=== PATIENT | female | born 1955 | race Caucasian/White ===

== ENCOUNTER 2020-05-06 06:07 | Outpatient (REF) | payer MEDICARE, OTHER, SELFPAY ==
[2020-05-06 11:26] LABS: Estimated Average Glucose 117 mg/dL; Hemoglobin A1c % 5.7 %
[2020-05-06 11:50] LABS: Anion Gap 15 (12-20); Blood Urea Nitrogen 14 mg/dL (9-16); Calcium 9.3 mg/dL (8.4-10.2); Carbon Dioxide 27 mmol/L (22-29); Chloride 106 mmol/L (96-108); Cholesterol 215 mg/dL; Estimated Glomerular Filt Rate > 60; Glucose Fasting 99 mg/dL (60-99); HDL Cholesterol 57 mg/dL; LDL Cholesterol Calculated 129 mg/dl; Potassium 4.2 mmol/l (3.3-5.1); Sodium 144 mmol/L (135-145); Triglycerides 149 mg/dL
[2020-05-06 12:16] LABS: Creatinine Urine 119.11 mg/dL; Microalbum/Creatinine Ratio Ur 11.7 ug/mg cr
== END 2020-05-06 06:08 | disposition home or self-care (01) ==
LOC: HO.HMGCLDS 06:07
PROVIDERS: PCP Internal Medicine; Visit Provider Internal Medicine
DX: E13.9 Other specified diabetes mellitus without complications (principal)
CPT/HCPCS: 80048; 80061; 82043; 83036

== ENCOUNTER 2020-09-19 | Outpatient (REF) | payer MEDICARE, OTHER, SELFPAY | END 2020-09-19 00:01 | disposition home or self-care (01) | LOC: HO.LNP | PROVIDERS: Visit Provider Hospitalist | DX: Z13.89 Encounter for screening for other disorder (principal) ==

== ENCOUNTER 2020-09-20 11:48 | Outpatient (REF) | payer MEDICARE, OTHER, SELFPAY | END 2020-09-20 11:49 | disposition home or self-care (01) | LOC: HO.LNP 11:48 | PROVIDERS: Visit Provider Hospitalist | DX: R30.0 Dysuria (principal) | CPT/HCPCS: 87086; 87088; 87186 ==

== ENCOUNTER 2020-11-29 06:00 | Outpatient (REF) | payer MEDICARE, OTHER, SELFPAY ==
[2020-11-29 11:38] LABS: Estimated Average Glucose 126 mg/dL
[2020-11-29 11:45] LABS: Alanine Aminotransferase 18 U/L (0-31); Albumin Level 4.5 g/dL (3.5-5.0); Alkaline Phosphatase 41 U/L (39-117); Anion Gap 17 (12-20); Aspartate Amino Transferase 17 U/L (5-31); Bilirubin Direct 0.2 mg/dL (0.0-0.5); Bilirubin Total 0.8 mg/dL (0.0-1.0); Blood Urea Nitrogen 13 mg/dL (9-16); Calcium 9.9 mg/dL (8.4-10.2); Carbon Dioxide 25 mmol/L (22-29); Chloride 107 mmol/L (96-108); Cholesterol 214 mg/dL; Estimated Glomerular Filt Rate > 60; Glucose Fasting 116 mg/dL (60-99); HDL Cholesterol 53 mg/dL; LDL Cholesterol Calculated 130 mg/dl; Potassium 4.2 mmol/L (3.3-5.1); Sodium 145 mmol/L (135-145); Total Protein 7.1 g/dL (6.5-8.0); Triglycerides 159 mg/dL
[2020-12-03 19:32] LABS: Vitamin D 25-OH, D2 <4 ng/mL; Vitamin D 25-OH, D3 43 ng/mL; Vitamin D 25-OH, Total 43 ng/mL (30-100)
== END 2020-11-29 06:01 | disposition home or self-care (01) ==
LOC: HO.HMGCLDS 06:00
PROVIDERS: PCP Internal Medicine; Visit Provider Internal Medicine
DX: E13.9 Other specified diabetes mellitus without complications (principal); E78.9 Disorder of lipoprotein metabolism, unspecified; G47.9 Sleep disorder, unspecified
CPT/HCPCS: 36415; 80048; 80061; 80076; 82306; 83036; 87086; 87088; 87186

== ENCOUNTER 2020-11-29 08:43 | Outpatient (REF) | payer MEDICARE, OTHER, SELFPAY | END 2020-11-29 08:44 | disposition home or self-care (01) | LOC: HO.LAB 08:43 | PROVIDERS: Visit Provider Nurse Practitioner Family | DX: Z13.89 Encounter for screening for other disorder (principal) ==

== ENCOUNTER 2021-06-15 06:06 | Outpatient (REF) | payer MEDICARE, OTHER, SELFPAY ==
[2021-06-15 11:39] LABS: Estimated Average Glucose 126 mg/dL
[2021-06-15 11:51] LABS: Alanine Aminotransferase 19 U/L (0-31); Albumin Level 4.5 g/dL (3.5-5.0); Alkaline Phosphatase 41 U/L (39-117); Anion Gap 14 (12-20); Aspartate Amino Transferase 19 U/L (5-31); Bilirubin Total 0.6 mg/dL (0.0-1.0); Blood Urea Nitrogen 14 mg/dL (9-16); Calcium 9.8 mg/dL (8.4-10.2); Carbon Dioxide 27 mmol/L (22-29); Chloride 108 mmol/L (96-108); Cholesterol 220 mg/dL; Estimated Glomerular Filt Rate > 60; Glucose Fasting 114 mg/dL (60-99); HDL Cholesterol 56 mg/dL; LDL Cholesterol Calculated 134 mg/dl; Potassium 4.2 mmol/L (3.3-5.1); Sodium 145 mmol/L (135-145); Total Protein 7.1 g/dL (6.5-8.0); Triglycerides 154 mg/dL
== END 2021-06-15 06:07 | disposition home or self-care (01) ==
LOC: HO.HMGCLDS 06:06
PROVIDERS: Visit Provider Internal Medicine
DX: E78.9 Disorder of lipoprotein metabolism, unspecified (principal); G47.9 Sleep disorder, unspecified; E13.9 Other specified diabetes mellitus without complications; M47.816 Spondylosis without myelopathy or radiculopathy, lumbar region; N39.0 Urinary tract infection, site not specified; Z85.51 Personal history of malignant neoplasm of bladder
CPT/HCPCS: 36415; 80053; 80061; 83036

== ENCOUNTER 2021-06-29 11:13 | Outpatient (REF) | payer MEDICARE, OTHER, SELFPAY ==
[2021-06-29 11:58] LABS: Appearance Urine HAZY; Color Urine STRAW; Glucose Urine UA NEG (NEG); Leukocyte Esterase Urine 2+ (NEG); Nitrite Urine POS (NEG); Specific Gravity - Urine <= 1.005 (1.005-1.025); UACC Culture Trigger YES; Urine Blood TRACE (NEG); Urine Ketones NEG (NEG); Urine Protein NEG (NEG-TRACE)
[2021-06-29 12:52] LABS: Bacteria Urine 3+ /LPF; RBC Urine 0-2 /HPF (0); Squamous Epithelial Cell Urine 1+ /LPF; WBC Clumps Urine NOTED
== END 2021-06-29 11:14 | disposition home or self-care (01) ==
LOC: HO.LNP 11:13
PROVIDERS: Visit Provider Physician Assistant Medical
DX: N30.01 Acute cystitis with hematuria (principal)
CPT/HCPCS: 81001; 81003; 87086; 87088; 87186

== ENCOUNTER 2021-07-10 09:45 | Outpatient (REF) | payer MEDICARE, OTHER, SELFPAY ==
[2021-07-10 16:22] LABS: Urine Cytology See Pathology rpt
== END 2021-07-10 09:46 | disposition home or self-care (01) ==
LOC: HO.LNP 09:45
PROVIDERS: PCP Internal Medicine
DX: N39.0 Urinary tract infection, site not specified (principal); C67.9 Malignant neoplasm of bladder, unspecified
CPT/HCPCS: 88112; 99202

== ENCOUNTER 2021-09-01 09:42 | Outpatient (REF) | payer MEDICARE, OTHER, SELFPAY ==
--- NOTE | ~2021-09-01 | XR_ITS ---
EXAMINATION: XR ABDOMEN COMPLETE CLINICAL INDICATION: Unspecified abdominal pain. COMPARISON: None TECHNIQUE: 2 views of the abdomen. FINDINGS: There is a nonobstructive bowel gas pattern. Mild gas and stool are seen within the colon distally to the rectum. Small radiopaque densities overlie the right midabdomen and kidney. The osseous structures are unremarkable. XR/XR abdomen min 2V IMPRESSION: 1. Nonobstructive bowel gas pattern. 2. Calcifications overlying the right midabdomen could represent intrarenal calculi.
[2021-09-01 11:52] LABS: Hematocrit 43.8 % (37.0-47.0); Hemoglobin 14.5 g/dl (12.0-16.0); Mean Corpuscular HGB Conc 33.1 g/dl (31.0-35.0); Mean Corpuscular Hemoglobin 32.4 pg (27.0-33.0); Mean Corpuscular Volume 97.8 fL (80.0-98.0); Platelet Count 235 X10*3/uL (160-400); Red Blood Count 4.48 X10*6/uL (4.20-5.50); Red Cell Distribution Width 12.7 % (11.0-16.0); White Blood Count 9.9 X10*3/uL (4.8-10.8)
[2021-09-01 12:07] LABS: Alanine Aminotransferase 18 U/L (0-31); Albumin Level 4.9 g/dL (3.5-5.0); Alkaline Phosphatase 52 U/L (39-117); Anion Gap 17 (12-20); Aspartate Amino Transferase 19 U/L (5-31); Bilirubin Direct 0.2 mg/dL (0.0-0.5); Bilirubin Total 0.6 mg/dL (0.0-1.0); Blood Urea Nitrogen 10 mg/dL (9-16); Calcium 10.1 mg/dL (8.4-10.2); Carbon Dioxide 25 mmol/L (22-29); Chloride 105 mmol/L (96-108); Estimated Glomerular Filt Rate > 60; Glucose Random 111 mg/dL (60-115); Potassium 4.6 mmol/L (3.3-5.1); Sodium 142 mmol/L (135-145); Total Protein 7.7 g/dL (6.5-8.0)
== END 2021-09-01 09:43 | disposition home or self-care (01) ==
LOC: HO.HMGCX 09:42
PROVIDERS: PCP Internal Medicine; Visit Provider Internal Medicine
DX: R10.9 Unspecified abdominal pain (principal)
CPT/HCPCS: 36415; 74019; 80048; 80076; 85027

== ENCOUNTER 2021-09-25 09:51 | Outpatient (REF) | payer MEDICARE, OTHER, SELFPAY ==
--- NOTE | ~2021-09-25 | US_ITS ---
EXAMINATION: US RETROPERITONEAL LIMITED (RENAL ONLY) CLINICAL INFORMATION: Malignant neoplasm of bladder, unspecified. COMPARISON: X-ray abdomen 09/01/2021 TECHNIQUE: Real-time imaging of the kidneys. FINDINGS: RIGHT KIDNEY: 10.7 x 3.8 x 5.8 cm (SAG x AP x TRV). The kidney is normal in size, contour, and echogenicity. Renal cortical thickness is normal. There are 2 small echogenic densities in the midpole suggestive of small stones. There is mild dilatation of the right renal pelvis/pelviectasis. No definite hydronephrosis/calyceal dilatation is seen. No focal parenchymal lesions. LEFT KIDNEY: 10.7 x 5.0 x 6.0 cm (SAG x AP x TRV). The kidney is normal in size, contour, and echogenicity. Renal cortical thickness is normal. No calculi or focal parenchymal lesions. No hydronephrosis. US/US renal BI IMPRESSION: Small right renal stones. Mild dilatation of the right renal pelvis or pelviectasis.
== END 2021-09-25 09:52 | disposition home or self-care (01) ==
LOC: HO.HMGCX 09:51
DX: C67.9 Malignant neoplasm of bladder, unspecified (principal)
CPT/HCPCS: 76775

== ENCOUNTER 2021-10-05 08:48 | Outpatient (REF) | payer MEDICARE, OTHER, SELFPAY ==
[2021-10-05 17:25] LABS: Urine Cytology See Pathology rpt
== END 2021-10-05 08:49 | disposition home or self-care (01) ==
LOC: HO.LAB 08:48
PROVIDERS: PCP Internal Medicine
DX: N39.0 Urinary tract infection, site not specified (principal); R31.9 Hematuria, unspecified; Z85.51 Personal history of malignant neoplasm of bladder
CPT/HCPCS: 88112; 99212

== ENCOUNTER 2021-10-31 10:22 | Outpatient (REF) | payer MEDICARE, OTHER, SELFPAY ==
--- NOTE | ~2021-10-31 | MM_ITS ---
EXAMINATION: MM SCREENING DIGITAL BREAST TOMOSYNTHESIS, BILATERAL CLINICAL INFORMATION: Screening. Asymptomatic. The lifetime risk of breast cancer based on the Tyrer-Cuzick Model is 3.3%. COMPARISON: Mammography: November 25, 2017 and studies dating back to October 06, 2003 TECHNIQUE: Digital breast tomosynthesis is performed in both the craniocaudal and mediolateral oblique views along with computer-aided detection (CAD). Synthesized 2D images are generated from the tomosynthesis. FINDINGS: The breasts are almost entirely fatty (ACR BI-RADS breast composition Category a). There are no significant masses, abnormal calcifications, or other abnormalities. MM/MM tomosynthesis screening BI IMPRESSION: There are no significant changes from prior study. ASSESSMENT: BI-RADS 1: Negative RECOMMENDATION: Routine annual mammography screening. This patient's information was entered into a reminder system with a target due date for their next mammogram.
== END 2021-10-31 10:23 | disposition home or self-care (01) ==
LOC: HO.MAMMO 10:22
PROVIDERS: Visit Provider Internal Medicine
DX: Z12.31 Encounter for screening mammogram for malignant neoplasm of breast (principal)
CPT/HCPCS: 77063; 77067

== ENCOUNTER 2022-01-01 11:43 | Outpatient (REF) | payer MEDICARE, OTHER, SELFPAY | END 2022-01-01 11:44 | disposition home or self-care (01) | LOC: HO.LNP 11:43 | PROVIDERS: Visit Provider Nurse Practitioner Family | DX: R35.0 Frequency of micturition (principal) | CPT/HCPCS: 87086; 87088; 87186 ==

== ENCOUNTER 2022-02-09 06:07 | Outpatient (REF) | payer MEDICARE, OTHER, SELFPAY ==
[2022-02-09 11:39] LABS: Estimated Average Glucose 123 mg/dL; Hemoglobin A1c % 5.9 %
[2022-02-09 12:03] LABS: Alanine Aminotransferase 19 U/L (0-31); Albumin Level 4.5 g/dL (3.5-5.0); Alkaline Phosphatase 42 U/L (39-117); Anion Gap 16 (12-20); Aspartate Amino Transferase 20 U/L (5-31); Bilirubin Total 0.5 mg/dL (0.0-1.0); Blood Urea Nitrogen 13 mg/dL (9-16); Calcium 9.8 mg/dL (8.4-10.2); Carbon Dioxide 26 mmol/L (22-29); Chloride 109 mmol/L (96-108); Estimated Glomerular Filt Rate > 60; Glucose Random 112 mg/dL (60-115); Potassium 4.2 mmol/L (3.3-5.1); Sodium 147 mmol/L (135-145); Total Protein 7.1 g/dL (6.5-8.0)
[2022-02-09 12:07] LABS: Creatinine Urine 86.22 mg/dL; Microalbum/Creatinine Ratio Ur 13.9 ug/mg cr
[2022-02-12 02:12] LABS: LDL Cholesterol Direct 157 mg/dL (<100)
== END 2022-02-09 06:08 | disposition home or self-care (01) ==
LOC: HO.HMGCLDS 06:07
PROVIDERS: PCP Internal Medicine; Visit Provider Internal Medicine
DX: Z00.01 Encounter for general adult medical examination with abnormal findings (principal); M47.816 Spondylosis without myelopathy or radiculopathy, lumbar region; G47.9 Sleep disorder, unspecified; E78.9 Disorder of lipoprotein metabolism, unspecified; E13.9 Other specified diabetes mellitus without complications
CPT/HCPCS: 36415; 80053; 82043; 83036; 83721

== ENCOUNTER 2022-03-14 08:18 | Day surgery (SDC) | payer MEDICARE, OTHER, SELFPAY ==
--- NOTE | 2022-03-13 12:10 | HO.ANESPROP2 ---
Documented by User: Mae Monroy NP 03/13/22 12:11 HPI - Anesthesia Eval Consult details Narrative: 66yo for Colonoscopy PMFSH Active Problems Active Problems: All Active Problems (Updated 03/13/22 @ 11:15 by Elida Georges RN) Lipid disorder (Acute) Difficulty sleeping (Acute) Dysuria (Acute) UTI (urinary tract infection) (Acute) Lipid disorder (Acute) Degenerative joint disease (DJD) of lumbar spine (Acute) Recurrent UTI (Acute) Recurrent UTI (Acute) Abdominal pain (Acute) Encounter for general adult medical examination with abnormal findings (Acute) Encounter for routine gynecological examination (Acute) Breast screening (Acute) Left lumbar radiculitis (Acute) Anxiety, generalized (Acute) Renal calculi (Acute) History of bladder cancer (Acute) Bladder cancer (Acute) Diabetes 1.5, managed as type 2 (Acute) Past Medical History Medical History Anxiety Arthritis Diabetes 1.5, managed as type 2 Endometriosis Family history of colon cancer in father Family history of throat cancer History of bladder cancer Hx of lipoma Hyperlipidemia Renal calculi Family History Family History Father Throat cancer Mother CVD (cardiovascular disease) Heart disease Kidney disease Sister Metastatic cancer Maternal Grandmother No problems noted. Maternal Grandfather No problems noted. Paternal Grandfather No problems noted. Paternal Grandmother No problems noted. Sister No problems noted. Sister No problems noted. Son No problems noted. Daughter No problems noted. Daughter Substance use disorder Surgical History Surgical History History of biopsy History of bladder surgery History of colonoscopy History of eye surgery History of hysterectomy History of laryngoscopy Hx of hysterectomy Social History Social History Housing: House Alcohol intake: never Patient Tobacco Use Status: Current everyday Tobacco user Cigarette Packs Per Day: 0.5 e-Cigarette/Vaping Use: Never Used Are you DNR?: No Advance Directives: No Advance Directives Information Provided: Yes Recently lost weight without trying: No Nutrition Risks: No Nutritional Risk Current occupational status: retired Cognitive needs: No Hearing needs: No Vision needs: Yes Meds Allergies Allergy/AdvReac Type Severity Reaction Status Date / Time levofloxacin [From LEVAQUIN] Allergy Unknown RED LINE Verified 02/21/22 13:55 UP ARM FROM IV SITE, redness, itching, swelling varenicline Allergy Unknown agitation Verified 02/21/22 13:55 barium sulfate AdvReac Unknown agitation Verified 02/21/22 13:55 levaquin Allergy Unknown redness/itc Uncoded 02/21/22 13:55 mendy/sara mckay Home Medications Medication Instructions Recorded Confirmed Last Taken Type brimonidine 0.2 % eye drops 1 drp ophthalmic (eye) BID 07/12/20 03/14/22 03/13/22 History cholecalciferol (vitamin D3) 25 25 mcg PO DAILY 07/12/20 03/14/22 03/07/22 History mcg (1,000 unit) tablet multivitamin (Daily Multi-Vitamin 1 tab PO DAILY 07/12/20 03/14/22 03/07/22 History tablet) aspirin 81 mg tablet,delayed 81 mg PO DAILY 11/29/20 03/14/22 02/28/22 History release (Adult Aspirin Regimen) bimatoprost 0.01 % eye drops 1 drp ophthalmic (eye) BEDTIME 12/06/20 03/14/22 03/13/22 History dorzolamide 2 % eye drops 1 drp ophthalmic (eye) DAILY 06/14/21 03/14/22 03/13/22 History timolol 0.25 % eye drops 1 drp ophthalmic (eye) DAILY 02/21/22 03/14/22 03/13/22 History Exam Exam Date and Time: March 13, 2022 121 Pertinent Lab Results Pertinent Lab Results: Laboratory Tests 09/01/21 02/09/22 10:00 06:14 WBC 9.9 Hgb 14.5 Hct 43.8 Plt Count 235 Sodium 147 H Potassium 4.2 Chloride 109 H Carbon Dioxide 26 BUN 13 Creatinine 0.80 Assessment and Plan Assessment Anesthesia Assessment: Chart Reviewed Documented by User: Mindy Gill MD 03/14/22 10:22 [facility] Past Medical History Medical History Anxiety Arthritis Diabetes 1.5, managed as type 2 Endometriosis Family history of colon cancer in father Family history of throat cancer History of bladder cancer Hx of lipoma Hyperlipidemia Renal calculi Family History Family History Father Throat cancer Mother CVD (cardiovascular disease) Heart disease Kidney disease Sister Metastatic cancer Maternal Grandmother No problems noted. Maternal Grandfather No problems noted. Paternal Grandfather No problems noted. Paternal Grandmother No problems noted. Sister No problems noted. Sister No problems noted. Son No problems noted. Daughter No problems noted. Daughter Substance use disorder Surgical History Surgical History History of biopsy History of bladder surgery History of colonoscopy History of eye surgery History of hysterectomy History of laryngoscopy Hx of hysterectomy History of Problems with Anesthesia: No Social History Social History Housing: House Alcohol intake: never Patient Tobacco Use Status: Current everyday Tobacco user Cigarette Packs Per Day: 0.5 e-Cigarette/Vaping Use: Never Used Are you DNR?: No Advance Directives: No Advance Directives Information Provided: Yes Recently lost weight without trying: No Nutrition Risks: No Nutritional Risk Current occupational status: retired Cognitive needs: No Hearing needs: No Vision needs: Yes Meds Allergies Allergy/AdvReac Type Severity Reaction Status Date / Time levofloxacin [From LEVAQUIN] Allergy Unknown RED LINE Verified 02/21/22 13:55 UP ARM FROM IV SITE, redness, itching, swelling varenicline Allergy Unknown agitation Verified 02/21/22 13:55 barium sulfate AdvReac Unknown agitation Verified 02/21/22 13:55 levaquin Allergy Unknown redness/itc Uncoded 02/21/22 13:55 mendy/swelli ng Home Medications Medication Instructions Recorded Confirmed Last Taken Type brimonidine 0.2 % eye drops 1 drp ophthalmic (eye) BID 07/12/20 03/14/22 03/13/22 History cholecalciferol (vitamin D3) 25 25 mcg PO DAILY 07/12/20 03/14/22 03/07/22 History mcg (1,000 unit) tablet multivitamin (Daily Multi-Vitamin 1 tab PO DAILY 07/12/20 03/14/22 03/07/22 History tablet) aspirin 81 mg tablet,delayed 81 mg PO DAILY 11/29/20 03/14/22 02/28/22 History release (Adult Aspirin Regimen) bimatoprost 0.01 % eye drops 1 drp ophthalmic (eye) BEDTIME 12/06/20 03/14/22 03/13/22 History dorzolamide 2 % eye drops 1 drp ophthalmic (eye) DAILY 06/14/21 03/14/22 03/13/22 History timolol 0.25 % eye drops 1 drp ophthalmic (eye) DAILY 02/21/22 03/14/22 03/13/22 History Exam Airway Mallampati Class: II (Edentulous) TM Dist: >3cm Neck ROM: Full Denture: Upper and Lower Loose/Missing/Broken Teeth: Yes, Upper and Lower Heart: RRR Lungs: CTA Assessment and Plan Assessment Anesthesia Assessment: Anesthesia Plan Discussed Final Anesthetic Review History of Problems with Anesthesia: No NPO: Yes ASA Class: II Final Preanesthetic Review: Meds/Allgs Chart Reviewed, Consent Obtained/Reviewed and Anes Risks/Benef Reviewed Patient Risk: Low Procedure Risk: Low Anesthetic Plan Anesthetic Plan: MAC: Disposition: Standard PACU
[2022-03-14 07:14] VITALS: BMI 23.9
[2022-03-14 08:31] VITALS: BP 105/74; PULSE 102; RESP 17; TEMP 36.6; O2SAT 98
[2022-03-14 08:48] LABS: Glucose, Whole Blood 126 mg/dL (60-115)
[2022-03-14] MEDS: Lactated Ringers 1,000 ML 100 ML IVCONT (08:57)
[2022-03-14 11:04] VITALS: BP 140/75; PULSE 95; RESP 18; TEMP 36.5; O2SAT 99
--- NOTE | 2022-03-14 11:05 | PM.OP ---
Brief Operative Note Date of Service: 03/14/22 Pre-op diagnosis: Screening Post-op diagnosis: other (Colon polyp) Procedure: Colonoscopy to the cecum with hot snare polypectomy Surgeon: Jian Ro Anesthesia: MAC Was an Automotive Engineer used for this Procedure?: No Estimated blood loss (mL): 1.0 Pathology: other (A. Transverse colon polyp) Condition: stable Disposition: PACU
[2022-03-14 11:19] VITALS: BP 151/73; PULSE 75; RESP 18; TEMP 36.6; O2SAT 99
[2022-03-14 11:38] VITALS: BP 130/76; PULSE 75; RESP 18; TEMP 36.5; O2SAT 99
--- NOTE | 2022-03-14 11:40 | OP_ITS ---
SURGEON: Jian Ro MD INDICATIONS: The patient presents for evaluation of colorectal cancer screening and family history of colon cancer. Full consent has been obtained from her for this, including risks of bleeding and perforation. PREOPERATIVE DIAGNOSIS: POSTOPERATIVE DIAGNOSIS: PROCEDURE PERFORMED: Colonoscopy to the cecum and terminal ileum with hot snare polypectomy. ESTIMATED BLOOD LOSS: COMPLICATIONS: ANESTHESIA: Monitored anesthesia care. ASSISTANTS: SPECIMENS: PREOPERATIVE DIAGNOSES: Colorectal cancer screening, personal history of tubular adenoma of the colon, family history of colon cancer. POSTOPERATIVE DIAGNOSES: Colorectal cancer screening, personal history of tubular adenoma of the colon, family history of colon cancer, colon polyp, diverticulosis, and internal hemorrhoids. DESCRIPTION OF PROCEDURE: The patient was placed in left lateral decubitus position. The digital rectal exam revealed no abnormalities. The Olympus video pediatric colonoscope was entered into the rectum and advanced easily to the cecum. Once in the cecum, I did identify a normal-appearing cecal pouch with appendiceal orifice and a normal-appearing ileocecal valve. The terminal ileum was cannulated and appeared normal. Scope was withdrawn back in the colon. The entire cecum and ileocecal valve appeared normal. The scope was slowly withdrawn assessing all mucosal surfaces carefully. Preparation was excellent. In the area of the transverse colon was an approximately 12 mm polyp on a fold, which was removed by hot snare polypectomy in piecemeal fashion with pieces recovered by suction. Post polypectomy, there did not appear to be any residual polyp nor bleeding. I did not visualize any other polyps, colitis, nor angiodysplasia. There was a moderate amount of diverticulosis in the sigmoid colon. In the rectum, scope was retroflexed visualizing some internal hemorrhoids but no other pathology. The rectal mucosa appeared normal. The scope was straightened and withdrawn from the patient. She tolerated the procedure well and was returned to the recovery area in stable condition. IMPRESSION: 1. Colon polyp. 2. Diverticulosis. 3. Internal hemorrhoids. PLAN: The results of the pathology will be checked. Given her previous history of a tubular adenoma and family history of colon cancer, I would recommend a followup colonoscopy in 5 years for further screening. She will otherwise see me on a p.r.n. basis. She was advised not to use any aspirin or NSAIDs for 1 week. MD DESHAWN Sanchez/THANG / [id number]
== END 2022-03-14 12:00 | disposition home or self-care (01) ==
PROVIDERS: PCP Internal Medicine; Visit Provider Internal Medicine
PROC: 0DJD8ZZ Inspection of Lower Intestinal Tract, Via Natural or Artificial Opening Endoscopic (ICD-10-PCS; CPT 45378; principal; 2022-03-14 09:40)
DX: Z12.11 Encounter for screening for malignant neoplasm of colon (principal); Z86.010 Personal history of colon polyps; K64.8 Other hemorrhoids; Z80.0 Family history of malignant neoplasm of digestive organs; K59.00 Constipation, unspecified; D12.3 Benign neoplasm of transverse colon; K57.30 Diverticulosis of large intestine without perforation or abscess without bleeding; E11.9 Type 2 diabetes mellitus without complications; E78.5 Hyperlipidemia, unspecified; Z85.51 Personal history of malignant neoplasm of bladder; Z79.84 Long term (current) use of oral hypoglycemic drugs; Z79.82 Long term (current) use of aspirin; Z79.899 Other long term (current) drug therapy; F17.200 Nicotine dependence, unspecified, uncomplicated; Z98.890 Other specified postprocedural states
CPT/HCPCS: 45385; 82947; 88305

== ENCOUNTER 2022-09-20 06:02 | Outpatient (REF) | payer MEDICARE, OTHER, SELFPAY ==
[2022-09-20 11:38] LABS: Appearance Urine Clear; Color Urine Yellow; Glucose Urine UA Negative (Negative); Leukocyte Esterase Urine Trace (Negative); Nitrite Urine Negative (Negative); PH 5.5 (5.0-9.0); Specific Gravity - Urine 1.015 (1.005-1.025); UMIC TRIGGER UACC YES; Urine Blood Negative (Negative); Urine Ketones Negative (Negative); Urine Protein Negative (Neg-Trace)
[2022-09-20 11:43] LABS: Bacteria Urine None Seen (None Seen); Hyaline Casts Urine 0-2 /LPF (0-2); RBC Urine 0-2 /HPF (0-2); WBC Urine 0-5 /HPF (0-5)
[2022-09-20 11:53] LABS: Estimated Average Glucose 128 mg/dL; Hemoglobin A1c % 6.1 %
[2022-09-20 12:36] LABS: Alanine Aminotransferase 18 U/L (0-31); Albumin Level 4.5 g/dL (3.5-5.0); Alkaline Phosphatase 37 U/L (39-117); Anion Gap 14 (12-20); Aspartate Amino Transferase 21 U/L (5-31); Bilirubin Total 0.7 mg/dL (0.0-1.0); Blood Urea Nitrogen 15 mg/dL (9-16); Calcium 9.6 mg/dL (8.4-10.2); Carbon Dioxide 27 mmol/L (22-29); Chloride 109 mmol/L (96-108); Cholesterol 208 mg/dL; Estimated Glomerular Filt Rate > 60; Glucose Fasting 108 mg/dL (60-99); HDL Cholesterol 51 mg/dL; LDL Cholesterol Calculated 133 mg/dl; Potassium 4.5 mmol/L (3.3-5.1); Sodium 145 mmol/L (135-145); Total Protein 6.8 g/dL (6.5-8.0); Triglycerides 122 mg/dL
[2022-09-20 12:37] LABS: Creatinine Urine 97.92 mg/dL; Microalbum/Creatinine Ratio Ur 9.1 ug/mg cr
== END 2022-09-20 06:03 | disposition home or self-care (01) ==
LOC: HO.HMGCLDS 06:02
PROVIDERS: PCP Internal Medicine; Visit Provider Internal Medicine
DX: E13.9 Other specified diabetes mellitus without complications (principal); F41.1 Generalized anxiety disorder; E78.9 Disorder of lipoprotein metabolism, unspecified; G47.9 Sleep disorder, unspecified
CPT/HCPCS: 36415; 80053; 80061; 81001; 82043; 83036

== ENCOUNTER 2022-10-14 18:53 | Emergency (ER) | payer MEDICARE, OTHER, SELFPAY ==
[2022-10-14 18:57] VITALS: BP 117/75; PULSE 94; RESP 18; TEMP 36.8; O2SAT 96; BMI 24.4
[2022-10-14 19:29] LABS: Alanine Aminotransferase 18 U/L (0-31); Albumin Level 4.5 g/dL (3.5-5.0); Alkaline Phosphatase 39 U/L (39-117); Anion Gap 13 (12-20); Aspartate Amino Transferase 19 U/L (5-31); Bilirubin Total 0.4 mg/dL (0.0-1.0); Blood Urea Nitrogen 15 mg/dL (9-16); Carbon Dioxide 25 mmol/L (22-29); Chloride 109 mmol/L (96-108); Creatinine Clr Calc Pharmacy 59.2; Estimated Glomerular Filt Rate > 60; Glucose Random 97 mg/dL (60-115); Potassium 4.9 mmol/L (3.3-5.1); Sodium 142 mmol/L (135-145)
[2022-10-14 19:46] LABS: Hematocrit 39.9 % (37.0-47.0); Hemoglobin 13.2 g/dl (12.0-16.0); Mean Corpuscular HGB Conc 33.1 g/dl (31.0-35.0); Mean Corpuscular Hemoglobin 32.2 pg (27.0-33.0); Mean Corpuscular Volume 97.3 fL (80.0-98.0); Mean Platelet Volume 10.2 fL (9.4-12.3); Platelet Count 197 X10*3/uL (160-400); Red Cell Distribution Width 12.7 % (11.0-16.0)
[2022-10-14 19:51] VITALS: BP 143/61; PULSE 82; RESP 16; TEMP 36.8; O2SAT 97
[2022-10-14 19:51] LABS: WBC ABN SCTR FOR CBC 1
--- NOTE | 2022-10-14 19:54 | MHC.EDTECH ---
THIS PCT JUST ASSUMED CARE OF PT VITALS SIGN TAKEN ,URINE SAMPLE COLLECTED AND SENT TO LAB .
[2022-10-14 19:57] LABS: Eosinophils Percent Manual 1 % (0-4)
[2022-10-14 20:00] LABS: RBC Morphology NORMAL
[2022-10-14 20:01] LABS: Platelet Estimate NORMAL (NORMAL); Platelet Morphology Comment NORM
[2022-10-14 20:06] LABS: Lymphocytes Percent Manual 26 % (20-40); Monocytes Percent Manual 6 % (2-11); Neutrophils Percent Manual 67 % (45-73)
[2022-10-14 20:07] LABS: Band Neutrophils Percent 0 % (3-5); Eosinophils Absolute Manual 0.2 X10*3/uL (0.0-0.4); Lymphocytes Absolute Manual 4.8 X10*3/uL (1.2-4.9); Monocytes Absolute Manual 1.1 X10*3/uL (0.1-1.2); Neutrophils Absolute Manual 12.5 X10*3/uL (2.0-8.3); White Blood Count 18.6 X10*3/uL (4.8-10.8)
--- NOTE | 2022-10-14 20:07 | ED.FEMALEGU ---
HPI - Female Genitourinary General Chief complaint: Urogenital-Female Stated complaint: ?UTI Time Seen by Provider: 10/14/22 20:03 Source: patient Mode of arrival: ambulatory Limitations: no limitations History of Present Illness HPI Narrative: Patient with History of bladder cancer were 25 years ago with frequent UTI for last 2 years last documented UTI with culture positive was 01/01/2022 E coli. comes here for hematuria started today with dysuria and inability to empty the bladder. Patient took 2 courses of nitrofurantoin from 09/07 for UTI symptoms which got improved. Patient never had hematuria in the past never had cystoscopy after bladder cancer 25 years ago. Does have history of anxiety and stress no back pain or flank pain the fever or chills no history of kidney stone blood was bright red when she urinated today Related Data Home Medications Medication Instructions Recorded Confirmed brimonidine 0.2 % eye drops 1 drp ophthalmic (eye) BID 07/12/20 10/02/22 cholecalciferol (vitamin D3) 25 25 mcg PO DAILY 07/12/20 10/02/22 mcg (1,000 unit) tablet multivitamin (Daily Multi-Vitamin 1 tab PO DAILY 07/12/20 10/02/22 tablet) aspirin 81 mg tablet,delayed 81 mg PO DAILY 11/29/20 10/02/22 release (Adult Aspirin Regimen) bimatoprost 0.01 % eye drops 1 drp ophthalmic (eye) BEDTIME 12/06/20 10/02/22 dorzolamide 2 % eye drops 1 drp ophthalmic (eye) DAILY 06/14/21 10/02/22 Previous Rx's Medication Instructions Recorded simvastatin 40 mg tablet 40 mg PO DAILY 90 days #90 tabs 06/05/22 fenofibrate 160 mg tablet 160 mg PO DAILY 90 days #90 tabs 09/07/22 metformin 500 mg tablet 500 mg PO BID 90 days #180 tabs 09/25/22 lorazepam 0.5 mg tablet 0.5 mg PO DAILY PRN sleep 30 days 10/02/22 #30 tabs oxycodone 5 mg tablet 5 mg PO ONCE PRN pain 10 days #10 10/02/22 tabs cefuroxime axetil 250 mg tablet 250 mg PO BID 10 days #20 tabs 10/14/22 phenazopyridine 200 mg tablet 200 mg PO TID 2 days #6 tabs 10/14/22 (Pyridium) Allergies Allergy/AdvReac Type Severity Reaction Status Date / Time levofloxacin [From LEVAQUIN] Allergy Intermediate RED LINE Verified 10/14/22 18:57 UP ARM FROM IV SITE, redness, itching, swelling varenicline Allergy Intermediate agitation Verified 10/14/22 18:57 barium sulfate AdvReac Intermediate agitation Verified 10/14/22 18:57 levaquin Allergy Intermediate redness/itc Uncoded 10/14/22 18:57 mendy/sara mckay Review of Systems Review of Systems: Yes all other systems are reviewed and are negative [facility] Past Medical History Medical History Anxiety Arthritis Diabetes 1.5, managed as type 2 Endometriosis Family history of colon cancer in father Family history of throat cancer History of bladder cancer Hx of lipoma Hyperlipidemia Renal calculi Surgical History History of biopsy History of bladder surgery History of colonoscopy History of eye surgery History of hysterectomy History of laryngoscopy Hx of hysterectomy Family History Family History Father Throat cancer Mother CVD (cardiovascular disease) Heart disease Kidney disease Sister Metastatic cancer Maternal Grandmother No problems noted. Maternal Grandfather No problems noted. Paternal Grandfather No problems noted. Paternal Grandmother No problems noted. Sister No problems noted. Sister No problems noted. Son No problems noted. Daughter No problems noted. Daughter Substance use disorder Social History Social History Housing: House Alcohol intake: never Patient Tobacco Use Status: Current everyday Tobacco user Tobacco use type: Cigarette Cigarette Packs Per Day: 0.5 Cigarettes Per Day: 7 Smoked in Last 30 Days: No e-Cigarette/Vaping Use: Never Used Second Hand Smoke Exposure: Yes Advance Directives: No Advance Directives Information Provided: No service: No Current occupational status: retired Cognitive needs: No Hearing needs: No Vision needs: Yes Physical Exam Vital Signs: Vital Signs: Last Vital Signs Temp 98.2 F 10/14/22 19:51 Pulse 74 10/14/22 21:53 Resp 16 10/14/22 19:51 BP 143/77 H 10/14/22 21:53 Pulse Ox 96 10/14/22 21:53 O2 Del Method Room Air 10/14/22 21:53 BMI result Body Mass Index 24.4 Appearance: Alert. Oriented X3. No acute distress. Eyes: No pallor or icterus ENT: Pharynx normal. Oral Mucosa moist Neck: Normal inspection. Neck supple. CVS: Normal heart rate and rhythm. Pulses normal. Respiratory: No respiratory distress. Equal air entry bilateral, no wheezing/rales/rhonchi Abdomen: Soft and nontender. Bowel sounds are present, no mass palpable, no CVA tenderness Skin: Skin warm and dry. Normal skin color. Normal skin turgor. Extremities: No lower extremity edema. No calf tenderness Neuro: Oriented X 3. Medications Administered Discontinued Medications Generic Name Dose Route Start Last Admin Trade Name Freq PRN Reason Stop Dose Admin Ceftriaxone Sodium 1 gm/ 50 mls @ 100 mls/hr 10/14/22 21:12 10/14/22 22:41 Sodium Chloride IV 10/14/22 21:41 Infused ONCE ONE Infusion Sodium Chloride 1,000 mls @ 999 mls/hr 10/14/22 21:12 10/14/22 22:48 Ns IV 10/14/22 22:12 Infused .Q1H1M ONE Infusion Phenazopyridine HCl 200 mg 10/14/22 20:37 10/14/22 21:51 Phenazopyridine Hcl 200 Mg Tablet PO 10/14/22 20:38 200 mg ONCE ONE Administration Medical Decision Making Medical Decision Making [facility] Narrative: Patient with leukocytosis with WBCs and leuko esterase positive and with low-grade fever was given Rocephin IV in the ER will discharge patient on Ceftin advised to follow with PCP/urology Lab Data [facility] Lab Attestation statement: I reviewed the patient's lab results. 10/14/22 19:06 10/14/22 19:06 Labs: Lab Results 10/14/22 10/14/22 10/14/22 Range/Units 19:06 19:06 19:53 WBC 18.6 H (4.8-10.8) X10*3/uL RBC 4.10 L (4.20-5.50) X10*6/uL Hgb 13.2 (12.0-16.0) g/dl Hct 39.9 (37.0-47.0) % MCV 97.3 (80.0-98.0) fL MCH 32.2 (27.0-33.0) pg MCHC 33.1 (31.0-35.0) g/dl RDW 12.7 (11.0-16.0) % Plt Count 197 (160-400) X10*3/uL MPV 10.2 (9.4-12.3) fL Immature Gran % (Auto) Cancelled Neut % (Auto) Cancelled Lymph % (Auto) Cancelled [place] % (Auto) Cancelled Eos % (Auto) Cancelled Baso % (Auto) Cancelled Lymph # (Auto) Cancelled [place] # (Auto) Cancelled Eos # (Auto) Cancelled Baso # (Auto) Cancelled Abs Immat Gran (auto) Cancelled Absolute Neuts (auto) Cancelled Absolute Nucleated RBC 0.000 (0.0-0.012) X10*3/uL Nucleated RBC % (auto) 0.0 (0.0-0.2) /100WBC Neutrophils % (Manual) 67 (45-73) % Band Neutrophils % 0 L (3-5) % Lymphocytes % (Manual) 26 (20-40) % Monocytes % (Manual) 6 (2-11) % Eosinophils % (Manual) 1 (0-4) % Abs Neuts (Manual) 12.5 H (2.0-8.3) X10*3/uL Lymphocytes # (Manual) 4.8 (1.2-4.9) X10*3/uL Monocytes # (Manual) 1.1 (0.1-1.2) X10*3/uL Eosinophils # (Manual) 0.2 (0.0-0.4) X10*3/uL Platelet Estimate NORMAL (NORMAL) Plt Morphology Comment NORM RBC Morphology NORMAL Sodium 142 (135-145) mmol/L Potassium 4.9 (3.3-5.1) mmol/L Chloride 109 H (96-108) mmol/L Carbon Dioxide 25 (22-29) mmol/L Anion Gap 13 (12-20) BUN 15 (9-16) mg/dL Creatinine 0.83 (0.5-1.4) mg/dL Estim Creat Clear Calc 59.2 Estimated GFR > 60 Random Glucose 97 (60-115) mg/dL Calcium 10.0 (8.4-10.2) mg/dL Total Bilirubin 0.4 (0.0-1.0) mg/dL AST 19 (5-31) U/L ALT 18 (0-31) U/L Alkaline Phosphatase 39 (39-117) U/L Total Protein 7.0 (6.5-8.0) g/dL Albumin 4.5 (3.5-5.0) g/dL Urine Color DK YELLOW Urine Appearance Turbid Urine pH 6.0 (5.0-9.0) Ur Specific [place] >= 1.030 H (1.005-1.025) Urine Protein 100 (2+) H (Neg-Trace) mg/dL Urine Glucose (UA) Negative (Negative) mg/dL Urine Ketones Trace (Negative) mg/dL Urine Blood Large (3+) H (Negative) Urine Nitrite Negative (Negative) Ur Leukocyte Esterase Large (3+) H (Negative) Urine RBC >20 H (0-2) /HPF Urine WBC >50 H (0-5) /HPF Ur Squamous Epith Cells 11-20 (0-2) /HPF Calcium Oxalate Crystal Present Urine Bacteria 1+ (None Seen) Hyaline Casts 0-2 (0-2) /LPF Discharge Plan Discharge Clinical Impression: UTI (urinary tract infection) Patient Disposition: Home, Self-Care Instructions: Urinary Tract Infection in Women (ED) Additional Instructions: Drink plenty of fluids Take antibiotic as prescribed Follow-up with urologist for further evaluation including cystoscopy Prescriptions: New cefuroxime axetil 250 mg tablet 250 mg PO BID 10 Days Qty: 20 0RF phenazopyridine [Pyridium] 200 mg tablet 200 mg PO TID 2 Days Qty: 6 0RF No Action fenofibrate 160 mg tablet 160 mg PO DAILY 90 Days Qty: 90 1RF metformin 500 mg tablet 500 mg PO BID 90 Days Qty: 180 1RF aspirin [Adult Aspirin Regimen] 81 mg tablet,delayed release (DR/EC) 81 mg PO DAILY multivitamin [Daily Multi-Vitamin] Tablet 1 tab PO DAILY cholecalciferol (vitamin D3) 25 mcg (1,000 unit) tablet 25 mcg PO DAILY brimonidine 0.2 % drops 1 drp ophthalmic (eye) BID [place] 0.01 % drops 1 drp ophthalmic (eye) BEDTIME dorzolamide 2 % drops 1 drp ophthalmic (eye) DAILY simvastatin 40 mg tablet 40 mg PO DAILY 90 Days Qty: 90 1RF lorazepam 0.5 mg tablet 0.5 mg PO DAILY PRN (Reason: sleep) 30 Days Qty: 30 0RF oxycodone 5 mg tablet 5 mg PO ONCE PRN (Reason: pain) 10 Days Qty: 10 0RF Referrals: Fernando Iglesias MD [Physician] - 1 week Interventions: ED Discharge Assessment Last Done: 10/14/22 22:50 Discharge Date/Time: 10/14/22 22:50
[2022-10-14 20:08] LABS: Appearance Urine Turbid; Color Urine DK YELLOW; Glucose Urine UA Negative (Negative); Leukocyte Esterase Urine Large (3+) (Negative); Nitrite Urine Negative (Negative); Specific Gravity - Urine >= 1.030 (1.005-1.025); UMIC TRIGGER UACC YES; Urine Blood Large (3+) (Negative); Urine Ketones Trace mg/dL (Negative); Urine Protein 100 (2+) mg/dL (Neg-Trace)
[2022-10-14 20:44] LABS: Bacteria Urine 1+ (None Seen); Calcium Oxalate Crystals Urine Present; Hyaline Casts Urine 0-2 /LPF (0-2); RBC Urine >20 /HPF (0-2); UACC Culture Trigger YES; WBC Urine >50 /HPF (0-5)
[2022-10-14] MEDS: 0.9 % Sodium Chloride 1,000 ML 999 ML IV (21:45)
[2022-10-14] MEDS: Phenazopyridine HCL 200 MG TABLET PO (21:51)
[2022-10-14] MEDS: cefTRIAXone sodium 1 GM in 0.9 % Sodium Chloride 50 ML IV (21:52)
[2022-10-14 21:53] VITALS: BP 143/77; PULSE 74; O2SAT 96
--- NOTE | 2022-10-14 21:58 | PC.NURSE ---
per MD no blood cultures needed for rocephin
== END 2022-10-14 22:50 | disposition home or self-care (01) ==
PROVIDERS: Emergency Provider Internal Medicine; PCP Internal Medicine
DX: N39.0 Urinary tract infection, site not specified (principal); F17.210 Nicotine dependence, cigarettes, uncomplicated; Z71.6 Tobacco abuse counseling; Z79.899 Other long term (current) drug therapy
CPT/HCPCS: 36415; 80053; 81001; 81003; 85007; 85027; 87086; 87088; 87186; 96365; 99284; J0696

== ENCOUNTER 2022-11-08 11:23 | Outpatient (REF) | payer MEDICARE, OTHER, SELFPAY | END 2022-11-08 11:24 | disposition home or self-care (01) | LOC: HO.LAB 11:23 | PROVIDERS: PCP Internal Medicine; Visit Provider Urology | DX: N39.0 Urinary tract infection, site not specified (principal); R31.0 Gross hematuria; Z85.51 Personal history of malignant neoplasm of bladder | CPT/HCPCS: 51798; 88121; 99202 ==

== ENCOUNTER 2022-12-05 08:35 | Outpatient (REF) | payer MEDICARE, OTHER, SELFPAY ==
--- NOTE | ~2022-12-05 | CT_ITS ---
EXAMINATION: CT ABDOMEN AND PELVIS WITHOUT AND WITH CONTRAST CLINICAL INFORMATION: History of bladder cancer, recent gross hematuria. COMPARISON: 09/25/2021 renal ultrasound TECHNIQUE: Noncontrast CT of the abdomen and pelvis is performed followed by split bolus contrast-enhanced images using 85 mL Omnipaque 350 contrast.? Postcontrast imaging is performed during the combined nephrogram and excretion phase. Sagittal and coronal reformatted images were obtained on the technologist's workstation for both the precontrast and postcontrast phases. This CT examination was performed using dose optimization techniques as appropriate, variously including the following: *Automated exposure control *Adjustment of mA and/or kV according to patient size (this includes techniques or standardized protocols for targeted exams where dose is matched to indication/reason for exam; i.e. extremities or head) *Use of iterative reconstruction technique DLP: 281.6 mGy-cm FINDINGS: EXPERIMENTAL DISPLAY BUILDER: Nonobstructive bowel pattern. L5-S1 disc disease. LUNG BASES: Mild lingular atelectasis otherwise the visualized lung bases are unremarkable. Nonenlarged heart. No pericardial effusion. LIVER, GALLBLADDER, AND BILIARY TREE: Diffuse hypodensity to the liver parenchyma. Focal hypodensity adjacent to the gallbladder likely focal fatty deposition. Liver is enlarged measuring 16.2 cm. No focal hepatic lesion or biliary ductal dilatation is present. The gallbladder contains radiopaque gallstones. No gallbladder wall thickening, dilatation, pericholecystic fluid or obvious pericholecystic inflammatory changes. PANCREAS: Unremarkable. SPLEEN: Unremarkable. ADRENAL GLANDS: Unremarkable. KIDNEYS AND URETERS: Right kidney measures 11 cm, left measures 11.5 cm in longest sagittal projection. Too small to characterize left upper pole hypodensity likely cyst. No suspicious renal parenchymal lesions. No obvious filling defects in the intrarenal or ureteral collecting systems. Mild right hydronephrosis. Mild right proximal and mid ureteral prominence. 4 mm right midpole renal calculus. No perinephric stranding. BLADDER: Inferior aspect of the urinary bladder was not included on nonenhanced portion of the examination. On postcontrast imaging, bilateral ureteral jets are observed. There is mild right bladder base wall thickening, see schmidt images. GASTROINTESTINAL TRACT: Small hiatal hernia. Underdistended stomach. Nonobstructive bowel pattern. Appendix not seen with certainty. Decompressed ascending, transverse and sigmoid colon. ABDOMINAL WALL: Partial visualization bilateral fat filled inguinal hernias. LYMPH NODES: No pathologic lymphadenopathy. VASCULAR: The aorta is nonaneurysmal. Mesenteric arteries are patent. There is significant narrowing of the distal aorta and iliac arteries due to heavy atherosclerotic calcifications. Total occlusion versus extremely slow flow distal abdominal aorta just prior to the bifurcation. Thereafter, flow is identified within the heavily calcified, and external iliac arteries, likely reconstitution via pelvic collateralization. PELVIC VISCERA: Uterus is surgically absent. Phleboliths. OSSEUS STRUCTURES: L5-S1 disc disease. CT/CT urogram IMPRESSION: Focal right inferior bladder wall thickening. Correlate with previous site of bladder cancer, residual or recurrent disease not excluded. 4 mm right midpole nonobstructing calculus. Mild right hydronephrosis. Dense atherosclerotic calcifications with distal aortic occlusion, with reconstituted common iliac arteries. Enlarged fatty liver. Cholelithiasis without other CT evidence of acute cholecystitis.
[2022-12-05] MEDS: iohexoL 350 MG/ML 100 ML INFUS..BTL IV (09:49)
[2022-12-06 08:19] LABS: GFR POC 60
== END 2022-12-05 08:36 | disposition home or self-care (01) ==
LOC: HO.CT 08:35
PROVIDERS: PCP Internal Medicine; Visit Provider Urology
DX: R31.0 Gross hematuria (principal)
CPT/HCPCS: 74178; 82565; Q9967

== ENCOUNTER 2022-12-11 06:01 | Day surgery (SDC) | payer MEDICARE, OTHER, SELFPAY ==
[2022-12-07 12:01] VITALS: BMI 24.1
--- NOTE | 2022-12-10 10:39 | P.CONAN_ITS ---
Documented by User: Mae Monroy NP 12/10/22 10:40 HPI - Anesthesia Eval Consult details Narrative: 67yo F for Cystoscopy & Bladder Biopsy possible TUR Bladder Tumor PMFSH Active Problems Active Problems: All Active Problems (Updated 11/08/22 @ 17:28 by David Siu MD) Lipid disorder (Acute) Difficulty sleeping (Acute) Dysuria (Acute) UTI (urinary tract infection) (Acute) Lipid disorder (Acute) Degenerative joint disease (DJD) of lumbar spine (Acute) Recurrent UTI (Acute) Recurrent UTI (Acute) Bladder cancer (Acute) Abdominal pain (Acute) Encounter for general adult medical examination with abnormal findings (Acute) Encounter for routine gynecological examination (Acute) Breast screening (Acute) Left lumbar radiculitis (Acute) Anxiety, generalized (Acute) Fecal incontinence (Acute) Gross hematuria (Acute) Renal calculi (Acute) History of bladder cancer (Acute) Diabetes 1.5, managed as type 2 (Acute) Past Medical History Medical History Anxiety Arthritis Bruit (arterial) Diabetes 1.5, managed as type 2 Endometriosis Family history of colon cancer in father Family history of throat cancer Fatty liver History of bladder cancer Hx of lipoma Hyperlipidemia Renal calculi Family History Family History Father Throat cancer Mother CVD (cardiovascular disease) Heart disease Kidney disease Sister Metastatic cancer Maternal Grandmother No problems noted. Maternal Grandfather No problems noted. Paternal Grandfather No problems noted. Paternal Grandmother No problems noted. Sister No problems noted. Sister No problems noted. Son No problems noted. Daughter No problems noted. Daughter Substance use disorder Surgical History Surgical History History of biopsy History of bladder surgery History of colonoscopy History of eye surgery History of hysterectomy History of laryngoscopy History of Problems with Anesthesia: No Social History Social History Housing: House Alcohol intake: never Patient Tobacco Use Status: Current everyday Tobacco user Tobacco use type: Cigarette Cigarette Packs Per Day: 0.5 Cigarettes Per Day: 10 e-Cigarette/Vaping Use: Never Used Second Hand Smoke Exposure: Yes Use of substances other than those prescribed or required for medical reasons: No Are you DNR?: No Advance Directives: No Advance Directives Information Provided: Yes service: No Current occupational status: retired Cognitive needs: No Hearing needs: No Vision needs: Yes Meds Allergies Allergy/AdvReac Type Severity Reaction Status Date / Time levofloxacin [From LEVAQUIN] Allergy Intermediate RED LINE Verified 12/11/22 06:20 UP ARM FROM IV SITE, redness, itching, swelling barium sulfate AdvReac Intermediate agitation Verified 12/11/22 06:20 [email or web address] AdvReac Intermediate agitation Verified 12/11/22 06:20 Home Medications Medication Instructions Recorded Confirmed Last Taken Type brimonidine 0.2 % eye drops 1 drp ophthalmic (eye) BID 07/12/20 12/11/22 03/13/22 History cholecalciferol (vitamin D3) 25 25 mcg PO DAILY 07/12/20 12/11/22 03/07/22 History mcg (1,000 unit) tablet multivitamin (Daily Multi-Vitamin 1 tab PO DAILY 07/12/20 12/11/22 03/07/22 History tablet) aspirin 81 mg tablet,delayed 81 mg PO DAILY 11/29/20 12/11/22 12/04/22 History release (Adult Aspirin Regimen) bimatoprost 0.01 % eye drops 1 drp ophthalmic (eye) BEDTIME 12/06/20 12/11/22 03/13/22 History dorzolamide 2 % eye drops 1 drp ophthalmic (eye) DAILY 06/14/21 12/11/22 03/13/22 History Exam Exam Date and Time: December 10, 2022 103 Height,Weight and Vital Signs: Height 5 ft 5 in Weight 65.771 kg Pertinent Lab Results Pertinent Lab Results: Laboratory Tests 10/14/22 10/14/22 19:06 19:06 WBC 18.6 H Hgb 13.2 Hct 39.9 Plt Count 197 Sodium 142 Potassium 4.9 Chloride 109 H Carbon Dioxide 25 BUN 15 Creatinine 0.83 Assessment and Plan Assessment Anesthesia Assessment: Chart Reviewed Final Anesthetic Review History of Problems with Anesthesia: No Documented by User: Mindy Gill MD 12/11/22 07:58 PMFSH Past Medical History Medical History Anxiety Arthritis Bruit (arterial) Diabetes 1.5, managed as type 2 Endometriosis Family history of colon cancer in father Family history of throat cancer Fatty liver History of bladder cancer Hx of lipoma Hyperlipidemia Renal calculi Family History Family History Father Throat cancer Mother CVD (cardiovascular disease) Heart disease Kidney disease Sister Metastatic cancer Maternal Grandmother No problems noted. Maternal Grandfather No problems noted. Paternal Grandfather No problems noted. Paternal Grandmother No problems noted. Sister No problems noted. Sister No problems noted. Son No problems noted. Daughter No problems noted. Daughter Substance use disorder Surgical History Surgical History History of biopsy History of bladder surgery History of colonoscopy History of eye surgery History of hysterectomy History of laryngoscopy Social History Social History Housing: House Alcohol intake: never Patient Tobacco Use Status: Current everyday Tobacco user Tobacco use type: Cigarette Cigarette Packs Per Day: 0.5 Cigarettes Per Day: 10 e-Cigarette/Vaping Use: Never Used Second Hand Smoke Exposure: Yes Use of substances other than those prescribed or required for medical reasons: No Are you DNR?: No Advance Directives: No Advance Directives Information Provided: Yes service: No Current occupational status: retired Cognitive needs: No Hearing needs: No Vision needs: Yes Meds Allergies Allergy/AdvReac Type Severity Reaction Status Date / Time levofloxacin [From LEVAQUIN] Allergy Intermediate RED LINE Verified 12/11/22 06:20 UP ARM FROM IV SITE, redness, itching, swelling barium sulfate AdvReac Intermediate agitation Verified 12/11/22 06:20 [email or web address] AdvReac Intermediate agitation Verified 12/11/22 06:20 Home Medications Medication Instructions Recorded Confirmed Last Taken Type brimonidine 0.2 % eye drops 1 drp ophthalmic (eye) BID 07/12/20 12/11/22 03/13/22 History cholecalciferol (vitamin D3) 25 25 mcg PO DAILY 07/12/20 12/11/22 03/07/22 H istory mcg (1,000 unit) tablet multivitamin (Daily Multi-Vitamin 1 tab PO DAILY 07/12/20 12/11/22 03/07/22 History tablet) aspirin 81 mg tablet,delayed 81 mg PO DAILY 11/29/20 12/11/22 12/04/22 History release (Adult Aspirin Regimen) bimatoprost 0.01 % eye drops 1 drp ophthalmic (eye) BEDTIME 12/06/20 12/11/22 03/13/22 History dorzolamide 2 % eye drops 1 drp ophthalmic (eye) DAILY 06/14/21 12/11/22 03/13/22 History Exam Airway Mallampati Class: II (edentulous) Neck ROM: Full Denture: Upper and Lower Loose/Missing/Broken Teeth: Yes, Upper and Lower Heart: RRR Lungs: CTA Assessment and Plan Assessment Anesthesia Assessment: Anesthesia Plan Discussed Final Anesthetic Review NPO: Yes ASA Class: III Final Preanesthetic Review: Meds/Allgs Chart Reviewed, Consent Obtained/Reviewed and Anes Risks/Benef Reviewed Patient Risk: Intermediate Procedure Risk: Low Anesthetic Plan Anesthetic Plan: GA Disposition: Standard PACU
[2022-12-11] VITALS (7 sets, daily range): BP systolic 113–152; BP diastolic 65–79; PULSE 74–91; RESP 15–18; TEMP 36.3–36.9; O2SAT 96–100
[2022-12-11 07:13] LABS: Glucose, Whole Blood 126 mg/dL (60-115)
[2022-12-11] MEDS: Lactated Ringers 1,000 ML 100 ML IVCONT (07:22)
[2022-12-11 08:33] LABS: Urine Cytology See Pathology rpt
--- NOTE | 2022-12-11 08:43 | P.OP_ITS ---
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 Presented for urology evaluation for recurrent hematuria. Details of procedure: The patient was brought into the operating room placed on the OR table in supine position. 2 g of Ancef IV. General anesthesia was administered. The patient was repositioned into lithotomy position, prepped and draped in the usual sterile fashion. Time-out was done per protocol. A 22 fr cystoscope was placed transurethrally into the bladder. Irine sent for cytology. The trigone was dependent due to mild cystocele. The right and left ureteral orifices were visualized. The entire bladder was visualized. Prominent vascular markings noted, and mild trabeculations, scar noted left lateral wall. There were no suspicious bladder lesions seen. Bladder biopsies were taken from the posterior wall, right lateral wall, dome and multiple biopsies left lateral wall. The bugbee electrode was used to obtain adequate hemostasis. The cystoscope was removed. 2% lidocaine urojet was passed transu rethrally into the bladder. The patient was brought out of anesthesia and taken to recovery in stable condition. Complications: None Drains: none
[2022-12-11] MEDS: Phenazopyridine HCL 100 MG TABLET 200 MG PO (09:01)
[2022-12-11] MEDS: Acetaminophen 325 MG TABLET 650 MG PO (09:05)
[2022-12-11] MEDS: oxyCODONE HCl Immed Release 5 MG TABLET PO (09:05)
--- NOTE | 2022-12-11 09:11 | MHC.SHP ---
Pre-Procedural Eval Section A Date of Service: 12/11/22 The patient is an INPATIENT: No The History & Physical has been completed within 30 days and I have reviewed it.: No Section B Chief Complaint: Gross hematuria Details of Present Illness: 67 year old female with h/o bladder cancer diagnosed 10/1999, pathology grade III/III papillary with sarcomatoid features invasive into lamina propria, with acute onset gross hematuria. CT urogram kidneys wnL, bladder wall thickening. Relevant Family History (Specify if Yes): No Allergies: Allergies Allergy/AdvReac Type Severity Reaction Status Date / Time levofloxacin [From LEVAQUIN] Allergy Intermediate RED LINE Verified 12/11/22 06:20 UP ARM FROM IV SITE, redness, itching, swelling barium sulfate AdvReac Intermediate agitation Verified 12/11/22 06:20 [email or web address] AdvReac Intermediate agitation Verified 12/11/22 06:20 Review of Systems Review of Systems Comment: 10 point ROS negative other than stated in HPI Exam Surgical H&P Exam: Normal: HEENT, Normal: Heart, Normal: Lungs and Normal: Neurological Plan Diagnosis/Plan: Unchanged I have reviewed the history and physical and performed a pertinent physical examination on my patient. No changes have occurred unless specified. Cystoscopy. Bladder biopsies/TUR. Discussed risks to include but not limited to, blood in the urine, burning with urination, urgency. Time Spent With Patient Time: Total time managing care of this patient today ____ minutes.
== END 2022-12-11 10:00 | disposition home or self-care (01) ==
PROVIDERS: PCP Internal Medicine; Visit Provider Urology
PROC: (CPT 52204; principal; 2022-12-11 07:30)
DX: R31.0 Gross hematuria (principal); N81.10 Cystocele, unspecified; E13.9 Other specified diabetes mellitus without complications; Z85.51 Personal history of malignant neoplasm of bladder; Z88.1 Allergy status to other antibiotic agents
CPT/HCPCS: 52204; 82947; 88112; 88121; 88305; J0690; J2250; J2370; J2371; J2405; J3010

== ENCOUNTER → 2022-12-11 06:01 | Outpatient (BNV) | payer MEDICARE, OTHER, SELFPAY | PROVIDERS: PCP Internal Medicine; Visit Provider Urology | DX: R31.0 Gross hematuria (principal); Z85.51 Personal history of malignant neoplasm of bladder | CPT/HCPCS: 52204 ==

== ENCOUNTER 2023-01-03 08:02 | Outpatient (AMB) | payer MEDICARE, OTHER, SELFPAY ==
--- NOTE | 2023-01-03 07:16 | MHC.OFFVIS ---
Intake Intake Visit Reasons: bx results Intake Note: Patient presents today for a follow-up on Biopsy Results: Meds- Pyridium (patient completed course of treatment) Allergies to Antibiotic- Levofloxacin Blood Thinner- Aspirins Silk Screen Repairer Required: No Accompanied by: Self / Same As Patient Allergies levofloxacin [From LEVAQUIN] Allergy (Intermediate, Verified 01/03/23 08:04) RED LINE UP ARM FROM IV SITE, redness, itching, swelling barium sulfate Adverse Reaction (Intermediate, Verified 01/03/23 08:04) agitation varenicline Adverse Reaction (Intermediate, Verified 01/03/23 08:04) agitation HPI HPI Comments History of Present Illness Details 01/03/2023? 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 She originally presented due to gross hematuria. She was last seen in the office on 11/08/22. She is here today for follow up Cystoscopy results which was done on 12/11/2022, which were benign. She has had CAT scan of the kidney in the past which showed kidney stones. she reports that she gets recurrent UTIs usually treated with Bactrim, however, they seem to be coming back. She reports that she had abnormal bowel movements in 06/2022, with associated UTI. Discussed today included her concerns regarding recurrent UTIS. She has external hemorrhoid. She states she has been increasing viglent on trying to have better hygiene. Did discuss that causes for recurrent UTIs can include constipation, diarrhea, or fecal leakage Evaluation: UA - leuk neg/blood negative Plan: Will monitor right kidney stones. Discussed CT imaging findings c/w renal cysts meets criteria of simple benign cysts Follow up in 3 months for repeat cystoscopy. FOR[facility]LY [facility], [facility] Medical History Anxiety Arthritis Bruit (arterial) Diabetes 1.5, managed as type 2 Endometriosis Family history of colon cancer in father Family history of throat cancer Fatty liver History of bladder cancer Hx of lipoma Hyperlipidemia Renal calculi Surgical History History of biopsy History of bladder surgery History of colonoscopy History of eye surgery History of hysterectomy History of laryngoscopy Family History Father Throat cancer Mother CVD (cardiovascular disease) Heart disease Kidney disease Sister Metastatic cancer Maternal Grandmother No problems noted. Maternal Grandfather No problems noted. Paternal Grandfather No problems noted. Paternal Grandmother No problems noted. Sister No problems noted. Sister No problems noted. Son No problems noted. Daughter No problems noted. Daughter Substance use disorder Social History Housing: House Alcohol intake: never Patient Tobacco Use Status: Current everyday Tobacco user Tobacco use type: Cigarette Cigarette Packs Per Day: 0.5 Cigarettes Per Day: 10 e-Cigarette/Vaping Use: Never Used Second Hand Smoke Exposure: Yes service: No Current occupational status: retired Cognitive needs: No Hearing needs: No Vision needs: Yes Review of Systems Const All systems reviewed & are unremarkable except as noted in HPI and below Reports no additional complaints Eyes Reports no additional complaints ENT Reports no additional complaints Card Denies dyspnea Resp Denies cough and Denies dyspnea GI Reports no additional complaints Reports no additional complaints Musc Reports no additional complaints Skin/Breast Denies rash and Denies unusual bruising Neuro Reports no additional complaints Psych Reports no additional complaints Endo Reports no additional complaints Cristian/Lymph Reports no additional complaints Aller/Immun Reports no additional complaints Physical Exam Const General: cooperative, healthy appearing and no acute distress Orientation/consciousness: patient oriented x3 HEENT Head: Yes normal to inspection, Yes normocephalic and Yes atraumatic Eyes Conjunctivae: conjunctivae normal Neck Neck: Yes normal visual inspection and Yes trachea midline Chest Chest palpation & inspection: normal inspection of the chest Resp Effort & Inspection: normal respiratory effort Cardio Rate: regular rate GI Inspection: Yes normal to inspection Skin General skin exam: no rashes or lesions noted Neuro General: patient oriented x3 Extrem General: No edema Psych Appearance: grossly normal Results AMB Urinalysis, Automated UA Leukoctes 0 Aubrey/uL Last Edit by Gerry Alonso on 01/03/23 08:21 UA Nitrite Last Edit by eGrry Alonso on 01/03/23 08:21 UA Urobilinogen 0.2 mg/dL Last Edit by Gerry Alonso on 01/03/23 08:21 UA Protein 0 mg/dL Last Edit by Gerry Alonso on 01/03/23 08:21 UA pH 6.0 Last Edit by Gerry Alonso on 01/03/23 08:21 UA Blood 0 Blaine/uL Last Edit by Gerry Alonso on 01/03/23 08:21 UA Specific [place] 1.010 Last Edit by Gerry Alonso on 01/03/23 08:21 UA Ketone Negative Last Edit by Gerry Alonso on 01/03/23 08:21 UA Bilirubin 0 mg/dL Last Edit by Gerry Alonso on 01/03/23 08:21 UA Glucose 0 mg/dL Last Edit by Gerry Alonso on 01/03/23 08:21 Results Reviewed Results Reviewed: Laboratory Last Values Urine pH (Auto) 6.0 01/03/23 08:05 Specific [place] (Auto) 1.010 01/03/23 08:05 Urine Protein (Auto) 0 mg/dL 01/03/23 08:05 Glucose (UA)(Auto) 0 mg/dL 01/03/23 08:05 Urine Ketones (Auto) Negative 01/03/23 08:05 Urine Blood (Auto) 0 Blaine/uL 01/03/23 08:05 Urine Bilirubin (Auto) 0 mg/dL 01/03/23 08:05 Urine Urobilinogen (Auto) 0.2 mg/dL 01/03/23 08:05 Leukocyte Esterase (Auto) 0 Aubrey/uL 01/03/23 08:05 A.? Bladder, posterior wall, biopsy:? Benign urothelial mucosa and muscularis propria; negative for malignancy. B.? Bladder, left lateral wall, biopsy:? Benign urothelial mucosa and muscularis propria; negative for malignancy. C.? Bladder, right lateral wall, biopsy:? Benign urothelial mucosa and muscularis propria; negative for malignancy. D.? Bladder, dome, biopsy:? Benign urothelial mucosa and muscularis propria; negative for malignancy Clinical History Pre-Op Dx:? Gross hematuria Post-Op Dx: Same, h/o bladder cancer Microscopic Description Microscopic sections reviewed. Material Received A. Posterior wall bladder bx B. Left lateral wall bladder, bx C. Right lateral wall bladder bx D. Dome Gross Description Received in 4 parts. Part A:? Received in formalin labeled ?posterior wall bladder bx? is a 0.3 cm in greatest dimension hyperemic and congested, talamantes-pink irregular tissue fragment which is submitted in toto in a single cassette labeled A.? Part B:? Received in formalin labeled ?left lateral wall bladder bx? are 4 glistening, semitranslucent, soft, talamantes-pink irregular tissue fragments ranging from 0.2-0.35 cm in greatest dimension which are submitted toto in a labeled B. Part C:? Received in formalin labeled ?right lateral wall bladder bx? is a 0.25 cm in greatest dimension glistening, hyperemic and congested, pink-red irregular tissue fragment which submitted in toto in a single cassette labeled C.? Part D:? Received in formalin labeled ?dome? is a 0.25 cm in greatest dimension glistening, semitranslucent, talamantes-white irregular tissue fragment which is submitted in toto in a single cassette labeled D. Urine Culture Final 10/16/22 Organism 1 Escherichia coli Quant > 100,000 cfu/mL E coli M.I.C. RX --------- --- Ampicillin <=2 S Ceftriaxone <=0.25 S Gentamicin <=1 S Levofloxacin <=0.12 S Nitrofurantoin <=16 S Trimethoprim/Sulfamethoxazole <=20 S Assessment & Plan Assessment & Plan (1) Recurrent UTI: Code(s): N39.0 - Urinary tract infection, site not specified (2) History of bladder cancer: Code(s): Z85.51 - Personal history of malignant neoplasm of bladder Plan: We will monitor kidney stones. Follow up in 3 months for repeat cystoscopy. (3) Right renal stone: Code(s): N20.0 - Calculus of kidney (4) Renal cyst: Code(s): N28.1 - Cyst of kidney, acquired Plan Will monitor right kidney stones. Discussed CT imaging findings c/w renal cysts meets criteria of simple benign cysts Follow up in 3 months for repeat cystoscopy. Orders: Orders AMB Urinalysis Automated Today Z13.9 - Encounter for screening, unspecified Patient Instructions: The patient had an opportunity to ask questions regarding treatment plan. All questions were answered. Imaging, Laboratory studies and physical exam results were discussed and reviewed in detail. No major barriers to understanding were identified. The patient expressed understanding and agreement with the above treatment plan.? ? ? The patient is aware they should contact our office by phone for worsening of their current condition or the appearance of new symptoms. Compliance is encouraged with any medications and followup testing that is ordered.? ? ? It is a privilege to be allowed the opportunity to participate in the urologic care of your patient. If you have any questions or concerns regarding treatment for the above conditions please do not hesitate to contact me. The office telephone contact is [phone].? ? ? This note is constructed in part using voice recognition software. While every effort has been made to ensure accuracy ceo errors may have been included.? ? ? Yours sincerely,? ? ? David Siu MD? Coding Level of Care Code Est Pt Level 4 (95067) Diagnoses Recurrent UTI N39.0 History of bladder cancer Z85.51 Right renal stone N20.0 Renal cyst N28.1
== END 2023-01-03 08:54 | disposition home or self-care (01) ==
PROVIDERS: PCP Internal Medicine; Visit Provider Urology
DX: N39.0 Urinary tract infection, site not specified (principal); Z85.51 Personal history of malignant neoplasm of bladder; N20.0 Calculus of kidney; N28.1 Cyst of kidney, acquired
CPT/HCPCS: 99214

== ENCOUNTER → 2023-01-03 08:02 | Outpatient (BNVA) | payer MEDICARE, OTHER, SELFPAY | PROVIDERS: PCP Internal Medicine; Visit Provider Urology | DX: Z85.51 Personal history of malignant neoplasm of bladder (principal); N20.0 Calculus of kidney; N28.1 Cyst of kidney, acquired; N39.0 Urinary tract infection, site not specified; Z98.890 Other specified postprocedural states | CPT/HCPCS: 99212 ==

== ENCOUNTER 2023-01-18 08:09 | Outpatient (AMB) | payer MEDICARE, OTHER, SELFPAY ==
--- NOTE | 2023-01-18 08:28 | AM.OFFWIN_ITS ---
Intake Vital Signs 01/18/23 08:29 BP 120/80 Blood Pressure Location Rt brachial Position Sitting Pulse 90 Pulse Source Pulse Oximeter Pulse Oximetry (%) 98 Oxygen Delivery Method Room Air Intake Visit Reasons: EP ?UTI Intake Note: Patient here for frequent urination, difficulty emptying bladder which has been an on going issue for a few months. Patient Tobacco Use Status: Current everyday Tobacco user Allergies levofloxacin [From LEVAQUIN] Allergy (Intermediate, Verified 01/18/23 08:28) RED LINE UP ARM FROM IV SITE, redness, itching, swelling barium sulfate Adverse Reaction (Intermediate, Verified 01/18/23 08:28) agitation varenicline Adverse Reaction (Intermediate, Verified 01/18/23 08:28) agitation Do you need a note to return to daycare/school/sports/work: No HPI HPI Comments History of Present Illness Details This is a 67-year-old female who presents to the office today for sick visit. Patient complaining of increased urinary frequency/urgency and pressure with urination x1 week. Patient reports a history recurrent UTIs in the past 6 months. She had a recent cystoscopy with biopsies with her urologist, which was normal without acute findings. She denies any fevers or chills. She denies any nausea/vomiting. She denies any back/flank pain. [facility] Medical History Anxiety Arthritis Bruit (arterial) Diabetes 1.5, managed as type 2 Endometriosis Family history of colon cancer in father Family history of throat cancer Fatty liver History of bladder cancer Hx of lipoma Hyperlipidemia Renal calculi Surgical History History of biopsy History of bladder surgery History of colonoscopy History of eye surgery History of hysterectomy History of laryngoscopy Family History Father Throat cancer Mother CVD (cardiovascular disease) Heart disease Kidney disease Sister Metastatic cancer Maternal Grandmother No problems noted. Maternal Grandfather No problems noted. Paternal Grandfather No problems noted. Paternal Grandmother No problems noted. Sister No problems noted. Sister No problems noted. Son No problems noted. Daughter No problems noted. Daughter Substance use disorder Social History Housing: House Alcohol intake: never Patient Tobacco Use Status: Current everyday Tobacco user Tobacco use type: Cigarette Cigarette Packs Per Day: 0.5 Cigarettes Per Day: 10 e-Cigarette/Vaping Use: Never Used Second Hand Smoke Exposure: Yes service: No Current occupational status: retired Cognitive needs: No Hearing needs: No Vision needs: Yes Review of Systems Const All systems reviewed & are unremarkable except as noted in HPI and below Reports no additional complaints Eyes Reports no additional complaints ENT Reports no additional complaints Card Reports no additional complaints Resp Reports no additional complaints GI Reports no additional complaints Reports no additional complaints Musc Reports no additional complaints Skin/Breast Reports system reviewed and no additional complaints, except as documented Neuro Reports no additional complaints Psych Reports no additional complaints Endo Reports no additional complaints Cristian/Lymph Reports no additional complaints Aller/Immun Reports no additional complaints Physical Exam Vital Signs: Last Vital Signs Pulse 90 01/18/23 08:29 BP 120/80 01/18/23 08:29 Pulse Ox 98 01/18/23 08:29 Oxygen Delivery Method Room Air 01/18/23 08:29 Const General: cooperative, healthy appearing, no acute distress and well developed Orientation/consciousness: patient oriented x3 HEENT Head: Yes normal to inspection Ears: hearing grossly normal bilaterally General nose exam: Normal external nose present Face and sinus: Yes normal facial exam Mouth: Normal oral and palatal mucosa present Eyes General: appearance normal, both eyes and all related structures Pupils: Equal, round and reactive pupils present EOM: EOMs intact bilaterally Resp Effort & Inspection: normal respiratory effort and no respiratory distress Auscultation: clear to auscultation bilaterally Cardio Rate: regular rate Rhythm: regular rhythm Heart sounds: no gallops, no murmurs and no rubs Peripheral pulses: Peripheral pulses 2+ throughout GI Inspection: No distended Palpation (GI): Soft to palpation and nontender Auscultation: normal bowel sounds Skin General skin exam: no rashes or lesions noted Neuro General: patient oriented x3 Cranial nerves: Yes CN's II-XII intact bilaterally and Yes Equal, round and reactive pupils present Gait exam (Neuro): Normal gait present Motor exam (neuro): 5/5 motor strength present throughout Extrem General: Yes normal to inspection, Yes full ROM and Yes no clubbing, cyanosis or edema Psych Appearance: grossly normal Mental Status: mental status grossly normal Results AMB Urinalysis, Automated UA Leukoctes 70 Aubrey/uL Last Edit by Brian Weller [facility] on 01/18/23 08:4 1 UA Nitrite Positive Last Edit by NandiniRoxie Weller [facility] on 01/18/23 08:41 UA Urobilinogen 0.2 mg/dL Last Edit by NandiniRoxie Weller [facility] on 01/18/23 08:41 UA Protein 0 mg/dL Last Edit by NandiniTania Weller, [facility] on 01/18/23 08:41 UA pH 6.0 [facility] on 01/18/23 08:41 UA Blood 0 Blaine/uL Last Edit by [facility] Jnaee [facility] on 01/18/23 08:41 UA Specific Warriormine 1.015 Last Edit by NandiniTania Weller [facility] on 01/18/23 08:41 UA Ketone Negative Last Edit by [facility] Janee [facility] on 01/18/23 08:41 UA Bilirubin 0 mg/dL Last Edit by NandiniTania Weller [facility] on 01/18/23 08:41 UA Glucose 0 mg/dL [facility] on 01/18/23 08:41 Results Reviewed Results Reviewed: Laboratory Last Values Urine pH (Auto) 6.0 01/18/23 08:39 Specific Warriormine (Auto) 1.015 01/18/23 08:39 Urine Protein (Auto) 0 mg/dL 01/18/23 08:39 Glucose (UA)(Auto) 0 mg/dL 01/18/23 08:39 Urine Ketones (Auto) Negative 01/18/23 08:39 Urine Blood (Auto) 0 Blaine/uL 01/18/23 08:39 Urine Nitrite (Auto) Positive 01/18/23 08:39 Urine Bilirubin (Auto) 0 mg/dL 01/18/23 08:39 Urine Urobilinogen (Auto) 0.2 mg/dL 01/18/23 08:39 Leukocyte Esterase (Auto) 70 Aubrey/uL 01/18/23 08:39 Assessment & Plan Assessment & Plan (1) UTI (urinary tract infection): Code(s): N39.0 - Urinary tract infection, site not specified Plan Patient presenting with signs and symptoms most consistent with a urinary tract infection. Urinalysis shows positive nitrites and leukocyte esterase. Prior urine cultures have grown pansensitive E coli. No fever/chills, nausea/vomiting, or CVA tenderness to suggest pyelonephritis or systemic infection. Patient's vital signs are stable and her physical exam is benign. Patient is safe for discharge home. She was sent home on p.o. cefuroxime 500 mg twice daily x7 days and PO pyridium 3 times daily as needed x3 days. Patient advised to follow-up here or go directly to the emergency room if she were to develop fever/chills, nausea/vomiting, or back/flank pain. She verbalizes her understanding and she is in agreement with the plan. Orders: Orders AMB Urinalysis Automated Today Z13.9 - Encounter for screening, unspecified Medications: New cefuroxime axetil 500 mg PO BID 14 tabs 0RF phenazopyridine 200 mg PO TID PRN 9 tabs 0RF pain Coding Level of Care Code Est Pt Level 3 (20245) Diagnoses UTI (urinary tract infection) N39.0
[2023-01-18 08:29] VITALS: BP 120/80; PULSE 90; O2SAT 98
== END 2023-01-18 09:24 | disposition home or self-care (01) ==
PROVIDERS: PCP Internal Medicine; Visit Provider Physician Assistant Medical
DX: N39.0 Urinary tract infection, site not specified (principal); R35.0 Frequency of micturition
CPT/HCPCS: 81003; 99213

== ENCOUNTER 2023-01-30 09:14 | Outpatient (AMB) | payer MEDICARE, OTHER, SELFPAY ==
[2023-01-30 09:18] VITALS: BP 130/66; PULSE 87; O2SAT 98; BMI 24.3
--- NOTE | 2023-01-30 09:18 | A.OFFPC_ITS ---
Vital Signs 01/30/23 09:18 Height 5 ft 5 in Weight 146 lb 2 oz BMI 24.3 BP 130/66 Blood Pressure Location Rt brachial Position Sitting Pulse 87 Pulse Source Pulse Oximeter Pulse Oximetry (%) 98 Oxygen Delivery Method Room Air Intake Visit Reasons: 4m follow up Allergies levofloxacin [From LEVAQUIN] Allergy (Intermediate, Verified 01/30/23 09:22) RED LINE UP ARM FROM IV SITE, redness, itching, swelling barium sulfate Adverse Reaction (Intermediate, Verified 01/30/23 09:22) agitation varenicline Adverse Reaction (Intermediate, Verified 01/30/23 09:22) agitation Medication List - Last Reconciled 01/30/23 by Maciel Cardona MD aspirin (Adult Aspirin Regimen) 81 mg PO DAILY bimatoprost 0.01% 1 drp ophthalmic (eye) BEDTIME brimonidine 0.2% 1 drp ophthalmic (eye) BID cholecalciferol (vitamin D3) 25 mcg PO DAILY dorzolamide 2% 1 drp ophthalmic (eye) DAILY fenofibrate 160 mg PO DAILY 90 days Lacto no.86-Ggcboy-XON-larch 25B cell-25B cell-50 mg caps PO lorazepam 0.5 mg PO DAILY PRN 30 days metformin 500 mg PO BID 90 days oxycodone 5 mg PO ONCE PRN 10 days simvastatin 40 mg PO DAILY 90 days Tobacco use date assessed: 01/30/23 Fall risk assessment: No Falls in past year Last assessed Fall Risk: 01/30/23 Dental Screening Dental Screen Date: 01/30/23 Did you have a dental visit in the last 12 months?: No Did you have a dental problem in the last 6 months where you did not have access to dental care?: No Was dental information given to patient?: No HPI 4m follow up HPI Details Patient is 67-year-old female came in today for her regular 3 month follow-up appointment Urology consultation dated 01/03/2023 reviewed 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 She also have history of renal calculi She will continue to have follow-up appointment with Urology for recurrent UTIs Lipid disorder: she is on simvastatin to 40 mg tolerating medication due for labs in March External hemorrhoids: Patient continued to have off and on loose stools we talked about personal hygiene with water I would recommend that she start cleaning herself with the water rather than sent tissue paper. That might help with recurrent UTIs as well.. Diabetes mellitus hemoglobin A1c is stable , patient is on metformin 500 mg b.i.d. and has been taking that for a while. She does not think that is causing diarrhea Bp is stable Anxiety/depression patient is suffering from a lot of domestic stress at this time some of the family members are using medications that you are not supposed to She usually gets 30 tablets of lorazepam every 3 months I have increased the dose to 45 tablets every 3 months. She also have a chronic back pain lumbar radiculitis radiating to left leg, I have sent oxycodone few tablets patient take only half a tablet if she is having a flare up. Follow-up 3 months [facility] Medical History Anxiety Arthritis Bruit (arterial) Diabetes 1.5, managed as type 2 Endometriosis Family history of colon cancer in father Family history of throat cancer Fatty liver History of bladder cancer Hx of lipoma Hyperlipidemia Renal calculi Surgical History History of biopsy History of bladder surgery History of colonoscopy History of eye surgery History of hysterectomy History of laryngoscopy Family History Father Throat cancer Mother CVD (cardiovascular disease) Heart disease Kidney disease Sister Metastatic cancer Maternal Grandmother No problems noted. Maternal Grandfather No problems noted. Paternal Grandfather No problems noted. Paternal Grandmother No problems noted. Sister No problems noted. Sister No problems noted. Son No problems noted. Daughter No problems noted. Daughter Substance use disorder Social History Housing: House Alcohol intake: never Patient Tobacco Use Status: Current everyday Tobacco user Tobacco use type: Cigarette Cigarette Packs Per Day: 0.5 Cigarettes Per Day: 10 e-Cigarette/Vaping Use: Never Used Second Hand Smoke Exposure: Yes service: No Current occupational status: retired Cognitive needs: No Hearing needs: No Vision needs: Yes Questionnaire PHQ-9 Over the last 2 weeks, how often have you been bothered by any of the following problems? 1. Little interest or pleasure in doing things: several days 2. Feeling down, depressed, or hopeless: not at all 3. Trouble falling or staying asleep, or sleeping too much: not at all 4. Feeling tired or having little energy: not at all 5. Poor appetite or overeating: not at all 6. Feeling bad about yourself - or that you are a failure or have let yourself or your family down: not at all 7. Trouble concentrating on things, such as reading the newspaper or watching television: not at all 8. Moving or speaking so slowly that other people could have noticed. Or the opposite - being so fidgety or restless that you have been moving around a lot more than usual: not at all 9. Thoughts that you would be better off or of hurting yourself in some way: not at all Total score: 1 Depression Screening Interpretation: Negative 43091 - PHQ-9 Billing: Yes Source: Developed by Drs. Jian Contreras, Florina Almanzar, Lionel Subramanian and colleagues, with an educational hipolito from [email or web address]. Thrive Questionnaire Date Thrive assessed: 06/14/21 HARSHIL-7 AMB Questionnaire HARSHIL-7 Date HARSHIL - 7 assessed: 06/14/21 Source: Developed by Drs. Jian Contreras, Florina Almanzar, Lionel Subramanian and colleagues, with an educational hipolito from [email or web address]. Review of Systems Const Denies chills and Denies fever(s) ENT Denies epistaxis and Denies nasal discharge Card Denies chest pain Resp Denies chest congestion, Denies cough and Denies hemoptysis GI Denies diarrhea and Denies nausea Skin/Breast Denies rash Neuro Reports no additional complaints Psych Reports no additional complaints Endo Reports no additional complaints Physical exam (Primary Care) Vital Signs: Last Vital Signs Pulse 87 01/30/23 09:18 BP 130/66 01/30/23 09:18 Pulse Ox 98 01/30/23 09:18 Oxygen Delivery Method Room Air 01/30/23 09:18 BMI result Body Mass Index 24.3 Tobacco/Smoking Status: Tobacco use Status Tobacco use date assessed 01/30/23 01/30/23 09:22 Patient Tobacco Use Status Current everyday Tobacco 01/30/23 09:22 Tobacco use type Cigarette 01/30/23 09:22 e-Cigarette/Vaping Use Never Used 01/30/23 09:22 Depression Screening Interpretation: Negative Thrive Assessment: Date of Thrive Assessment Date Thrive assessed 06/14/21 01/30/23 09:22 Const General: cooperative, comfortable and no acute distress Orientation/consciousness: patient oriented x3 HENMT Head: Yes normocephalic Eyes General: appearance normal, both eyes and all related structures Neck Neck: Yes supple Resp Effort & Inspection: normal respiratory effort, no cough and no stridor Cardio Rhythm: regular rhythm Heart sounds: S1 normal heart sound present and S2 normal heart sound present Skin General skin exam: turgor normal Neuro General: patient oriented x3, tone normal and moves all extremities Extrem Right lower extremity: no edema Left lower extremity: no edema Assessment and Plan Assessment & Plan (1) Diabetes 1.5, managed as type 2: Code(s): E13.9 - Other specified diabetes mellitus without complications (2) Anxiety, generalized: Code(s): F41.1 - Generalized anxiety disorder (3) Left lumbar radiculitis: Code(s): M54.16 - Radiculopathy, lumbar region (4) Bladder cancer: Code(s): C67.9 - Malignant neoplasm of bladder, unspecified (5) Lipid disorder: Code(s): E78.9 - Disorder of lipoprotein metabolism, unspecified (6) Difficulty sleeping: Code(s): G47.9 - Sleep disorder, unspecified (7) Degenerative joint disease (DJD) of lumbar spine: Code(s): M47.816 - Spondylosis without myelopathy or radiculopathy, lumbar region (8) External hemorrhoid: Code(s): K64.4 - Residual hemorrhoidal skin tags (9) Recurrent UTI: Code(s): N39.0 - Urinary tract infection, site not specified Plan Patient is 67-year-old female came in today for her regular 3 month follow-up appointment Urology consultation dated 01/03/2023 reviewed 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 She also have history of renal calculi She will continue to have follow-up appointment with Urology for recurrent UTIs Lipid disorder: she is on simvastatin to 40 mg tolerating medication due for labs in March External hemorrhoids: Patient continued to have off and on loose stools we talked about personal hygiene with water I would recommend that she start cleaning herself with the water rather than sent tissue paper. That might help with recurrent UTIs as well.. Diabetes mellitus hemoglobin A1c is stable , patient is on metformin 500 mg b.i.d. and has been taking that for a while. She does not think that is causing diarrhea Bp is stable Anxiety/depression patient is suffering from a lot of domestic stress at this time some of the family members are using medications that you are not supposed to She usually gets 30 tablets of lorazepam every 3 months I have increased the dose to 45 tablets every 3 months. She also have a chronic back pain lumbar radiculitis radiating to left leg, I have sent oxycodone few tablets patient take only half a tablet if she is having a flare up. Follow-up 3 months Orders: Orders Comprehensive Met. Panel Today C67.9 - Malignant neoplasm of bladder, unspecified, E13.9 - Other specified diabetes mellitus without complications, E78.9 - Disorder of lipoprotein metabolism, unspecified, F41.1 - Generalized anxiety disorder, G47.9 - Sleep disorder, unspecified, M47.816 - Spondylosis without myelopathy or radiculopathy, lumbar region, M54.16 - Radiculopathy, lumbar region Hemoglobin A1c Today C67.9 - Malignant neoplasm of bladder, unspecified, E13.9 - Other specified diabetes mellitus without complications, E78.9 - Disorder of lipoprotein metabolism, unspecified, F41.1 - Generalized anxiety disorder, G47.9 - Sleep disorder, unspecified, M47.816 - Spondylosis without myelopathy or radiculopathy, lumbar region, M54.16 - Radiculopathy, lumbar region LDL Cholesterol Direct Today C67.9 - Malignant neoplasm of bladder, unspecified, E13.9 - Other specified diabetes mellitus without complications, E78.9 - Disorder of lipoprotein metabolism, unspecified, F41.1 - Generalized anxiety disorder, G47.9 - Sleep disorder, unspecified, M47.816 - Spondylosis without myelopathy or radiculopathy, lumbar region, M54.16 - Radiculopathy, lumbar region Microalbumin, Random (w Creat) Today C67.9 - Malignant neoplasm of bladder, unspecified, E13.9 - Other specified diabetes mellitus without complications, E78.9 - Disorder of lipoprotein metabolism, unspecified, F41.1 - Generalized anxiety disorder, G47.9 - Sleep disorder, unspecified, M47.816 - Spondylosis without myelopathy or radiculopathy, lumbar region, M54.16 - Radiculopathy, lumbar region Complete Blood Count Auto Diff Today C67.9 - Malignant neoplasm of bladder, unspecified, E13.9 - Other specified diabetes mellitus without complications, E78.9 - Disorder of lipoprotein metabolism, unspecified, F41.1 - Generalized anxiety disorder, G47.9 - Sleep disorder, unspecified, M47.816 - Spondylosis without myelopathy or radiculopathy, lumbar region, M54.16 - Radiculopathy, lumbar region Medications: Changed From lorazepam 0.5 mg PO DAILY 30 days PRN 30 tabs 0RF sleep G47.9 - Sleep disorder, unspecified To lorazepam 0.5 mg PO DAILY PRN 45 tabs 0RF sleep 90 days G47.9 - Sleep disorder, unspecified Refilled fenofibrate 160 mg PO DAILY 90 tabs 1RF 90 days E78.9 - Disorder of lipoprotein metabolism, unspecified metformin 500 mg PO BID 180 tabs 1RF 90 days E13.9 - Other specified diabetes mellitus without complications simvastatin 40 mg PO DAILY 90 tabs 1RF 90 days E78.9 - Disorder of lipoprotein metabolism, unspecified oxycodone 5 mg PO ONCE PRN 10 tabs 0RF pain 10 days Coding Level of Care Code Est Pt Level 4 (49080) Diagnoses Diabetes 1.5, managed as type 2 E13.9 Anxiety, generalized F41.1 Left lumbar radiculitis M54.16 Bladder cancer C67.9 Lipid disorder E78.9 Difficulty sleeping G47.9 Degenerative joint disease (DJD) of lumbar spine M47.816 External hemorrhoid K64.4 Recurrent UTI N39.0
== END 2023-01-30 10:04 | disposition home or self-care (01) ==
PROVIDERS: PCP Internal Medicine; Visit Provider Internal Medicine
DX: E13.9 Other specified diabetes mellitus without complications (principal); F41.1 Generalized anxiety disorder; M54.16 Radiculopathy, lumbar region; C67.9 Malignant neoplasm of bladder, unspecified; E78.9 Disorder of lipoprotein metabolism, unspecified; G47.9 Sleep disorder, unspecified; M47.816 Spondylosis without myelopathy or radiculopathy, lumbar region; K64.4 Residual hemorrhoidal skin tags; N39.0 Urinary tract infection, site not specified
CPT/HCPCS: 99214

== ENCOUNTER 2023-02-08 08:07 | Outpatient (AMB) | payer MEDICARE, OTHER, SELFPAY ==
--- NOTE | 2023-02-08 08:23 | AM.OFFWIN_ITS ---
Intake Vital Signs 02/08/23 08:28 Weight 145 lb BP 140/80 H Blood Pressure Location Rt brachial Position Sitting Pulse 74 Pulse Source Pulse Oximeter Pulse Oximetry (%) 98 Oxygen Delivery Method Room Air Intake Visit Reasons: EP UTI Intake Note: Patient is here for a UTI that has been progressively worsening. she was recently here in about 3 weeks and was put on antibiotics which helped but then came right back. Patient Tobacco Use Status: Current everyday Tobacco user Allergies levofloxacin [From LEVAQUIN] Allergy (Intermediate, Verified 02/08/23 08:30) RED LINE UP ARM FROM IV SITE, redness, itching, swelling barium sulfate Adverse Reaction (Intermediate, Verified 02/08/23 08:30) agitation varenicline Adverse Reaction (Intermediate, Verified 02/08/23 08:30) agitation Do you need a note to return to daycare/school/sports/work: No HPI HPI Comments History of Present Illness Details This is a 67-year-old female who presents to the office today for sick visit. Patient complaining of increased urinary frequency/urgency x4 days. Patient has been having recurrent urinary tract infections over the past several months. She was seen by Urology and had cystoscopy, which was within normal limits. She was most recently treated for a urinary tract infection on 01/21/2023 with p.o. cefuroxime 500 mg twice a day. She states her symptoms completely resolved but started to return about 4 days ago. She denies any fevers or chills. She denies any flank or back pain. She denies any hematuria. 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 Maternal Grandfather No problems noted. Paternal Grandfather No problems noted. Paternal Grandmother No problems noted. Sister No problems noted. Sister No problems noted. Son No problems noted. Daughter No problems noted. Daughter Substance use disorder Social History Housing: House Alcohol intake: never Patient Tobacco Use Status: Current everyday Tobacco user Tobacco use type: Cigarette Cigarette Packs Per Day: 0.5 Cigarettes Per Day: 10 e-Cigarette/Vaping Use: Never Used Second Hand Smoke Exposure: Yes service: No Current occupational status: retired Cognitive needs: No Hearing needs: No Vision needs: Yes Review of Systems Const All systems reviewed & are unremarkable except as noted in HPI and below Reports no additional complaints Eyes Reports no additional complaints ENT Reports no additional complaints Card Reports no additional complaints Resp Reports no additional complaints GI Reports no additional complaints Reports no additional complaints Musc Reports no additional complaints Skin/Breast Reports system reviewed and no additional complaints, except as documented Neuro Reports no additional complaints Psych Reports no additional complaints Endo Reports no additional complaints Cristian/Lymph Reports no additional complaints Aller/Immun Reports no additional complaints Physical Exam Vital Signs: Last Vital Signs Pulse 74 02/08/23 08:28 BP 140/80 H 02/08/23 08:28 Pulse Ox 98 02/08/23 08:28 Oxygen Delivery Method Room Air 02/08/23 08:28 Const General: cooperative, healthy appearing, no acute distress and well developed Orientation/consciousness: patient oriented x3 HEENT Head: Yes normal to inspection Ears: hearing grossly normal bilaterally General nose exam: Normal external nose present Face and sinus: Yes normal facial exam Mouth: Normal oral and palatal mucosa present Eyes General: appearance normal, both eyes and all related structures Pupils: Equal, round and reactive pupils present EOM: EOMs intact bilaterally Resp Effort & Inspection: normal respiratory effort and no respiratory distress Auscultation: clear to auscultation bilaterally Cardio Rate: regular rate Rhythm: regular rhythm Heart sounds: no gallops, no murmurs and no rubs Peripheral pulses: Peripheral pulses 2+ throughout GI Inspection: No distended Palpation (GI): Soft to palpation and nontender Auscultation: normal bowel sounds General: Yes no CVA tenderness Back/Spine/Pelvis Back: no CVA tenderness Skin General skin exam: no rashes or lesions noted Neuro General: patient oriented x3 Cranial nerves: Yes CN's II-XII intact bilaterally and Yes Equal, round and reactive pupils present Gait exam (Neuro): Normal gait present Motor exam (neuro): 5/5 motor strength present throughout Extrem General: Yes normal to inspection, Yes full ROM and Yes no clubbing, cyanosis or edema Psych Appearance: grossly normal Mental Status: mental status grossly normal Affect: Anxious affect present Results AMB Urinalysis, Automated UA Leukoctes 125 Aubrey/uL Last Edit by Brian Weller [facility] on 02/08/23 08: 41 UA Nitrite Negative Last Edit by Brian Weller [facility] on 02/08/23 08:41 UA Urobilinogen 0 mg/dL Last Edit by NandiniRoxie Weller [facility] on 02/08/23 08: 41 UA Protein 0 mg/dL Last Edit by Brian Weller [facility] on 02/08/23 08:41 UA pH 7.0 Last Edit by NandiniRoxie Weller [facility] on 02/08/23 08:41 UA Blood 25 Blaine/uL Last Edit by NandiniRoxie Weller [facility] on 02/08/23 08:41 UA Specific [place] 1.005 Last Edit by Brian Weller [facility] on 02/08/23 08:41 UA Ketone Negative Last Edit by NandiniRoxie Weller [facility] on 02/08/23 08:41 UA Bilirubin 0 mg/dL Last Edit by NandiniRoxie Weller [facility] on 02/08/23 08:41 UA Glucose 0 mg/dL Last Edit by NandiniRoxie Weller [facility] on 02/08/23 08:41 Assessment & Plan Assessment & Plan (1) UTI (urinary tract infection): Code(s): N39.0 - Urinary tract infection, site not specified Plan This is a 67-year-old female with past medical history significant for recurrent urinary tract infections who presents with increased urinary frequency/urgency and pressure with urination x4 days. On physical examination, her vital signs are stable, she has no CVA tenderness, and she is overall nontoxic appearing. There is no evidence of systemic infection or complicated urinary tract infection. Patient is safe to be discharged home. She was sent home on p.o. Bactrim DS twice daily times 14 days. Patient was instructed to follow-up with her urologist in 2 months as scheduled. She was advised to inquire about prophylactic antibiotics given her recurrent urinary tract infections. She was also advised to increase fluid intake and start fiber supplements to bulk up her bowel movements. Patient was instructed to follow-up here or proceed directly to the emergency room if she were to develop fever/chills, nausea/vomiting, flank/back pain, or worsening/persistent symptoms. Patient verbalizes her understanding and she is in agreement with the plan. Orders: Orders AMB Urinalysis Automated Today Z13.9 - Encounter for screening, unspecified Medications: New sulfamethoxazole-trimethoprim 800-160 mg (Bactrim DS) 1 tab PO BID 28 tabs 0RF Coding Level of Care Code Est Pt Level 3 (21581) Diagnoses Acute cystitis with hematuria N39.0
[2023-02-08 08:28] VITALS: BP 140/80; PULSE 74; O2SAT 98
== END 2023-02-08 09:06 | disposition home or self-care (01) ==
PROVIDERS: PCP Internal Medicine; Visit Provider Physician Assistant Medical
DX: N39.0 Urinary tract infection, site not specified (principal); R35.0 Frequency of micturition
CPT/HCPCS: 81003; 99213

== ENCOUNTER 2023-04-26 06:15 | Outpatient (REF) | payer MEDICARE, OTHER, SELFPAY ==
[2023-04-26 11:25] LABS: Appearance Urine Clear; Color Urine Yellow; Glucose Urine UA Negative (Negative); Leukocyte Esterase Urine Negative (Negative); Nitrite Urine Negative (Negative); PH 5.5 (5.0-9.0); Specific Gravity - Urine 1.015 (1.005-1.025); Urine Blood Negative (Negative); Urine Ketones Negative (Negative); Urine Protein Negative (Neg-Trace)
[2023-04-26 11:26] LABS: MANUAL DIFF FLAG NO
[2023-04-26 11:37] LABS: Basophils Absolute Auto 0.1 X10*3/uL (0.0-0.2); Basophils Percent Auto 0.7 % (0-2); Eosinophils Absolute Auto 0.1 X10*3/uL (0.0-0.4); Eosinophils Percent Auto 1.6 % (0-4); Hematocrit 43.3 % (37.0-47.0); Hemoglobin 14.1 g/dl (12.0-16.0); Imm Gran Abs Auto 0.04 X10*3/uL (0.00-0.03); Imm Gran Pct Auto 0.5 % (0.0-0.4); Lymphocytes Absolute Auto 2.9 X10*3/uL (1.2-4.9); Lymphocytes Percent Auto 38.7 % (20-40); Mean Corpuscular HGB Conc 32.6 g/dl (31.0-35.0); Mean Corpuscular Hemoglobin 32.3 pg (27.0-33.0); Mean Corpuscular Volume 99.1 fL (80.0-98.0); Mean Platelet Volume 10.8 fL (9.4-12.3); Monocytes Absolute Auto 0.6 X10*3/uL (0.1-1.2); Monocytes Percent Auto 7.4 % (2-11); Neutrophils Absolute Auto 3.9 x10*3/uL (2.0-8.3); Neutrophils Percent Auto 51.1 % (45-73); Platelet Count 213 X10*3/uL (160-400); Red Blood Count 4.37 X10*6/uL (4.20-5.50); Red Cell Distribution Width 12.7 % (11.0-16.0); White Blood Count 7.6 X10*3/uL (4.8-10.8)
[2023-04-26 11:43] LABS: Estimated Average Glucose 126 mg/dL
[2023-04-26 12:06] LABS: Alanine Aminotransferase 19 U/L (0-31); Albumin Level 4.5 g/dL (3.5-5.0); Alkaline Phosphatase 40 U/L (39-117); Anion Gap 13 (12-20); Aspartate Amino Transferase 21 U/L (5-31); Bilirubin Total 0.4 mg/dL (0.0-1.0); Blood Urea Nitrogen 13 mg/dL (9-16); Calcium 9.9 mg/dL (8.4-10.2); Carbon Dioxide 28 mmol/L (22-29); Chloride 109 mmol/L (96-108); Estimated Glomerular Filt Rate > 60; Glucose Random 114 mg/dL (60-115); Potassium 4.7 mmol/L (3.3-5.1); Sodium 145 mmol/L (135-145); Total Protein 7.4 g/dL (6.5-8.0)
[2023-04-26 12:30] LABS: Creatinine Urine 81.83 mg/dL; Microalbum/Creatinine Ratio Ur 8.5 ug/mg cr (<30)
[2023-04-27 07:19] LABS: LDL Cholesterol Direct 182 mg/dL (<100)
== END 2023-04-26 06:16 | disposition home or self-care (01) ==
LOC: HO.HMGCLDS 06:15
PROVIDERS: PCP Internal Medicine; Visit Provider Internal Medicine
DX: E13.9 Other specified diabetes mellitus without complications (principal); F41.1 Generalized anxiety disorder; M54.16 Radiculopathy, lumbar region; C67.9 Malignant neoplasm of bladder, unspecified; E78.9 Disorder of lipoprotein metabolism, unspecified; G47.9 Sleep disorder, unspecified; M47.816 Spondylosis without myelopathy or radiculopathy, lumbar region; N39.0 Urinary tract infection, site not specified
CPT/HCPCS: 36415; 80053; 81003; 82043; 82570; 83036; 83721; 85025

== ENCOUNTER 2023-05-03 11:51 | Outpatient (AMB) | payer MEDICARE, OTHER, SELFPAY ==
--- NOTE | 2023-05-03 11:54 | MHC.PC.OV ---
Vital Signs 05/03/23 11:55 Height 5 ft 5 in Weight 146 lb BMI 24.3 BP 92/62 Blood Pressure Location Lt brachial Position Sitting Pulse 93 Pulse Source Pulse Oximeter Pulse Oximetry (%) 98 Oxygen Delivery Method Room Air Intake Visit Reasons: 3 month fu Allergies levofloxacin [From LEVAQUIN] Allergy (Intermediate, Verified 02/08/23 08:30) RED LINE UP ARM FROM IV SITE, redness, itching, swelling barium sulfate Adverse Reaction (Intermediate, Verified 02/08/23 08:30) agitation varenicline Adverse Reaction (Intermediate, Verified 02/08/23 08:30) agitation Medication List - Last Reconciled 05/03/23 by Maciel Cardona MD aspirin (Adult Aspirin Regimen) 81 mg PO DAILY bimatoprost 0.01% 1 drp ophthalmic (eye) BEDTIME brimonidine 0.2% 1 drp ophthalmic (eye) BID cholecalciferol (vitamin D3) 25 mcg PO DAILY dorzolamide 2% 1 drp ophthalmic (eye) DAILY fenofibrate 160 mg PO DAILY 90 days fluvastatin 20 mg PO DAILY lorazepam 0.5 mg PO DAILY PRN 90 days metformin 500 mg PO BID 90 days multivitamin 1 tab PO DAILY oxycodone 5 mg PO ONCE PRN 10 days Tobacco use date assessed: 05/03/23 Fall risk assessment: No Falls in past year Last assessed Fall Risk: 05/03/23 Dental Screening Dental Screen Date: 05/03/23 Did you have a dental visit in the last 12 months?: No Was dental information given to patient?: No HPI 3 month fu HPI Details Patient is 68-year-old female came in today for her regular 3 month follow-up appointment Patient is in her usual state of health However she has stopped taking simvastatin 40 mg due to cramping in her left leg She said that she stopped it and restarted and cramping started again Her LDL is 182 Patient says that she will reduce the dose and try again I have sent 20 mg of simvastatin for her History of papillary urothelial carcinoma However cystoscopy result that was done 12/11/2022 did not show any cancer cells She also have history of renal calculi She is established with the urologist External hemorrhoids: Stable Diabetes mellitus hemoglobin A1c is stable , patient is on metformin 500 mg b.i.d. and has been taking that for a while. Bp is stable Anxiety: Patient takes lorazepam as needed no refill was provided at this visit She also have a chronic back pain lumbar radiculitis radiating to left leg, I have sent oxycodone 30 tablets patient take only half a tablet if she is having a flare up. Follow-up 3 months , REPLACED BY [facility] Medical History Fatty liver Bruit (arterial) Hx of lipoma Arthritis Anxiety Renal calculi Family history of colon cancer in father Family history of throat cancer Endometriosis Hyperlipidemia 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 Maternal Grandfather No problems noted. Paternal Grandfather No problems noted. Paternal Grandmother No problems noted. Sister No problems noted. Sister No problems noted. Son No problems noted. Daughter No problems noted. Daughter Substance use disorder Social History Housing: House Alcohol intake: never Patient Tobacco Use Status: Current everyday Tobacco user Tobacco use type: Cigarette Cigarette Packs Per Day: 0.5 Cigarettes Per Day: 10 e-Cigarette/Vaping Use: Never Used Second Hand Smoke Exposure: Yes service: No Current occupational status: retired Cognitive needs: No Hearing needs: No Vision needs: Yes Questionnaire PHQ-9 Over the last 2 weeks, how often have you been bothered by any of the following problems? 1. Little interest or pleasure in doing things: not at all 2. Feeling down, depressed, or hopeless: not at all 3. Trouble falling or staying asleep, or sleeping too much: not at all 4. Feeling tired or having little energy: not at all 5. Poor appetite or overeating: not at all 6. Feeling bad about yourself - or that you are a failure or have let yourself or your family down: not at all 7. Trouble concentrating on things, such as reading the newspaper or watching television: not at all 8. Moving or speaking so slowly that other people could have noticed. Or the opposite - being so fidgety or restless that you have been moving around a lot more than usual: not at all 9. Thoughts that you would be better off or of hurting yourself in some way: not at all Total score: 0 Depression Screening Interpretation: Negative Depression Screening Done: Yes 30267 - PHQ-9 Billing: Yes Source: Developed by Drs. Jian Contreras, Florina Almanzar, Lionel Subramanian and colleagues, with an educational hipolito from [employer]. Thrive Questionnaire Date Thrive assessed: 05/03/23 I am a: Patient What is your living situation today?: I have a steady place to live Within the past 12 months, did the food you bought not last and you didn't have the money to get more?: Never true Within the past 12 months, did you worry whether your food would run out before you got money to buy more?: Never true Do you have trouble paying for medicines?: No Do you have trouble getting transportation to medical appointments?: No Do you have trouble paying your heating and electricity bill?: No Do you have trouble taking care of your child, family member or friend?: No Do you have trouble with day-to-day activities such as bathing, preparing meals, shopping, managing finances, etc.?: No Are you currently unemployed and looking for a job?: No Are you interested in more education?: No Please select the resources that you would like help with: None Currently or been in a relationship where the following occur: no concerns reported HARSHIL-7 AMB Questionnaire HARSHIL-7 Date HARSHIL - 7 assessed: 05/03/23 Feeling nervous, anxious, or on edge: 0 = Not at all Not being able to stop or control worryin = Not at all Worrying too much about different things: 0 = Not at all Trouble relaxin = Not at all Being so restless that it is hard to sit still: 0 = Not at all Becoming easily annoyed or irritable: 0 = Not at all Feeling afraid as if something awful might happen: 0 = Not at all Total HARSHIL-7 score (0-4 normal; 5-9 mild; 10-14 moderate; 15-21 severe): 0 Source: Developed by Drs. Jian Contreras, Florina Almanzar, Lionel Subramanian and colleagues, with an educational hipolito from [employer]. HARSHIL-7 Assessment Billing HARSHIL-7 Assessment Tool: HARSHIL-7 Assessment 94857 Review of Systems Const Denies chills and Denies fever(s) ENT Denies epistaxis and Denies nasal discharge Card Denies chest pain Resp Denies chest congestion, Denies cough and Denies hemoptysis GI Denies diarrhea and Denies nausea Skin/Breast Denies rash Neuro Reports no additional complaints Psych Reports no additional complaints Endo Reports no additional complaints Physical exam (Primary Care) Vital Signs: Last Vital Signs Pulse 93 05/03/23 11:55 BP 92/62 05/03/23 11:55 Pulse Ox 98 05/03/23 11:55 Oxygen Delivery Method Room Air 05/03/23 11:55 BMI result Body Mass Index 24.3 Tobacco/Smoking Status: Tobacco use Status Tobacco use date assessed 05/03/23 05/03/23 12:02 Patient Tobacco Use Status Current everyday Tobacco 05/03/23 11:55 Tobacco use type Cigarette 05/03/23 11:55 e-Cigarette/Vaping Use Never Used 05/03/23 11:55 PHQ-9: PHQ-9 Score PHQ-9: Total score 0 05/03/23 12:06 Depression Screening Interpretation: Negative Thrive Assessment: Date of Thrive Assessment Date Thrive assessed 05/03/23 05/03/23 12:02 Currently or been in a relationship where the following occur: no concerns reported Const General: cooperative, comfortable and no acute distress Orientation/consciousness: patient oriented x3 HENMT Head: Yes normocephalic Eyes General: appearance normal, both eyes and all related structures Neck Neck: Yes supple Resp Effort & Inspection: normal respiratory effort, no cough and no stridor Cardio Rhythm: regular rhythm Heart sounds: S1 normal heart sound present and S2 normal heart sound present Skin General skin exam: turgor normal Neuro General: patient oriented x3, tone normal and moves all extremities Extrem Right lower extremity: no edema Left lower extremity: no edema Assessment and Plan Assessment & Plan (1) Diabetes 1.5, managed as type 2: Code(s): E13.9 - Other specified diabetes mellitus without complications (2) Anxiety, generalized: Code(s): F41.1 - Generalized anxiety disorder (3) Left lumbar radiculitis: Code(s): M54.16 - Radiculopathy, lumbar region (4) Lipid disorder: Code(s): E78.9 - Disorder of lipoprotein metabolism, unspecified (5) Difficulty sleeping: Code(s): G47.9 - Sleep disorder, unspecified (6) Degenerative joint disease (DJD) of lumbar spine: Code(s): M47.816 - Spondylosis without myelopathy or radiculopathy, lumbar region Qualifiers: Spinal osteoarthritis complication: without myelopathy or radiculopathy Qualified Code(s): M47.816 - Spondylosis without myelopathy or radiculopathy, lumbar region Plan Patient is 68-year-old female came in today for her regular 3 month follow-up appointment Patient is in her usual state of health However she has stopped taking simvastatin 40 mg due to cramping in her left leg She said that she stopped it and restarted and cramping started again Her LDL is 182 Patient says that she will reduce the dose and try again I have sent 20 mg of simvastatin for her History of papillary urothelial carcinoma However cystoscopy result that was done 12/11/2022 did not show any cancer cells She also have history of renal calculi She is established with the urologist External hemorrhoids: Stable Diabetes mellitus hemoglobin A1c is stable , patient is on metformin 500 mg b.i.d. and has been taking that for a while. Bp is stable Anxiety: Patient takes lorazepam as needed no refill was provided at this visit She also have a chronic back pain lumbar radiculitis radiating to left leg, I have sent oxycodone 30 tablets patient take only half a tablet if she is having a flare up. Follow-up 3 months , Medications: New fluvastatin 20 mg PO DAILY 90 caps 0RF Changed From simvastatin 40 mg PO DAILY 90 days 90 tabs 1RF E78.9 - Disorder of lipoprotein metabolism, unspecified To simvastatin 20 mg PO DAILY 90 tabs 1RF 90 days E78.9 - Disorder of lipoprotein metabolism, unspecified From oxycodone 5 mg PO ONCE 10 days PRN 10 tabs 0RF pain To oxycodone partial refill permitted 5 mg PO ONCE PRN 30 tabs 0RF pain 30 days Refilled fenofibrate 160 mg PO DAILY 90 tabs 1RF 90 days E78.9 - Disorder of lipoprotein metabolism, unspecified metformin 500 mg PO BID 180 tabs 1RF 90 days E13.9 - Other specified diabetes mellitus without complications Discontinued simvastatin Discontinued Reason: Doctor's Order 40 mg PO DAILY 90 days 90 tabs 1RF E78.9 - Disorder of lipoprotein metabolism, unspecified Coding Level of Care Code Est Pt Level 4 (70601) Diagnoses Diabetes 1.5, managed as type 2 E13.9 Anxiety, generalized F41.1 Left lumbar radiculitis M54.16 Lipid disorder E78.9 Difficulty sleeping G47.9 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 complication: without myelopathy or radiculopathy Additional Codes HARSHLI-7 Assessment Billing - HARSHIL-7 Assessment Tool: HARSHIL-7 Assessment [id number] ([id number])
[2023-05-03 11:55] VITALS: BP 92/62; PULSE 93; O2SAT 98; BMI 24.3
== END 2023-05-03 15:07 | disposition home or self-care (01) ==
PROVIDERS: PCP Internal Medicine; Visit Provider Internal Medicine
DX: E13.9 Other specified diabetes mellitus without complications (principal); F41.1 Generalized anxiety disorder; M54.16 Radiculopathy, lumbar region; E78.9 Disorder of lipoprotein metabolism, unspecified; G47.9 Sleep disorder, unspecified; M47.816 Spondylosis without myelopathy or radiculopathy, lumbar region
CPT/HCPCS: 99214

== ENCOUNTER 2023-05-10 13:10 | Outpatient (AMB) | payer MEDICARE, OTHER, SELFPAY ==
[2023-05-10 13:17] VITALS: BMI 24.3
--- NOTE | 2023-05-10 13:17 | MHC.OFFVIS ---
Intake Vital Signs 05/10/23 13:17 Height 5 ft 5 in Weight 146 lb BMI 24.3 Intake Visit Reasons: 3m/cysto Intake Note: Patient presents today for a CYSTOSCOPY Procedure: Meds: None Allergies to Antibiotic: Levofloxacin Blood Thinner: Aspirin Urinalysis test cleared for Cysto Disposable Uro-G Cystoscope Cannula: Lot: [id number] Exp: 10/07/2024 Allergies levofloxacin [From LEVAQUIN] Allergy (Intermediate, Verified 05/10/23 13:17) RED LINE UP ARM FROM IV SITE, redness, itching, swelling barium sulfate Adverse Reaction (Intermediate, Verified 05/10/23 13:17) agitation varenicline Adverse Reaction (Intermediate, Verified 05/10/23 13:17) agitation HPI HPI Comments History of Present Illness Details 05/10/2023? 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 She originally presented due to gross hematuria. She is s/p Cystoscopy bladder biopsies on 12/11/2022, path results were benign. 05/10/23--Cystoscopy findings: WNL, no suspicious bladder lesions visualized Review of chart: She has had CAT scan of the kidney in the past which showed kidney stones and renal cysts which meets criteria of simple benign cysts. Plan: Will monitor right kidney stones. Follow up in 6 months for repeat cystoscopy. [facility]LY [facility] Medical History Fatty liver Bruit (arterial) Hx of lipoma Arthritis Anxiety Renal calculi Family history of colon cancer in father Family history of throat cancer Endometriosis Hyperlipidemia History of bladder cancer Diabetes 1.5, managed as type 2 Surgical History (Reviewed 05/10/23 @ 13:17 by Stephanie Ewing [facility]) History of eye surgery History of laryngoscopy History of biopsy History of colonoscopy History of bladder surgery History of hysterectomy Family History Father Throat cancer Mother CVD (cardiovascular disease) Heart disease Kidney disease Sister Metastatic cancer Maternal Grandmother No problems noted. Maternal Grandfather No problems noted. Paternal Grandfather No problems noted. Paternal Grandmother No problems noted. Sister No problems noted. Sister No problems noted. Son No problems noted. Daughter No problems noted. Daughter Substance use disorder Social History Housing: House Alcohol intake: never Patient Tobacco Use Status: Current everyday Tobacco user Tobacco use type: Cigarette Cigarette Packs Per Day: 0.5 Cigarettes Per Day: 10 e-Cigarette/Vaping Use: Never Used Second Hand Smoke Exposure: Yes service: No Current occupational status: retired Cognitive needs: No Hearing needs: No Vision needs: Yes Review of Systems Const All systems reviewed & are unremarkable except as noted in HPI and below Reports no additional complaints Eyes Reports no additional complaints ENT Reports no additional complaints Card Denies dyspnea Resp Denies cough and Denies dyspnea GI Reports no additional complaints Reports no additional complaints Musc Reports no additional complaints Skin/Breast Denies rash and Denies unusual bruising Neuro Reports no additional complaints Psych Reports no additional complaints Endo Reports no additional complaints Cristian/Lymph Reports no additional complaints Aller/Immun Reports no additional complaints Physical Exam Vital Signs: BMI result Body Mass Index 24.3 Office Procedures Cystoscopy Consent Discussed risk and benefit or proposed procedure with the patient. Information consent for procedure given to the patient. Discussed technical aspects, risks, benefits and alternatives in full. Addressed all of the patient's questions and concerns regarding the procedure. The patient demonstrated knowledge and understanding. They wish to proceed with this procedure. Preparation The patient was prepped in the usual manner. A cork compounder was present and in the room. Genitalia was prepped with betadine solution in a sterile manner. Lidocaine Jelly 2% was placed into the urethra and 16Fr flexible Olympus cystoscope was inserted into the meatus after adequate lubrication. Procedure Time out per protocol performed. Bladder Inspection Bladder Inspection: The bladder was inspected in its entirety with utilization retroflexion displaying: Tumor(s): none visualized Trabeculation: N/A Mucosal Erthema: N/A Orifices: normal shape and position Urethra: normal Cystoscopy findings: WNL, no suspicious bladder lesions visualized [id number] DISPOSABLE SCOPE URO-G FLEXIBLE SCOPE Procedure code (CPT) selection complete Office Meds lidocaine HCl 2 % mucosal jelly in applicator Performing Provider: David Siu MD [facility] Administered by: Corinna Rico RN on 05/10/23 13:35 Dose Route Admin Location Dispensed Lot Number Expiration Date NDC Grey Percher 10 mL intra-urethral 20 mL nitrofurantoin monohydrate/macrocrystals 100 mg capsule Performing Provider: David Siu MD Performing [facility] Administered by: Corinna Rico RN on 05/10/23 13:35 Dose Route Admin Location Dispensed Lot Number Expiration Date NDC Grey Percher 100 mg PO 1 cap naproxen 500 mg tablet Performing Provider: David Siu MD Performing Location: [facility] Administered by: Corinna Rico RN on 05/10/23 13:35 Dose Route Admin Location Dispensed Lot Number Expiration Date NDC Grey Percher 500 mg PO 1 tab Results AMB Urinalysis, Automated UA Leukoctes 15 Aubrey/uL Last Edit by RICA Schrader on 05/10/23 13:27 UA Nitrite Negative Last Edit by RICA Schrader on 05/10/23 13:27 UA Urobilinogen 0.2 mg/dL Last Edit by RICA Schrader on 05/10/23 13:27 UA Protein 0 mg/dL Last Edit by RICA Schrader on 05/10/23 13:27 UA pH 6.0 Last Edit by RICA Schrader on 05/10/23 13:27 UA Blood 0 Blaine/uL Last Edit by RICA Schrader on 05/10/23 13:27 UA Specific Sullivan 1.030 Last Edit by RICA Schrader on 05/10/23 13:27 UA Ketone Negative Last Edit by RICA Schrader on 05/10/23 13:27 UA Bilirubin 0 mg/dL Last Edit by RICA Schrader on 05/10/23 13:27 UA Glucose 0 mg/dL Last Edit by RICA Schrader on 05/10/23 13:27 Results Reviewed Results Reviewed: Laboratory Last Values Urine pH (Auto) 6.0 05/10/23 13:25 Specific Sullivan (Auto) 1.030 05/10/23 13:25 Urine Protein (Auto) 0 mg/dL 05/10/23 13:25 Glucose (UA)(Auto) 0 mg/dL 05/10/23 13:25 Urine Ketones (Auto) Negative 05/10/23 13:25 Urine Blood (Auto) 0 Blaine/uL 05/10/23 13:25 Urine Nitrite (Auto) Negative 05/10/23 13:25 Urine Bilirubin (Auto) 0 mg/dL 05/10/23 13:25 Urine Urobilinogen (Auto) 0.2 mg/dL 05/10/23 13:25 Leukocyte Esterase (Auto) 15 Aubrey/uL 05/10/23 13:25 Assessment & Plan Assessment & Plan (1) Renal calculi: Code(s): N20.0 - Calculus of kidney (2) Renal cyst: Code(s): N28.1 - Cyst of kidney, acquired (3) History of bladder cancer: Code(s): Z85.51 - Personal history of malignant neoplasm of bladder Plan Will monitor right kidney stones. Follow up in 6 months for repeat cystoscopy. Orders: Orders AMB Cystoscopy 05/10/23 N20.0 - Calculus of kidney, N28.1 - Cyst of kidney, acquired AMB Urinalysis Automated 05/10/23 R30.0 - Dysuria Patient Instructions: The patient had an opportunity to ask questions regarding treatment plan. All questions were answered. Imaging, Laboratory studies and physical exam results were discussed and reviewed in detail. No major barriers to understanding were identified. The patient expressed understanding and agreement with the above treatment plan. The patient is aware they should contact our office by phone for worsening of their current condition or the appearance of new symptoms. Compliance is encouraged with any medications and followup testing that is ordered. It is a privilege to be allowed the opportunity to participate in the urologic care of your patient. If you have any questions or concerns regarding treatment for the above conditions please do not hesitate to contact me. The office telephone contact is [phone]. This note is constructed in part using voice recognition software. While every effort has been made to ensure accuracy restoration silversmith errors may have been included. Yours sincerely, David Siu MD Coding Level of Care Code Est Pt Level 3 (94135) Diagnoses Renal calculi N20.0 Renal cyst N28.1 History of bladder cancer Z85.51 CPT Codes Cystoscopy - CPT: 95616-[id number] ([id number])
== END 2023-05-10 14:10 | disposition home or self-care (01) ==
PROVIDERS: PCP Internal Medicine; Visit Provider Urology
DX: N20.0 Calculus of kidney (principal); N28.1 Cyst of kidney, acquired; R30.0 Dysuria; Z85.51 Personal history of malignant neoplasm of bladder
CPT/HCPCS: 52000; 99213

== ENCOUNTER → 2023-05-10 13:10 | Outpatient (BNVA) | payer MEDICARE, OTHER, SELFPAY | PROVIDERS: PCP Internal Medicine; Visit Provider Urology | DX: N20.0 Calculus of kidney (principal); N28.1 Cyst of kidney, acquired; Z85.51 Personal history of malignant neoplasm of bladder | CPT/HCPCS: 52000; 81003; 99212 ==

== ENCOUNTER 2023-08-06 09:50 | Outpatient (AMB) | payer MEDICARE, OTHER, SELFPAY ==
[2023-08-06 09:52] VITALS: BP 96/58; PULSE 91; O2SAT 97; BMI 25.5
--- NOTE | 2023-08-06 09:52 | MHC.PC.OV ---
Vital Signs 08/06/23 09:52 Height 5 ft 5 in Weight 153 lb 2 oz BMI 25.5 BP 96/58 L Blood Pressure Location Rt brachial Position Sitting Pulse 91 Pulse Source Pulse Oximeter Pulse Oximetry (%) 97 Oxygen Delivery Method Room Air Intake Visit Reasons: 6 month fu Allergies levofloxacin [From LEVAQUIN] Allergy (Intermediate, Verified 08/06/23 09:52) RED LINE UP ARM FROM IV SITE, redness, itching, swelling barium sulfate Adverse Reaction (Intermediate, Verified 08/06/23 09:52) agitation varenicline Adverse Reaction (Intermediate, Verified 08/06/23 09:52) agitation Medication List - Last Reconciled 08/06/23 by Maciel Cardona MD aspirin (Adult Aspirin Regimen) 81 mg PO DAILY bimatoprost 0.01% 1 drp ophthalmic (eye) BEDTIME brimonidine 0.2% 1 drp ophthalmic (eye) BID cholecalciferol (vitamin D3) 25 mcg PO DAILY dorzolamide 2% 1 drp ophthalmic (eye) DAILY fenofibrate 160 mg PO DAILY 90 days lorazepam 0.5 mg PO DAILY PRN 90 days metformin 500 mg PO BID 90 days multivitamin 1 tab PO DAILY oxycodone 5 mg PO ONCE PRN 30 days simvastatin 20 mg PO DAILY 90 days Tobacco use date assessed: 08/06/23 Fall risk assessment: No Falls in past year Last assessed Fall Risk: 08/06/23 Dental Screening Dental Screen Date: 08/06/23 Did you have a dental visit in the last 12 months?: No Did you have a dental problem in the last 6 months where you did not have access to dental care?: No Was dental information given to patient?: No HPI 6 month fu HPI Details Patient is 68-year-old female came in today for her regular 3 month follow-up appointment Lipid disorder: Continue 20 mg of simvastatin fenofibrate 160 mg Labs are due order placed to be done fasting History of papillary urothelial carcinoma However cystoscopy result that was done 12/11/2022 did not show any cancer cells She also have history of renal calculi She is established with the urologist External hemorrhoids: Stable Diabetes mellitus hemoglobin A1c is stable , patient is on metformin 500 mg b.i.d. and has been taking that for a while. Bp is low today however patient do not have any lightheadedness or dizziness Anxiety: Patient takes lorazepam as needed refill was sent this visit 45 tablets She also have a chronic back pain lumbar radiculitis radiating to left leg, I have sent oxycodone 30 tablets patient take only half a tablet if she is having a flare up. Follow-up 3 months , [facility] Medical History Fatty liver Bruit (arterial) Hx of lipoma Arthritis Anxiety Renal calculi Family history of colon cancer in father Family history of throat cancer Endometriosis Hyperlipidemia 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 Maternal Grandfather No problems noted. Paternal Grandfather No problems noted. Paternal Grandmother No problems noted. Sister No problems noted. Sister No problems noted. Son No problems noted. Daughter No problems noted. Daughter Substance use disorder Social History Housing: House Alcohol intake: never Patient Tobacco Use Status: Current everyday Tobacco user Tobacco use type: Cigarette Cigarette Packs Per Day: 0.5 Cigarettes Per Day: 10 e-Cigarette/Vaping Use: Never Used Second Hand Smoke Exposure: Yes service: No Current occupational status: retired Cognitive needs: No Hearing needs: No Vision needs: Yes Questionnaire Thrive Questionnaire Date Thrive assessed: 05/03/23 AUDIT C Alcohol Use Questionnaire (AUDIT-C) 1. How often do you have a drink containing alcohol?: Never 2. How many drinks containing alcohol do you have on a typical day when you are drinking?: 1 or 2 3. How often do you have six or more drinks on one occasion?: Never Total Score: 0 Score Reviewed/Action Taken: Yes HARSHIL-7 AMB Questionnaire HARSHIL-7 Date HARSHIL - 7 assessed: 05/03/23 Feeling nervous, anxious, or on edge: 1 = Several days Not being able to stop or control worryin = Several days Worrying too much about different things: 1 = Several days Trouble relaxin = Several days Being so restless that it is hard to sit still: 1 = Several days Becoming easily annoyed or irritable: 1 = Several days Feeling afraid as if something awful might happen: 1 = Several days Total HARSHIL-7 score (0-4 normal; 5-9 mild; 10-14 moderate; 15-21 severe): 7 Source: Developed by Drs. Jian Contreras, Florina Almanzar, Lionel Subramanian and colleagues, with an educational hipolito from [email or web address]. Review of Systems Const Denies chills and Denies fever(s) ENT Denies epistaxis and Denies nasal discharge Card Denies chest pain Resp Denies chest congestion, Denies cough and Denies hemoptysis GI Denies diarrhea and Denies nausea Skin/Breast Denies rash Neuro Reports no additional complaints Psych Reports no additional complaints Endo Reports no additional complaints Physical exam (Primary Care) Vital Signs: Last Vital Signs Pulse 91 08/06/23 09:52 BP 96/58 L 08/06/23 09:52 Pulse Ox 97 08/06/23 09:52 Oxygen Delivery Method Room Air 08/06/23 09:52 BMI result Body Mass Index 25.5 Tobacco/Smoking Status: Tobacco use Status Tobacco use date assessed 08/06/23 08/06/23 10:00 Patient Tobacco Use Status Current everyday Tobacco 08/06/23 10:00 Tobacco use type Cigarette 08/06/23 10:00 e-Cigarette/Vaping Use Never Used 08/06/23 10:00 Thrive Assessment: Date of Thrive Assessment Date Thrive assessed 05/03/23 08/06/23 10:00 Const General: cooperative, comfortable and no acute distress Orientation/consciousness: patient oriented x3 HENMT Head: Yes normocephalic Eyes General: appearance normal, both eyes and all related structures Neck Neck: Yes supple Resp Effort & Inspection: normal respiratory effort, no cough and no stridor Cardio Rhythm: regular rhythm Heart sounds: S1 normal heart sound present and S2 normal heart sound present Skin General skin exam: turgor normal Neuro General: patient oriented x3, tone normal and moves all extremities Extrem Right lower extremity: no edema Left lower extremity: no edema Assessment and Plan Assessment & Plan (1) Diabetes 1.5, managed as type 2: Code(s): E13.9 - Other specified diabetes mellitus without complications (2) Anxiety, generalized: Code(s): F41.1 - Generalized anxiety disorder (3) Left lumbar radiculitis: Code(s): M54.16 - Radiculopathy, lumbar region (4) Lipid disorder: Code(s): E78.9 - Disorder of lipoprotein metabolism, unspecified (5) Difficulty sleeping: Code(s): G47.9 - Sleep disorder, unspecified (6) External hemorrhoid: Code(s): K64.4 - Residual hemorrhoidal skin tags (7) History of bladder cancer: Code(s): Z85.51 - Personal history of malignant neoplasm of bladder (8) Degenerative joint disease (DJD) of lumbar spine: Code(s): M47.816 - Spondylosis without myelopathy or radiculopathy, lumbar region Qualifiers: Spinal osteoarthritis complication: without myelopathy or radiculopathy Qualified Code(s): M47.816 - Spondylosis without myelopathy or radiculopathy, lumbar region (9) Tobacco dependence: Code(s): F17.200 - Nicotine dependence, unspecified, uncomplicated Plan Patient is 68-year-old female came in today for her regular 3 month follow-up appointment Lipid disorder: Continue 20 mg of simvastatin fenofibrate 160 mg Labs are due order placed to be done fasting History of papillary urothelial carcinoma However cystoscopy result that was done 12/11/2022 did not show any cancer cells She also have history of renal calculi She is established with the urologist External hemorrhoids: Stable Continued to smoke little less than half a pack a day, patient says that she is aware and is trying to quit Requesting Ventolin inhaler which I have sent Diabetes mellitus hemoglobin A1c is stable , patient is on metformin 500 mg b.i.d. and has been taking that for a while. Bp is low today however patient do not have any lightheadedness or dizziness Anxiety: Patient takes lorazepam as needed refill was sent this visit 45 tablets She also have a chronic back pain lumbar radiculitis radiating to left leg, I have sent oxycodone 30 tablets patient take only half a tablet if she is having a flare up. Follow-up 3 months Orders: Orders Hemoglobin A1c Today E13.9 - Other specified diabetes mellitus without complications, E78.9 - Disorder of lipoprotein metabolism, unspecified, F41.1 - Generalized anxiety disorder, G47.9 - Sleep disorder, unspecified, K64.4 - Residual hemorrhoidal skin tags, M54.16 - Radiculopathy, lumbar region, Z85.51 - Personal history of malignant neoplasm of bladder Microalbumin, Random (w Creat) Today E13.9 - Other specified diabetes mellitus without complications, E78.9 - Disorder of lipoprotein metabolism, unspecified, F41.1 - Generalized anxiety disorder, G47.9 - Sleep disorder, unspecified, K64.4 - Residual hemorrhoidal skin tags, M54.16 - Radiculopathy, lumbar region, Z85.51 - Personal history of malignant neoplasm of bladder Complete Blood Count Auto Diff Today E13.9 - Other specified diabetes mellitus without complications, E78.9 - Disorder of lipoprotein metabolism, unspecified, F41.1 - Generalized anxiety disorder, G47.9 - Sleep disorder, unspecified, K64.4 - Residual hemorrhoidal skin tags, M54.16 - Radiculopathy, lumbar region, Z85.51 - Personal history of malignant neoplasm of bladder Comprehensive [place]. Panel Fast Today E13.9 - Other specified diabetes mellitus without complications, E78.9 - Disorder of lipoprotein metabolism, unspecified, F41.1 - Generalized anxiety disorder, G47.9 - Sleep disorder, unspecified, K64.4 - Residual hemorrhoidal skin tags, M54.16 - Radiculopathy, lumbar region, Z85.51 - Personal history of malignant neoplasm of bladder Lipid Panel Today E13.9 - Other specified diabetes mellitus without complications, E78.9 - Disorder of lipoprotein metabolism, unspecified, F41.1 - Generalized anxiety disorder, G47.9 - Sleep disorder, unspecified, K64.4 - Residual hemorrhoidal skin tags, M54.16 - Radiculopathy, lumbar region, Z85.51 - Personal history of malignant neoplasm of bladder Medications: New albuterol sulfate 90 mcg/actuation (Ventolin HFA) 1 inh inhalation QID PRN 6.7 grams 0RF shortness of breath or wheezing 30 days Refilled lorazepam 0.5 mg PO DAILY PRN 45 tabs 0RF sleep 90 days G47.9 - Sleep disorder, unspecified oxycodone partial refill permitted 5 mg PO ONCE PRN 30 tabs 0RF pain 30 days Coding Level of Care Code Est Pt Level 4 (85256) Diagnoses Diabetes 1.5, managed as type 2 E13.9 Anxiety, generalized F41.1 Left lumbar radiculitis M54.16 Lipid disorder E78.9 Difficulty sleeping G47.9 External hemorrhoid K64.4 History of bladder cancer Z85.51 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 complication: without myelopathy or radiculopathy Tobacco dependence F17.200
== END 2023-08-06 10:56 | disposition home or self-care (01) ==
PROVIDERS: PCP Internal Medicine; Visit Provider Internal Medicine
DX: E13.9 Other specified diabetes mellitus without complications (principal); F41.1 Generalized anxiety disorder; M54.16 Radiculopathy, lumbar region; E78.9 Disorder of lipoprotein metabolism, unspecified; G47.9 Sleep disorder, unspecified; K64.4 Residual hemorrhoidal skin tags; Z85.51 Personal history of malignant neoplasm of bladder; M47.816 Spondylosis without myelopathy or radiculopathy, lumbar region; F17.200 Nicotine dependence, unspecified, uncomplicated
CPT/HCPCS: 99214

== ENCOUNTER 2023-09-19 12:01 | Outpatient (AMB) | payer MEDICARE, OTHER, SELFPAY ==
--- NOTE | 2023-09-19 12:04 | MHC.OFFWIV ---
Intake Vital Signs 09/19/23 12:06 Height 5 ft 5 in Weight 155 lb BMI 25.8 BP 130/78 Blood Pressure Location Lt brachial Position Sitting Pulse 89 Pulse Source Pulse Oximeter Temp 97.8 F Temp Source Temporal Artery Scan Pulse Oximetry (%) 98 Oxygen Delivery Method Room Air Intake Visit Reasons: EP UTI Intake Note: pt is here today for UTI started saturday Patient Tobacco Use Status: Current everyday Tobacco user Allergies levofloxacin [From LEVAQUIN] Allergy (Intermediate, Verified 09/19/23 12:20) RED LINE UP ARM FROM IV SITE, redness, itching, swelling barium sulfate Adverse Reaction (Intermediate, Verified 09/19/23 12:20) agitation varenicline Adverse Reaction (Intermediate, Verified 09/19/23 12:20) agitation Do you need a note to return to daycare/school/sports/work: No HPI HPI Comments History of Present Illness Details Pt 68 y/o female patient who presents to walk in clinic with c/o Urinary symptoms since Saturday. H/o Bladder cancer 2021. She does get Frequent UTIs. Pt requesting Bactrim today. [facility] Medical History Fatty liver Bruit (arterial) Hx of lipoma Arthritis Anxiety Renal calculi Family history of colon cancer in father Family history of throat cancer Endometriosis Hyperlipidemia 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 Maternal Grandfather No problems noted. Paternal Grandfather No problems noted. Paternal Grandmother No problems noted. Sister No problems noted. Sister No problems noted. Son No problems noted. Daughter No problems noted. Daughter Substance use disorder Social History Housing: House Alcohol intake: never Patient Tobacco Use Status: Current everyday Tobacco user Tobacco use type: Cigarette Cigarette Packs Per Day: 0.5 Cigarettes Per Day: 10 e-Cigarette/Vaping Use: Never Used Second Hand Smoke Exposure: Yes service: No Current occupational status: retired Cognitive needs: No Hearing needs: No Vision needs: Yes Physical Exam Vital Signs: Last Vital Signs Temp 97.8 F 09/19/23 12:06 Pulse 89 09/19/23 12:06 BP 130/78 09/19/23 12:06 Pulse Ox 98 09/19/23 12:06 Oxygen Delivery Method Room Air 09/19/23 12:06 BMI result Body Mass Index 25.8 Const General: comfortable and no acute distress Orientation/consciousness: patient oriented x3 General: Yes CVA tenderness Back/Spine/Pelvis Back: CVA tenderness Neuro General: patient oriented x3, gait normal and moves all extremities Psych Speech and movement: Normal speech and movement present Results AMB Urinalysis, Automated UA Leukoctes 500 Aubrey/uL Last Edit by Eldon Godfrey CMA on 09/19/23 12:25 UA Nitrite Positive Last Edit by Eldon Godfrey CMA on 09/19/23 12:25 UA Urobilinogen 0.2 mg/dL Last Edit by Eldon Godfrey CMA on 09/19/23 12:25 UA Protein 15 mg/dL Last Edit by Eldon Godfrey CMA on 09/19/23 12:25 UA pH 6.0 Last Edit by Eldon Godfrey CMA on 09/19/23 12:25 UA Blood 0 Blaine/uL Last Edit by Eldon Godfrey CMA on 09/19/23 12:25 UA Specific [place] 1.015 Last Edit by Eldon Godfrey CMA on 09/19/23 12:25 UA Ketone Negative Last Edit by Eldon Godfrey CMA on 09/19/23 12:25 UA Bilirubin 0 mg/dL Last Edit by Eldon Godfrey CMA on 09/19/23 12:25 UA Glucose 0 mg/dL Last Edit by Eldon Godfrey CMA on 09/19/23 12:25 Results Reviewed Results Reviewed: Laboratory Last Values Urine pH (Auto) 6.0 09/19/23 12:24 Specific [place] (Auto) 1.015 09/19/23 12:24 Urine Protein (Auto) 15 mg/dL 09/19/23 12:24 Glucose (UA)(Auto) 0 mg/dL 09/19/23 12:24 Urine Ketones (Auto) Negative 09/19/23 12:24 Urine Blood (Auto) 0 Blaine/uL 09/19/23 12:24 Urine Nitrite (Auto) Positive 09/19/23 12:24 Urine Bilirubin (Auto) 0 mg/dL 09/19/23 12:24 Urine Urobilinogen (Auto) 0.2 mg/dL 09/19/23 12:24 Leukocyte Esterase (Auto) 500 Aubrey/uL 09/19/23 12:24 Assessment & Plan Assessment & Plan (1) Cystitis: Code(s): N30.90 - Cystitis, unspecified without hematuria Plan: - Sent Bactrim as requested. Last Urine culture showed E.coli bacteria sensitive with Ceftriaxone and Levothyroxine. - F/u With Urology as planned in September. - Hydrate well with water. Orders: Orders AMB Urinalysis Automated Today Z13.9 - Encounter for screening, unspecified Medications: New sulfamethoxazole-trimethoprim 400-80 mg 1 tab PO BID 20 tabs 0RF 10 days N30.90 - Cystitis, unspecified without hematuria Coding Level of Care Code Est Pt Level 3 (53326) Diagnoses Cystitis N30.90 Time Spent (min) 15
[2023-09-19 12:06] VITALS: BP 130/78; PULSE 89; TEMP 36.6; O2SAT 98; BMI 25.8
== END 2023-09-19 13:07 | disposition home or self-care (01) ==
PROVIDERS: PCP Internal Medicine; Visit Provider Nurse Practitioner Family
DX: N30.90 Cystitis, unspecified without hematuria (principal)
CPT/HCPCS: 81003; 99213

== ENCOUNTER 2023-10-22 15:02 | Outpatient (REF) | payer MEDICARE, OTHER, SELFPAY ==
--- NOTE | ~2023-10-22 | US_ITS ---
EXAMINATION: US RETROPERITONEAL LIMITED (RENAL ONLY) CLINICAL INFORMATION: Calculus of kidney. COMPARISON: CT urogram 12/05/2022. Ultrasound renal 09/25/2021. X-ray abdomen 09/01/2021. TECHNIQUE: Real-time imaging of the kidneys. Limited visualization due to bowel gas. FINDINGS: RIGHT KIDNEY: 10.5 x 4.3 x 6.4 cm (SAG x AP x TRV). No hydronephrosis. No renal calculi. Renal cortical thickness is normal. Limited visualization. LEFT KIDNEY: 9.9 x 4.9 x 6.6 cm (SAG x AP x TRV). No hydronephrosis. No renal calculi. Renal cortical thickness is normal. Limited visualization. US/US renal BI IMPRESSION: No hydronephrosis. No renal calculi.
== END 2023-10-22 15:03 | disposition home or self-care (01) ==
LOC: HO.HMGCX 15:02
PROVIDERS: PCP Internal Medicine; Visit Provider Urology
DX: N20.0 Calculus of kidney (principal)
CPT/HCPCS: 76775

== ENCOUNTER 2023-10-23 06:01 | Outpatient (REF) | payer MEDICARE, OTHER, SELFPAY ==
[2023-10-23 10:42] LABS: MANUAL DIFF FLAG NO
[2023-10-23 10:50] LABS: Basophils Absolute Auto 0.1 X10*3/uL (0.0-0.2); Basophils Percent Auto 0.6 % (0-2); Eosinophils Absolute Auto 0.1 X10*3/uL (0.0-0.4); Eosinophils Percent Auto 1.5 % (0-4); Hematocrit 41.4 % (37.0-47.0); Hemoglobin 13.6 g/dl (12.0-16.0); Imm Gran Abs Auto 0.03 X10*3/uL (0.00-0.03); Imm Gran Pct Auto 0.3 % (0.0-0.4); Lymphocytes Absolute Auto 2.8 X10*3/uL (1.2-4.9); Mean Corpuscular HGB Conc 32.9 g/dl (31.0-35.0); Mean Corpuscular Hemoglobin 32.5 pg (27.0-33.0); Mean Corpuscular Volume 98.8 fL (80.0-98.0); Mean Platelet Volume 10.9 fL (9.4-12.3); Monocytes Absolute Auto 0.7 X10*3/uL (0.1-1.2); Monocytes Percent Auto 7.8 % (2-11); Neutrophils Absolute Auto 5.3 x10*3/uL (2.0-8.3); Neutrophils Percent Auto 58.8 % (45-73); Platelet Count 225 X10*3/uL (160-400); Red Blood Count 4.19 X10*6/uL (4.20-5.50); Red Cell Distribution Width 12.9 % (11.0-16.0); White Blood Count 8.9 X10*3/uL (4.8-10.8)
[2023-10-23 11:04] LABS: Estimated Average Glucose 137 mg/dL; Hemoglobin A1c % 6.4 % (<6.0)
[2023-10-23 11:18] LABS: Alanine Aminotransferase 19 U/L (0-31); Albumin Level 4.2 g/dL (3.5-5.0); Alkaline Phosphatase 37 U/L (39-117); Anion Gap 13 (12-20); Aspartate Amino Transferase 19 U/L (5-31); Bilirubin Total 0.5 mg/dL (0.0-1.0); Blood Urea Nitrogen 10 mg/dL (9-16); Carbon Dioxide 26 mmol/L (22-29); Chloride 106 mmol/L (96-108); Cholesterol 211 mg/dL (<200); Estimated Glomerular Filt Rate > 60; Glucose Fasting 130 mg/dL (60-99); HDL Cholesterol 50 mg/dL (>40); LDL Cholesterol Calculated 132 mg/dL (<100); Sodium 141 mmol/L (135-145); Total Protein 6.8 g/dL (6.5-8.0); Triglycerides 147 mg/dL (<150)
[2023-10-23 11:41] LABS: Creatinine Urine 90.05 mg/dL; Microalbum/Creatinine Ratio Ur 8.8 ug/mg cr (<30)
== END 2023-10-23 06:02 | disposition home or self-care (01) ==
LOC: HO.HMGCLDS 06:01
PROVIDERS: PCP Internal Medicine; Visit Provider Internal Medicine
DX: E13.9 Other specified diabetes mellitus without complications (principal); F41.1 Generalized anxiety disorder; M54.16 Radiculopathy, lumbar region; E78.9 Disorder of lipoprotein metabolism, unspecified; G47.9 Sleep disorder, unspecified; K64.4 Residual hemorrhoidal skin tags; Z85.51 Personal history of malignant neoplasm of bladder
CPT/HCPCS: 36415; 80053; 80061; 82043; 82570; 83036; 85025

== ENCOUNTER 2023-11-01 08:01 | Outpatient (AMB) | payer MEDICARE, OTHER, SELFPAY ==
[2023-11-01 08:01] VITALS: BP 124/82; PULSE 100; TEMP 36.9; O2SAT 98; BMI 25.4
--- NOTE | 2023-11-01 08:01 | AM.OFFWIN_ITS ---
Intake Vital Signs 11/01/23 08:01 Height 5 ft 5 in Weight 152 lb 8 oz BMI 25.4 BP 124/82 Blood Pressure Location Lt brachial Position Sitting Pulse 100 Pulse Source Pulse Oximeter Temp 98.4 F Temp Source Oral Pulse Oximetry (%) 98 Oxygen Delivery Method Room Air Intake Visit Reasons: EP ?UTI Intake Note: Pt is here today for possible UTI, pt was seen here a few weeks ago with the same symptoms. Patient Tobacco Use Status: Current everyday Tobacco user Allergies levofloxacin [From LEVAQUIN] Allergy (Intermediate, Verified 11/01/23 08:05) RED LINE UP ARM FROM IV SITE, redness, itching, swelling barium sulfate Adverse Reaction (Intermediate, Verified 11/01/23 08:05) agitation varenicline Adverse Reaction (Intermediate, Verified 11/01/23 08:05) agitation Do you need a note to return to daycare/school/sports/work: No HPI HPI Comments History of Present Illness Details 68-year-old female complaining of 3 day s of increasing pain with urination. She denies any fevers or burning with urination but does complain of associated incomplete emptying. She was here and tested positive for UTI on September 18, she was treated with Bactrim, micro grew E coli sensitive to ceftriaxone and Levaquin. She states she did feel better after that course of antibiotics but does not think the UTI ever actually resolves because the antibiotics were not the right of Bactrim. She states she requires double- strength Bactrim for 14 days. She is also requesting Pyridium for pain. She does have an appointment with her urologist in 1 week. 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 Maternal Grandfather No problems noted. Paternal Grandfather No problems noted. Paternal Grandmother No problems noted. Sister No problems noted. Sister No problems noted. Son No problems noted. Daughter No problems noted. Daughter Substance use disorder Social History Housing: House Alcohol intake: never Patient Tobacco Use Status: Current everyday Tobacco user Tobacco use type: Cigarette Cigarette Packs Per Day: 0.5 Cigarettes Per Day: 10 e-Cigarette/Vaping Use: Never Used Second Hand Smoke Exposure: Yes service: No Current occupational status: retired Cognitive needs: No Hearing needs: No Vision needs: Yes Review of Systems Const All systems reviewed & are unremarkable except as noted in HPI and below Physical Exam Vital Signs: Last Vital Signs Temp 98.4 F 11/01/23 08:01 Pulse 100 11/01/23 08:01 BP 124/82 11/01/23 08:01 Pulse Ox 98 11/01/23 08:01 Oxygen Delivery Method Room Air 11/01/23 08:01 BMI result Body Mass Index 25.4 Const General: cooperative, healthy appearing, comfortable, no acute distress and well developed Orientation/consciousness: patient oriented x3 Limitations: no limitations HEENT Head: Yes normal to inspection Eyes General: appearance normal, both eyes and all related structures Neck Neck: Yes normal visual inspection and Yes full ROM Resp Effort & Inspection: normal respiratory effort and able to speak in complete sentences Auscultation: clear to auscultation bilaterally Skin General skin exam: no rashes or lesions noted Neuro General: patient oriented x3 Extrem General: Yes normal to inspection Results AMB Urinalysis, Automated UA Leukoctes 500 Aubrey/uL Last Edit by Faye Rico CMA on 11/01/23 08:13 UA Nitrite Positive Last Edit by Faye Rico CMA on 11/01/23 08:13 UA Urobilinogen 0.2 mg/dL Last Edit by Faye Rico CMA on 11/01/23 08:13 UA Protein 15 mg/dL Last Edit by Faye Rico CMA on 11/01/23 08:13 UA pH 6.0 Last Edit by Faye Rico CMA on 11/01/23 08:13 UA Blood 25 Blaine/uL Last Edit by Faye Rico CMA on 11/01/23 08:13 UA Specific [place] 1.020 Last Edit by aFye Rico CMA on 11/01/23 08:13 UA Ketone Negative Last Edit by Faye Rico CMA on 11/01/23 08:13 UA Bilirubin 0 mg/dL Last Edit by Faye Rico CMA on 11/01/23 08:13 UA Glucose 0 mg/dL Last Edit by Faye Rico CMA on 11/01/23 08:13 Assessment & Plan Assessment & Plan (1) UTI (urinary tract infection): Code(s): N39.0 - Urinary tract infection, site not specified Qualifiers: Urinary tract infection type: acute cystitis Hematuria presence: without hematuria Qualified Code(s): N30.00 - Acute cystitis without hematuria Plan: VSS, Sent for cx, sent bactrim and pyridium. advised red flag sx to go to the ED. Orders: Orders Urine Culture Today N39.0 - Urinary tract infection, site not specified AMB Urinalysis Automated Today Z13.9 - Encounter for screening, unspecified Medications: New sulfamethoxazole-trimethoprim 800-160 mg (Bactrim DS) 1 tab PO Q12H 20 tabs 0RF phenazopyridine 100 mg PO TID PRN 6 tabs 0RF pain Coding Level of Care Code Est Pt Level 3 (70428) Diagnoses Acute cystitis without hematuria N30.00 Urinary tract infection type: acute cystitis Hematuria presence: without hematuria
== END 2023-11-01 08:38 | disposition home or self-care (01) ==
PROVIDERS: PCP Internal Medicine; Visit Provider Physician Assistant
DX: N30.00 Acute cystitis without hematuria (principal)
CPT/HCPCS: 81003; 99213

== ENCOUNTER 2023-11-01 08:28 | Outpatient (REF) | payer MEDICARE, OTHER, SELFPAY | END 2023-11-01 08:29 | disposition home or self-care (01) | LOC: HO.LAB 08:28 | PROVIDERS: Visit Provider Physician Assistant | DX: Z13.89 Encounter for screening for other disorder (principal) ==

== ENCOUNTER 2023-11-06 09:46 | Outpatient (AMB) | payer MEDICARE, OTHER, SELFPAY ==
[2023-11-06 09:48] VITALS: BP 102/48; PULSE 82; O2SAT 99; BMI 24.8
--- NOTE | 2023-11-06 09:48 | MHC.PC.OV ---
Vital Signs 11/06/23 09:48 Height 5 ft 5 in Weight 149 lb 4 oz BMI 24.8 BP 102/48 L Blood Pressure Location Rt brachial Position Sitting Pulse 82 Pulse Source Pulse Oximeter Pulse Oximetry (%) 99 Oxygen Delivery Method Room Air Intake Visit Reasons: 9 month fu Allergies levofloxacin [From LEVAQUIN] Allergy (Intermediate, Verified 11/06/23 09:51) RED LINE UP ARM FROM IV SITE, redness, itching, swelling barium sulfate Adverse Reaction (Intermediate, Verified 11/06/23 09:51) agitation varenicline Adverse Reaction (Intermediate, Verified 11/06/23 09:51) agitation Medication List - Last Reconciled 11/06/23 by Maciel Cardona MD albuterol sulfate 90 mcg/actuation (Ventolin HFA) 1 inh inhalation QID PRN 30 days aspirin (Adult Aspirin Regimen) 81 mg PO DAILY bimatoprost 0.01% 1 drp ophthalmic (eye) BEDTIME brimonidine 0.2% 1 drp ophthalmic (eye) BID cholecalciferol (vitamin D3) 25 mcg PO DAILY dorzolamide 2% 1 drp ophthalmic (eye) DAILY fenofibrate 160 mg PO DAILY 90 days lorazepam 0.5 mg PO DAILY PRN 90 days metformin 500 mg PO BID 90 days multivitamin 1 tab PO DAILY oxycodone 5 mg PO ONCE PRN 30 days phenazopyridine 100 mg PO TID PRN 6 doses simvastatin 20 mg PO DAILY 90 days sulfamethoxazole-trimethoprim 800-160 mg (Bactrim DS) 1 tab PO Q12H Tobacco use date assessed: 11/06/23 Fall risk assessment: No Falls in past year Last assessed Fall Risk: 11/06/23 Dental Screening Dental Screen Date: 11/06/23 Did you have a dental visit in the last 12 months?: Yes Did you have a dental problem in the last 6 months where you did not have access to dental care?: No Was dental information given to patient?: Patient has dentist HPI 9 month fu HPI Details Patient is 68-year-old female came in today for her regular follow-up appointment Patient has been taking Bactrim for urinary tract infection and has taken 5 days already She is complaining of feeling tired and weakness since she started the antibiotic, she has not sure but baby before that There is no nausea vomiting headache diarrhea abdominal pain I have told her to stop Bactrim, we will be doing urinalysis again today She is established with a urologist as well and has upcoming appointment Saturday next week Patient also suffers from lumbar pain, she requested handicap placard which I did filled for her but it was declined as there is not enough information Last time she had x-ray lumbar spine was 2014, I have ordered another x-ray to update. Once x-ray report is available I can assist with handicap placard Her pain is located in lumbar spine and is nonradiating however patient is unable to climb to many stairs and walk long distance without stopping Diabetes mellitus: Patient had labs recently her A1c is 6.4 Her blood pressure is running low as well however she is drinking plenty of water Anxiety is stable she is on lorazepam 0.5 mg as needed Labs done recently reviewed LDL is stable, she is to continue simvastatin 20 mg daily and fenofibrate for elevated triglycerides. Medication list reviewed, patient was given chance to ask questions. We will set up another visit in 7 days to see how she is feeling To go over x-ray report and to fill handicap placard forms [facility] Medical History Fatty liver Bruit (arterial) Hx of lipoma Arthritis Anxiety Renal calculi Family history of colon cancer in father Family history of throat cancer Endometriosis Hyperlipidemia 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 Maternal Grandfather No problems noted. Paternal Grandfather No problems noted. Paternal Grandmother No problems noted. Sister No problems noted. Sister No problems noted. Son No problems noted. Daughter No problems noted. Daughter Substance use disorder Social History Housing: House Alcohol intake: never Patient Tobacco Use Status: Current everyday Tobacco user Tobacco use type: Cigarette Cigarette Packs Per Day: 0.5 Cigarettes Per Day: 10 e-Cigarette/Vaping Use: Never Used Second Hand Smoke Exposure: Yes service: No Current occupational status: retired Cognitive needs: No Hearing needs: No Vision needs: Yes Questionnaire PHQ-9 Over the last 2 weeks, how often have you been bothered by any of the following problems? 1. Little interest or pleasure in doing things: several days 2. Feeling down, depressed, or hopeless: several days 3. Trouble falling or staying asleep, or sleeping too much: several days 4. Feeling tired or having little energy: more than half the days 5. Poor appetite or overeating: not at all 6. Feeling bad about yourself - or that you are a failure or have let yourself or your family down: not at all 7. Trouble concentrating on things, such as reading the newspaper or watching television: not at all 8. Moving or speaking so slowly that other people could have noticed. Or the opposite - being so fidgety or restless that you have been moving around a lot more than usual: not at all 9. Thoughts that you would be better off or of hurting yourself in some way: not at all Total score: 5 Depression Screening Interpretation: Negative Depression Screening Done: Yes 57856 - PHQ-9 Billing: Yes Source: Developed by Drs. Jian Contreras, Florina Almanzar, Lionel Subramanian and colleagues, with an educational hipolito from [employer]. Thrive Questionnaire Date Thrive assessed: 11/06/23 I am a: Patient What is your living situation today?: I have a steady place to live Within the past 12 months, did the food you bought not last and you didn't have the money to get more?: Never true Within the past 12 months, did you worry whether your food would run out before you got money to buy more?: Never true Do you have trouble paying for medicines?: No Do you have trouble getting transportation to medical appointments?: No Do you have trouble paying your heating and electricity bill?: No Do you have trouble taking care of your child, family member or friend?: No Do you have trouble with day-to-day activities such as bathing, preparing meals, shopping, managing finances, etc.?: No Are you currently unemployed and looking for a job?: No Are you interested in more education?: No Please select the resources that you would like help with: None Currently or been in a relationship where the following occur: no concerns reported THRIVE Score: 0 AUDIT C Alcohol Use Questionnaire (AUDIT-C) 1. How often do you have a drink containing alcohol?: Never 3. How often do you have six or more drinks on one occasion?: Never Total Score: 0 Score Reviewed/Action Taken: Yes HARSHIL-7 AMB Questionnaire HARSHIL-7 Date HARSHIL - 7 assessed: 11/06/23 Feeling nervous, anxious, or on edge: 1 = Several days Not being able to stop or control worryin = Several days Worrying too much about different things: 1 = Several days Trouble relaxin = Several days Being so restless that it is hard to sit still: 0 = Not at all Becoming easily annoyed or irritable: 0 = Not at all Feeling afraid as if something awful might happen: 1 = Several days Total HARSHIL-7 score (0-4 normal; 5-9 mild; 10-14 moderate; 15-21 severe): 5 Source: Developed by Drs. Jian Contreras, Florina Almanzar, Lionel Subramanian and colleagues, with an educational hipolito from [employer]. HARSHIL-7 Assessment Billing HARSHIL-7 Assessment Tool: HARSHIL-7 Assessment 40490 Review of Systems Const Denies chills and Denies fever(s) ENT Denies epistaxis and Denies nasal discharge Card Denies chest pain Resp Denies chest congestion, Denies cough and Denies hemoptysis GI Denies diarrhea and Denies nausea Skin/Breast Denies rash Neuro Reports no additional complaints Psych Reports no additional complaints Endo Reports no additional complaints Physical exam (Primary Care) Vital Signs: Last Vital Signs Pulse 82 11/06/23 09:48 BP 102/48 L 11/06/23 09:48 Pulse Ox 99 11/06/23 09:48 Oxygen Delivery Method Room Air 11/06/23 09:48 BMI result Body Mass Index 24.8 Tobacco/Smoking Status: Tobacco use Status Tobacco use date assessed 11/06/23 11/06/23 09:53 Patient Tobacco Use Status Current everyday Tobacco 11/06/23 09:48 Tobacco use type Cigarette 11/06/23 09:48 e-Cigarette/Vaping Use Never Used 11/06/23 09:48 PHQ-9: PHQ-9 Score PHQ-9: Total score 5 11/06/23 10:06 Depression Screening Interpretation: Negative Thrive Assessment: Date of Thrive Assessment Date Thrive assessed 11/06/23 11/06/23 10:02 Currently or been in a relationship where the following occur: no concerns reported Const General: cooperative, comfortable and no acute distress Orientation/consciousness: patient oriented x3 HENMT Head: Yes normocephalic Eyes General: appearance normal, both eyes and all related structures Neck Neck: Yes supple Resp Effort & Inspection: normal respiratory effort, no cough and no stridor Cardio Rhythm: regular rhythm Heart sounds: S1 normal heart sound present and S2 normal heart sound present Skin General skin exam: turgor normal Neuro General: patient oriented x3, tone normal and moves all extremities Extrem Right lower extremity: no edema Left lower extremity: no edema Assessment and Plan Assessment & Plan (1) Feeling unwell: Code(s): R68.89 - Other general symptoms and signs (2) Degenerative joint disease (DJD) of lumbar spine: Code(s): M47.816 - Spondylosis without myelopathy or radiculopathy, lumbar region Qualifiers: Spinal osteoarthritis complication: without myelopathy or radiculopathy Qualified Code(s): M47.816 - Spondylosis without myelopathy or radiculopathy, lumbar region (3) Dysuria: Code(s): R30.0 - Dysuria (4) Diabetes 1.5, managed as type 2: Code(s): E13.9 - Other specified diabetes mellitus without complications (5) Anxiety, generalized: Code(s): F41.1 - Generalized anxiety disorder (6) Lipid disorder: Code(s): E78.9 - Disorder of lipoprotein metabolism, unspecified (7) Difficulty sleeping: Code(s): G47.9 - Sleep disorder, unspecified (8) History of bladder cancer: Code(s): Z85.51 - Personal history of malignant neoplasm of bladder (9) Tobacco dependence: Code(s): F17.200 - Nicotine dependence, unspecified, uncomplicated Plan Patient is 68-year-old female came in today for her regular 3 month follow-up appointment Patient has been taking Bactrim for urinary tract infection and has taken 5 days already She is complaining of feeling tired and weakness since she started the antibiotic, she has not sure but baby before that There is no nausea vomiting headache diarrhea abdominal pain I have told her to stop Bactrim, we will be doing urinalysis again today She is established with a urologist as well and has upcoming appointment Saturday next week History of papillary urothelial carcinoma However cystoscopy result that was done 12/11/2022 did not show any cancer cells She also have history of renal calculi External hemorrhoids: Stable Continued to smoke little less than half a pack a day, patient says that she is aware and is trying to quit Using albuterol inhaler as needed Patient also suffers from lumbar pain, she requested handicap placard which I did filled for her but it was declined as there is not enough information Last time she had x-ray lumbar spine was 2014, I have ordered another x-ray to update. Once x-ray report is available I can assist with handicap placard Her pain is located in lumbar spine and is nonradiating however patient is unable to climb to many stairs and walk long distance without stopping Diabetes mellitus: Patient had labs recently her A1c is 6.4 Her blood pressure is running low as well however she is drinking plenty of water Anxiety is stable she is on lorazepam 0.5 mg as needed Labs done recently reviewed LDL is stable, she is to continue simvastatin 20 mg daily and fenofibrate for elevated triglycerides. Medication list reviewed, patient was given chance to ask questions. We will set up another visit in 7 days to see how she is feeling To go over x-ray report and to fill handicap placard forms Orders: Orders XR lumbar spine 2-3V Today M47.816 - Spondylosis without myelopathy or radiculopathy, lumbar region UA CC w/rflx Micro + Cult Today R30.0 - Dysuria Coding Level of Care Code Est Pt Level 5 (93545) Complex EM visit Add On G2211 Diagnoses Feeling unwell R68.89 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 complication: without myelopathy or radiculopathy Dysuria R30.0 Diabetes 1.5, managed as type 2 E13.9 Anxiety, generalized F41.1 Lipid disorder E78.9 Difficulty sleeping G47.9 History of bladder cancer Z85.51 Tobacco dependence F17.200 Additional Codes HARSHIL-7 Assessment Billing - HARSHIL-7 Assessment Tool: HARSHIL-7 Assessment 29534 ([id number]) Comment 46 minutes spent in care of this patient
== END 2023-11-06 13:28 | disposition home or self-care (01) ==
PROVIDERS: PCP Internal Medicine; Visit Provider Internal Medicine
DX: R68.89 Other general symptoms and signs (principal); E13.9 Other specified diabetes mellitus without complications; M47.816 Spondylosis without myelopathy or radiculopathy, lumbar region; R30.0 Dysuria; F41.1 Generalized anxiety disorder; E78.9 Disorder of lipoprotein metabolism, unspecified; G47.9 Sleep disorder, unspecified; Z85.51 Personal history of malignant neoplasm of bladder; F17.200 Nicotine dependence, unspecified, uncomplicated
CPT/HCPCS: 99215; G2211

== ENCOUNTER 2023-11-06 10:23 | Outpatient (REF) | payer MEDICARE, OTHER, SELFPAY ==
--- NOTE | ~2023-11-06 | XR_ITS ---
EXAMINATION: XR LUMBOSACRAL SPINE CLINICAL INFORMATION: Spondylosis without myelopathy or radiculopathy lumbar region. COMPARISON: 06/14/2014. TECHNIQUE: Three views of the lumbosacral spine. FINDINGS: Dextroscoliosis of the lumbar spine. The bones are diffusely demineralized. Degenerative changes in the bilateral sacroiliac joints. Multiple calcifications in the right upper quadrant likely correlate with gallstones seen on CT urogram of December 05, 2022 and were not appreciated on KUB of 09/01/2021. Facet arthritis in the lower lumbar spine. Atherosclerotic aortoiliac calcifications. Multilevel lumbar spondylosis with loss of disc space height most notable at L5-S1. XR/XR lumbar spine 2-3V IMPRESSION: 1. Multilevel lumbar spondylosis most notable at L5-S1. 2. Facet arthritis in the lower lumbar spine. 3. Multiple calcifications in the right upper quadrant likely correlate with gallstones seen on CT urogram of December 05, 2022 and were not appreciated on KUB of 09/01/2021.
[2023-11-06 13:50] LABS: Appearance Urine Clear; Color Urine Yellow; Glucose Urine UA Negative (Negative); Leukocyte Esterase Urine Negative (Negative); Nitrite Urine Negative (Negative); PH 5.5 (5.0-9.0); Specific Gravity - Urine 1.015 (1.005-1.025); Urine Blood Negative (Negative); Urine Ketones Negative (Negative); Urine Protein Negative (Neg-Trace)
== END 2023-11-06 10:24 | disposition home or self-care (01) ==
LOC: HO.HMGCX 10:23
PROVIDERS: PCP Internal Medicine; Visit Provider Internal Medicine
DX: M47.816 Spondylosis without myelopathy or radiculopathy, lumbar region (principal); R30.0 Dysuria
CPT/HCPCS: 72100; 81003

== ENCOUNTER 2023-11-11 09:16 | Outpatient (AMB) | payer MEDICARE, OTHER, SELFPAY ==
--- NOTE | 2023-11-11 09:37 | A.OFFVIS_ITS ---
Intake Visit Reasons: cysto/US Intake Note: Patient presents today for a CYSTOSCOPY Procedure: Meds- Pyridium (patient completed course of treatment) Allergies to Antibiotic- Levofloxacin Blood Thinner- Aspirin Disposable Uro-G HD Cystoscope Cannula: Lot: [id number] Exp: 05/28/2026 Associate Store Manager Required: No Accompanied by: Self / Same As Patient Allergies levofloxacin [From LEVAQUIN] Allergy (Intermediate, Verified 11/11/23 09:37) RED LINE UP ARM FROM IV SITE, redness, itching, swelling barium sulfate Adverse Reaction (Intermediate, Verified 11/11/23 09:37) agitation varenicline Adverse Reaction (Intermediate, Verified 11/11/23 09:37) agitation HPI Comments Details: 11/11/23--Jeimy Gaytan is a 68-year-old female with history of bladder cancer---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 She had cystoscopy with random bladder biopsies 12/11/2022-pathology benign urothelial tissue. She is here for surveillance 6 month office cystoscopy. She denies episode of gross hematuria. She did have a UTI in August, and again was seen on 11/01/2023 for UTI symptoms and treated with a 5 day course of Bactrim DS b.i.d.. The patient states that she has a hemorrhoid and notices intermittent fecal leakage, which may be contributing to the recurrent UTIs. The patient states that she used estrogen cream in the past which did not help. Discussed renal ultrasound-10/22/2023 was within normal limits no renal calculi visualized. Cystoscopy findings: Erythematous changes, consistent with cystitis follicularis, no suspicious bladder lesions visualized. Discussed therapeutic plan Macrobid b.i.d. for 5 days and continued suppressive therapy for 90 days of Macrobid 100 mg daily. Review of chart: 05/10/2023? 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 She originally presented due to gross hematuria. She is s/p Cystoscopy bladder biopsies on 12/11/2022, path results were benign. 05/10/23--Cystoscopy findings: WNL, no suspicious bladder lesions visualized She has had CAT scan of the kidney in the past which showed kidney stones and renal cysts which meets criteria of simple benign cysts. [facility] Medical History Fatty liver Bruit (arterial) Hx of lipoma Arthritis Anxiety Renal calculi Family history of colon cancer in father Family history of throat cancer Endometriosis Hyperlipidemia 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 Maternal Grandfather No problems noted. Paternal Grandfather No problems noted. Paternal Grandmother No problems noted. Sister No problems noted. Sister No problems noted. Son No problems noted. Daughter No problems noted. Daughter Substance use disorder Social History Housing: House Alcohol intake: never Patient Tobacco Use Status: Current everyday Tobacco user Tobacco use type: Cigarette Cigarette Packs Per Day: 0.5 Cigarettes Per Day: 10 e-Cigarette/Vaping Use: Never Used Second Hand Smoke Exposure: Yes service: No Current occupational status: retired Cognitive needs: No Hearing needs: No Vision needs: Yes Review of Systems Const All systems reviewed & are unremarkable except as noted in HPI and below Reports no additional complaints Eyes Reports no additional complaints ENT Reports no additional complaints Card Reports no additional complaints Resp Reports no additional complaints GI Reports no additional complaints Reports as per HPI Musc Reports no additional complaints Skin/Breast Reports system reviewed and no additional complaints, except as documented Neuro Reports no additional complaints Psych Reports no additional complaints Endo Reports no additional complaints Cristian/Lymph Reports no additional complaints Aller/Immun Reports no additional complaints Office Procedures Cystoscopy Consent Discussed risk and benefit or proposed procedure with the patient. Information consent for procedure given to the patient. Discussed technical aspects, risks, benefits and alternatives in full. Addressed all of the patient's questions and concerns regarding the procedure. The patient demonstrated knowledge and understanding. They wish to proceed with this procedure. Preparation The patient was prepped in the usual manner. A experimental physicist was present and in the room. Genitalia was prepped with betadine solution in a sterile manner. Lidocaine Jelly 2% was placed into the urethra and 16Fr flexible Olympus cystoscope was inserted into the meatus after adequate lubrication. Procedure Time out per protocol performed. Bladder Inspection Bladder Inspection: The bladder was inspected in its entirety with utilization retroflexion displaying: Tumor(s): No suspicious bladder lesions visualized Trabeculation: NA Mucosal Erthema: Erythematous changes, cystitis follicularis Orifices: normal shape and position Urethra: normal Cystoscopy findings: Erythematous changes, consistent with cystitis follicularis, no suspicious bladder lesions visualized [id number] DISPOSABLE SCOPE URO-G FLEXIBLE SCOPE Procedure code (CPT) selection complete Office Meds lidocaine HCl 2 % mucosal jelly in applicator Performing Provider: David Siu MD Performing Location: [facility] [place] [facility] Administered by: Gio Castañeda LPN on 11/11/23 09:53 Dose Route Admin Location Dispensed Lot Number Expiration Date ND Programs Manager 10 mL intra-urethral 20 mL nitrofurantoin monohydrate/macrocrystals 100 mg capsule Performing Provider: David Siu MD Performing Location: [facility] [place] [facility] Administered by: Gio Castañeda LPN on 11/11/23 09:53 Dose Route Admin Location Dispensed Lot Number Expiration Date NDC Programs Manager 100 mg PO 1 cap naproxen 500 mg tablet Performing Provider: David Siu MD Performing Location: [facility] [place] [facility] Administered by: Gio Castañeda LPN on 11/11/23 09:53 Dose Route Admin Location Dispensed Lot Number Expiration Date NDC Programs Manager 500 mg PO 1 tab Results Reviewed Results Reviewed: Date of Service: 10/22/23 EXAMINATION: US RETROPERITONEAL LIMITED (RENAL ONLY) CLINICAL INFORMATION: Calculus of kidney. COMPARISON: CT urogram 12/05/2022. Ultrasound renal 09/25/2021. X-ray abdomen 09/01/2021. TECHNIQUE: Real-time imaging of the kidneys. Limited visualization due to bowel gas. FINDINGS: RIGHT KIDNEY: 10.5 x 4.3 x 6.4 cm (SAG x AP x TRV). No hydronephrosis. No renal calculi. Renal cortical thickness is normal. Limited visualization. LEFT KIDNEY: 9.9 x 4.9 x 6.6 cm (SAG x AP x TRV). No hydronephrosis. No renal calculi. Renal cortical thickness is normal. Limited visualization. US/US renal BI IMPRESSION: No hydronephrosis. No renal calculi. Collected: 12/11/22 Location: [facility] Received: 12/11/22 Diagnosis A. Bladder, posterior wall, biopsy: Benign urothelial mucosa and muscularis propria; negative for malignancy. B. Bladder, left lateral wall, biopsy: Benign urothelial mucosa and muscularis propria; negative for malignancy. C. Bladder, right lateral wall, biopsy: Benign urothelial mucosa and muscularis propria; negative for malignancy. D. Bladder, dome, biopsy: Benign urothelial mucosa and muscularis propria; negative for malignancy. Collected: 10/14/22 Status: COMP Req#: [id number] Received: 10/14/22 Source: [facility] Sp Desc: Urine cronin Subm Dr: Josh Echevarria MD Ordered: Urine Culture Procedure Result Verified Urine Culture Final 10/16/22 Organism 1 Escherichia coli Quant > 100,000 cfu/mL E coli M.I.C. RX --------- --- Ampicillin <=2 S Ceftriaxone <=0.25 S Gentamicin <=1 S Levofloxacin <=0.12 S Nitrofurantoin <=16 S Trimethoprim/Sulfamethoxazole <=20 S Assessment & Plan Assessment & Plan (1) Renal cyst: Code(s): N28.1 - Cyst of kidney, acquired Category: Medical (2) History of bladder cancer: Code(s): Z85.51 - Personal history of malignant neoplasm of bladder Category: Medical (3) Recurrent UTI: Code(s): N39.0 - Urinary tract infection, site not specified Category: Medical Plan Cystoscopy findings: Erythematous changes, consistent with cystitis follicularis, no suspicious bladder lesions visualized. Discussed therapeutic plan Macrobid b.i.d. for 5 days and continued suppressive therapy for 90 days of Macrobid 100 mg daily. Orders: Orders AMB Cystoscopy Today C67.9 - Malignant neoplasm of bladder, unspecified, N20.0 - Calculus of kidney, N30.00 - Acute cystitis without hematuria, N39.0 - Urinary tract infection, site not specified, R30.0 - Dysuria Medications: New nitrofurantoin monohyd/m-cryst 100 mg (Macrobid) must administer with a meal/food, take macrobid 100mg twice a day for 5 days then continue Macrobid one capsule daily 100 mg PO BID 100 caps 0RF Patient Instructions: The patient had an opportunity to ask questions regarding treatment plan. The patient expressed understanding and agreement with the above treatment plan. The patient is aware they should contact our office by phone for worsening of their current condition or the appearance of new symptoms. Compliance is encouraged with any medications and followup testing that is ordered. It is a privilege to be allowed the opportunity to participate in the urologic care of your patient. If you have any questions or concerns regarding treatment for the above conditions please do not hesitate to contact me. The office telephone contact is [phone]. This note is constructed in part using voice recognition software. While every effort has been made to ensure accuracy medical transcriptionist errors may have been included. Yours sincerely, David Siu MD Coding Level of Care Code Est Pt Level 4 (99427) Diagnoses Renal cyst N28.1 History of bladder cancer Z85.51 Recurrent UTI N39.0 CPT Codes Cystoscopy - CPT: 68540-[id number] ([id number])
== END 2023-11-11 11:08 | disposition home or self-care (01) ==
PROVIDERS: PCP Internal Medicine; Visit Provider Urology
DX: N30.00 Acute cystitis without hematuria (principal); Z85.51 Personal history of malignant neoplasm of bladder
CPT/HCPCS: 52000; 99214

== ENCOUNTER → 2023-11-11 09:16 | Outpatient (BNVA) | payer MEDICARE, OTHER, SELFPAY | PROVIDERS: PCP Internal Medicine; Visit Provider Urology | DX: N28.1 Cyst of kidney, acquired (principal); N39.0 Urinary tract infection, site not specified; Z85.51 Personal history of malignant neoplasm of bladder | CPT/HCPCS: 52000; 99212 ==

== ENCOUNTER 2023-11-12 13:45 | Outpatient (AMB) | payer MEDICARE, OTHER, SELFPAY ==
[2023-11-12 13:54] VITALS: BP 106/52; PULSE 96; O2SAT 99
--- NOTE | 2023-11-12 13:54 | A.OFFPC_ITS ---
Vital Signs 11/12/23 13:54 Weight 152 lb 4 oz BP 106/52 L Blood Pressure Location Rt brachial Position Sitting Pulse 96 Pulse Source Pulse Oximeter Pulse Oximetry (%) 99 Oxygen Delivery Method Room Air Intake Visit Reasons: 1 week follow up Allergies levofloxacin [From LEVAQUIN] Allergy (Intermediate, Verified 11/12/23 13:57) RED LINE UP ARM FROM IV SITE, redness, itching, swelling barium sulfate Adverse Reaction (Intermediate, Verified 11/12/23 13:57) agitation varenicline Adverse Reaction (Intermediate, Verified 11/12/23 13:57) agitation Medication List - Last Reconciled 11/12/23 by Maciel Cardona MD albuterol sulfate 90 mcg/actuation (Ventolin HFA) 1 inh inhalation QID PRN 30 days aspirin (Adult Aspirin Regimen) 81 mg PO DAILY bimatoprost 0.01% 1 drp ophthalmic (eye) BEDTIME brimonidine 0.2% 1 drp ophthalmic (eye) BID cholecalciferol (vitamin D3) 25 mcg PO DAILY dorzolamide 2% 1 drp ophthalmic (eye) DAILY fenofibrate 160 mg PO DAILY 90 days lorazepam 0.5 mg PO DAILY PRN 90 days metformin 500 mg PO BID 90 days multivitamin 1 tab PO DAILY nitrofurantoin monohyd/m-cryst 100 mg (Macrobid) 100 mg PO BID oxycodone 5 mg PO ONCE PRN 30 days simvastatin 20 mg PO DAILY 90 days Tobacco use date assessed: 11/12/23 Fall risk assessment: No Falls in past year Last assessed Fall Risk: 11/12/23 Dental Screening Dental Screen Date: 11/12/23 Did you have a dental visit in the last 12 months?: No Did you have a dental problem in the last 6 months where you did not have access to dental care?: No Was dental information given to patient?: No HPI 1 week follow up HPI Details One-week follow-up appointment Patient was evaluated by her urologist She had a cystoscopy done and was told that her bladder lining is still seated with bacteria She was given 5 days of nitrofurantoin and then she is supposed to take 1 capsule daily for next 3 months Lumbar spine x-ray shows moderate DJD with facet arthropathy Handicap placard forms were filled for the patient Labs done in September reviewed again hemoglobin A1c was 6.4% Patient will return in 3 months for follow-up appointment COUNTS INCLUDE 234 BEDS AT THE [facility] Medical History Fatty liver Bruit (arterial) Hx of lipoma Arthritis Anxiety Renal calculi Family history of colon cancer in father Family history of throat cancer Endometriosis Hyperlipidemia 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 Maternal Grandfather No problems noted. Paternal Grandfather No problems noted. Paternal Grandmother No problems noted. Sister No problems noted. Sister No problems noted. Son No problems noted. Daughter No problems noted. Daughter Substance use disorder Social History Housing: House Alcohol intake: never Patient Tobacco Use Status: Current everyday Tobacco user Tobacco use type: Cigarette Cigarette Packs Per Day: 0.5 Cigarettes Per Day: 10 e-Cigarette/Vaping Use: Never Used Second Hand Smoke Exposure: Yes service: No Current occupational status: retired Cognitive needs: No Hearing needs: No Vision needs: Yes Questionnaire Thrive Questionnaire Date Thrive assessed: 11/06/23 AUDIT C Alcohol Use Questionnaire (AUDIT-C) 1. How often do you have a drink containing alcohol?: Never 3. How often do you have six or more drinks on one occasion?: Never Total Score: 0 Score Reviewed/Action Taken: Yes HARSHIL-7 AMB Questionnaire HARSHIL-7 Date HARSHIL - 7 assessed: 11/06/23 Source: Developed by Drs. Jian Contreras, Florina Almanzar, Lionel Subramanian and colleagues, with an educational hipolito from [employer]. Review of Systems Const Denies chills and Denies fever(s) ENT Denies epistaxis and Denies nasal discharge Card Denies chest pain Resp Denies chest congestion, Denies cough and Denies hemoptysis GI Denies diarrhea and Denies nausea Skin/Breast Denies rash Neuro Reports no additional complaints Psych Reports no additional complaints Endo Reports no additional complaints Physical exam (Primary Care) Vital Signs: Last Vital Signs Pulse 96 11/12/23 13:54 BP 106/52 L 11/12/23 13:54 Pulse Ox 99 11/12/23 13:54 Oxygen Delivery Method Room Air 11/12/23 13:54 Tobacco/Smoking Status: Tobacco use Status Tobacco use date assessed 11/12/23 11/12/23 13:57 Patient Tobacco Use Status Current everyday Tobacco 11/12/23 13:57 Tobacco use type Cigarette 11/12/23 13:57 e-Cigarette/Vaping Use Never Used 11/12/23 13:57 Thrive Assessment: Date of Thrive Assessment Date Thrive assessed 11/06/23 11/12/23 13:57 Const General: cooperative, comfortable and no acute distress Orientation/consciousness: patient oriented x3 HENMT Head: Yes normocephalic Eyes General: appearance normal, both eyes and all related structures Neck Neck: Yes supple Resp Effort & Inspection: normal respiratory effort, no cough and no stridor Cardio Rhythm: regular rhythm Heart sounds: S1 normal heart sound present and S2 normal heart sound present Skin General skin exam: turgor normal Neuro General: patient oriented x3, tone normal and moves all extremities Extrem Right lower extremity: no edema Left lower extremity: no edema Assessment and Plan Assessment & Plan (1) Degenerative joint disease (DJD) of lumbar spine: Code(s): M47.816 - Spondylosis without myelopathy or radiculopathy, lumbar region Qualifiers: Spinal osteoarthritis complication: without myelopathy or radiculopathy Qualified Code(s): M47.816 - Spondylosis without myelopathy or radiculopathy, lumbar region (2) Facet arthropathy, lumbar: Code(s): M47.816 - Spondylosis without myelopathy or radiculopathy, lumbar region (3) Lipid disorder: Code(s): E78.9 - Disorder of lipoprotein metabolism, unspecified (4) Recurrent UTI: Code(s): N39.0 - Urinary tract infection, site not specified Plan One-week follow-up appointment Patient was evaluated by her urologist She had a cystoscopy done and was told that her bladder lining is still seated with bacteria She was given 5 days of nitrofurantoin and then she is supposed to take 1 capsule daily for next 3 months Lumbar spine x-ray shows moderate DJD with facet arthropathy Handicap placard forms were filled for the patient Labs done in September reviewed again hemoglobin A1c was 6.4% Patient will return in 3 months for follow-up appointment Coding Level of Care Code Est Pt Level 3 (91719) Diagnoses 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 complication: without myelopathy or radiculopathy Facet arthropathy, lumbar M47.816 Lipid disorder E78.9 Recurrent UTI N39.0
== END 2023-11-12 15:30 | disposition home or self-care (01) ==
PROVIDERS: PCP Internal Medicine; Visit Provider Internal Medicine
DX: M47.816 Spondylosis without myelopathy or radiculopathy, lumbar region (principal); E78.9 Disorder of lipoprotein metabolism, unspecified; N39.0 Urinary tract infection, site not specified
CPT/HCPCS: 99213

== ENCOUNTER 2024-01-07 12:18 | Outpatient (AMB) | payer MEDICARE, OTHER, SELFPAY ==
--- NOTE | 2024-01-07 12:34 | A.OFFPC_ITS ---
Vital Signs 01/07/24 12:37 Height 5 ft 5 in Weight 153 lb BMI 25.5 BP 104/60 Blood Pressure Location Rt brachial Position Sitting Pulse 74 Pulse Source Pulse Oximeter Pulse Oximetry (%) 98 Oxygen Delivery Method Room Air Intake Visit Reasons: Pre OP Cataract Allergies levofloxacin [From LEVAQUIN] Allergy (Intermediate, Verified 01/07/24 12:37) RED LINE UP ARM FROM IV SITE, redness, itching, swelling barium sulfate Adverse Reaction (Intermediate, Verified 01/07/24 12:37) agitation varenicline Adverse Reaction (Intermediate, Verified 01/07/24 12:37) agitation Medication List - Last Reconciled 01/07/24 by Maciel Cardona MD albuterol sulfate 90 mcg/actuation (Ventolin HFA) 1 inh inhalation QID PRN 30 days aspirin (Adult Aspirin Regimen) 81 mg PO DAILY bimatoprost 0.01% 1 drp ophthalmic (eye) BEDTIME brimonidine 0.2% 1 drp ophthalmic (eye) BID cholecalciferol (vitamin D3) 25 mcg PO DAILY dorzolamide 2% 1 drp ophthalmic (eye) DAILY fenofibrate 160 mg PO DAILY 90 days lorazepam 0.5 mg PO DAILY PRN 90 days metformin 500 mg PO BID 90 days multivitamin 1 tab PO DAILY nitrofurantoin monohyd/m-cryst 100 mg (Macrobid) 100 mg PO BID oxycodone 5 mg PO ONCE PRN 30 days simvastatin 20 mg PO DAILY 90 days Tobacco use date assessed: 01/07/24 Fall risk assessment: No Falls in past year Last assessed Fall Risk: 01/07/24 Dental Screening Dental Screen Date: 01/07/24 Did you have a dental visit in the last 12 months?: No Did you have a dental problem in the last 6 months where you did not have access to dental care?: No Was dental information given to patient?: Patient declined HPI Pre OP Cataract HPI Details Patient is 68-year-old female came in today for preop clearance for right eye cataract surgery on January [address] Lindsay, at [facility] Patient is doing well offer no complaints today Blood pressure is stable Labs were done 22 October, hemoglobin A1c was 6.4 % Patient has had left eye cataract surgery already and is doing well There are no signs of any respiratory infection There is no nausea vomiting no abdominal pain Patient is stable for right eye cataract surgery PFSH Medical History Fatty liver Bruit (arterial) Hx of lipoma Arthritis Anxiety Renal calculi Family history of colon cancer in father Family history of throat cancer Endometriosis Hyperlipidemia 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 Maternal Grandfather No problems noted. Paternal Grandfather No problems noted. Paternal Grandmother No problems noted. Sister No problems noted. Sister No problems noted. Son No problems noted. Daughter No problems noted. Daughter Substance use disorder Social History Housing: House Alcohol intake: never Patient Tobacco Use Status: Current everyday Tobacco user Tobacco use type: Cigarette Cigarette Packs Per Day: 0.5 Cigarettes Per Day: 10 e-Cigarette/Vaping Use: Never Used Second Hand Smoke Exposure: Yes service: No Current occupational status: retired Cognitive needs: No Hearing needs: No Vision needs: Yes Questionnaire Thrive Questionnaire Date Thrive assessed: 01/01/24 I am a: Patient What is your living situation today?: I have a steady place to live Within the past 12 months, did the food you bought not last and you didn't have the money to get more?: Never true Within the past 12 months, did you worry whether your food would run out before you got money to buy more?: Never true Do you have trouble paying for medicines?: No Do you have trouble getting transportation to medical appointments?: No Do you have trouble paying your heating and electricity bill?: No Do you have trouble taking care of your child, family member or friend?: No Do you have trouble with day-to-day activities such as bathing, preparing meals, shopping, managing finances, etc.?: No Are you currently unemployed and looking for a job?: No Are you interested in more education?: No Please select the resources that you would like help with: None Currently or been in a relationship where the following occur: I choose not to answer THRIVE Score: 0 AUDIT C Alcohol Use Questionnaire (AUDIT-C) 1. How often do you have a drink containing alcohol?: Never 2. How many drinks containing alcohol do you have on a typical day when you are drinking?: 1 or 2 3. How often do you have six or more drinks on one occasion?: Never Total Score: 0 HARSHIL-7 AMB Questionnaire HARSHIL-7 Date HARSHIL - 7 assessed: 11/06/23 Feeling nervous, anxious, or on edge: 0 = Not at all Not being able to stop or control worryin = Not at all Worrying too much about different things: 0 = Not at all Trouble relaxin = Not at all Being so restless that it is hard to sit still: 0 = Not at all Becoming easily annoyed or irritable: 0 = Not at all Feeling afraid as if something awful might happen: 0 = Not at all Total HARSHIL-7 score (0-4 normal; 5-9 mild; 10-14 moderate; 15-21 severe): 0 Source: Developed by Drs. Jian Contreras, Florina Almanzar, Lionel Subramanian and colleagues, with an educational hipolito from [employer]. Review of Systems Const Denies chills and Denies fever(s) ENT Denies epistaxis and Denies nasal discharge Card Denies chest pain Resp Denies chest congestion, Denies cough and Denies hemoptysis GI Denies diarrhea and Denies nausea Skin/Breast Denies rash Neuro Reports no additional complaints Psych Reports no additional complaints Endo Reports no additional complaints Physical exam (Primary Care) Vital Signs: Last Vital Signs Pulse 74 01/07/24 12:37 BP 104/60 01/07/24 12:37 Pulse Ox 98 01/07/24 12:37 Oxygen Delivery Method Room Air 01/07/24 12:37 BMI result Body Mass Index 25.5 Tobacco/Smoking Status: Tobacco use Status Tobacco use date assessed 01/07/24 01/07/24 12:40 Patient Tobacco Use Status Current everyday Tobacco 01/07/24 12:34 Tobacco use type Cigarette 01/07/24 12:34 e-Cigarette/Vaping Use Never Used 01/07/24 12:34 Thrive Assessment: Date of Thrive Assessment Date Thrive assessed 01/01/24 01/07/24 12:34 Currently or been in a relationship where the following occur: I choose not to answer Const General: cooperative, comfortable and no acute distress Orientation/consciousness: patient oriented x3 HENMT Head: Yes normocephalic Eyes General: appearance normal, both eyes and all related structures Neck Neck: Yes supple Resp Effort & Inspection: normal respiratory effort, no cough and no stridor Cardio Rhythm: regular rhythm Heart sounds: S1 normal heart sound present and S2 normal heart sound present Skin General skin exam: turgor normal Neuro General: patient oriented x3, tone normal and moves all extremities Extrem Right lower extremity: no edema Left lower extremity: no edema Assessment and Plan Assessment & Plan (1) Pre-op evaluation: Code(s): Z01.818 - Encounter for other preprocedural examination (2) Cataract, right eye: Code(s): H26.9 - Unspecified cataract Qualifiers: Cataract type: age-related Age-related cataract type: unspecified Qualified Code(s): H25.9 - Unspecified age-related cataract (3) Diabetes 1.5, managed as type 2: Code(s): E13.9 - Other specified diabetes mellitus without complications Plan Patient is 68-year-old female came in today for preop clearance for right eye cataract surgery on January [address] Lindsay, at [facility] Patient is doing well offer no complaints today Blood pressure is stable Labs were done 22 October, hemoglobin A1c was 6.4 % Patient has had left eye cataract surgery already and is doing well There are no signs of any respiratory infection There is no nausea vomiting no abdominal pain Patient is stable for right eye cataract surgery Coding Level of Care Code Est Pt Level 3 (91279) Diagnoses Pre-op evaluation Z01.818 Senile cataract of right eye, unspecified age-related cataract type H25.9 Cataract type: age-related Age-related cataract type: unspecified Diabetes 1.5, managed as type 2 E13.9
[2024-01-07 12:37] VITALS: BP 104/60; PULSE 74; O2SAT 98; BMI 25.5
== END 2024-01-07 14:59 | disposition home or self-care (01) ==
PROVIDERS: PCP Internal Medicine; Visit Provider Internal Medicine
DX: Z01.818 Encounter for other preprocedural examination (principal); H25.9 Unspecified age-related cataract; E13.9 Other specified diabetes mellitus without complications
CPT/HCPCS: 99213

== ENCOUNTER 2024-02-11 08:43 | Outpatient (AMB) | payer MEDICARE, OTHER, SELFPAY ==
[2024-02-11 08:47] VITALS: BP 104/62; PULSE 74; O2SAT 98; BMI 25.4
--- NOTE | 2024-02-11 08:47 | AM.OFFVISMDC ---
Intake Vital Signs 02/11/24 08:47 Height 5 ft 5 in Weight 152 lb 6 oz BMI 25.4 BP 104/62 Blood Pressure Location Lt brachial Position Sitting Pulse 74 Pulse Source Pulse Oximeter Pulse Oximetry (%) 98 Oxygen Delivery Method Room Air Intake Visit Reasons: [facility] G0439 Allergies levofloxacin [From LEVAQUIN] Allergy (Intermediate, Verified 02/11/24 08:50) RED LINE UP ARM FROM IV SITE, redness, itching, swelling barium sulfate Adverse Reaction (Intermediate, Verified 02/11/24 08:50) agitation varenicline Adverse Reaction (Intermediate, Verified 02/11/24 08:50) agitation Medication List - Last Reconciled 02/11/24 by Maciel Cardona MD albuterol sulfate 90 mcg/actuation (Ventolin HFA) 1 inh inhalation QID PRN 30 days aspirin (Adult Aspirin Regimen) 81 mg PO DAILY bimatoprost 0.01% 1 drp ophthalmic (eye) BEDTIME brimonidine 0.2% 1 drp ophthalmic (eye) BID cholecalciferol (vitamin D3) 25 mcg PO DAILY dorzolamide 2% 1 drp ophthalmic (eye) DAILY fenofibrate 160 mg PO DAILY 90 days lorazepam 0.5 mg PO DAILY PRN 90 days metformin 500 mg PO BID 90 days multivitamin 1 tab PO DAILY oxycodone 5 mg PO ONCE PRN 30 days simvastatin 20 mg PO DAILY 90 days Do you need a note to return to daycare/school/sports/work: No HPI [facility] G0439 HPI Details Patient is doing well, requesting pain medication refill which I have sent for her Patient have left-sided sciatica which flares up every now and then, she tells me that she tried to avoid the medication And only take it when she can not take the pain. Taking all her medications as prescribed Medication list reviewed Vital signs stable Need to have fasting labs before next visit in 3 months. HPI Comments History of Present Illness Details AWV Medical/social history reviewed Past medical history reviewed [place] of care / care team list updated Surgical/ hospitalization history reviewed Current medications including OTC and supplements reviewed Family history reviewed Tobacco controlled form updated Alcohol use form updated Illicit drug use in social history reviewed Current diagnosis of depression ?screening updated Appropriate PHQ 2/PHQ-9 completed . Vital signs reviewed Alcohol tobacco drug use reviewed and discussed . MMSE completed . ? Fall risk: ?Assessed Fall history: ?None Have you had any falls with injury in the past year?? No Have you had 2 or more falls in the past year?? No Fall risk assessment completed Home safety discussed with the patient Functional ability assessed and discussed and documented Activities of daily living reviewed and appropriate actions taken . HRA filled out by the patient and reviewed by provider and scanned . Appropriate written screening schedule established . Any health advise needed provided . Advance care planning discussed with the patient , necessary paperwork filled Examination IPPE/AWE: Balance intact Romberg intact Tandem walk intact walk-in turn intact rise from sit to stand intact . ?Hearing ?whisper test pass . Medication list reviewed, patient is stable on medications All other providers patient is seeing discussed and noted . [facility] Medical History Fatty liver Bruit (arterial) Hx of lipoma Arthritis Anxiety Renal calculi Family history of colon cancer in father Family history of throat cancer Endometriosis Hyperlipidemia 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 Maternal Grandfather No problems noted. Paternal Grandfather No problems noted. Paternal Grandmother No problems noted. Sister No problems noted. Sister No problems noted. Son No problems noted. Daughter No problems noted. Daughter Substance use disorder Social History Housing: House Alcohol intake: never Patient Tobacco Use Status: Current everyday Tobacco user Tobacco use type: Cigarette Cigarette Packs Per Day: 0.5 Cigarettes Per Day: 10 e-Cigarette/Vaping Use: Never Used Second Hand Smoke Exposure: Yes service: No Current occupational status: retired Cognitive needs: No Hearing needs: No Vision needs: Yes Questionnaire Medicare Wellness Checkup What [age] 65-69 What gender do you identify with?: female During the past 4 weeks, how much have you been bothered by emotional problems such as feeling anxious, depressed, irritable, sad or downhearted, and blue?: slightly During the past 4 weeks, has your physical & emotional health limited your social activities with family, friends, neighbors, or groups?: slightly During the past 4 weeks, how much bodily pain have you generally had?: moderate pain During the past 4 weeks, was someone available to help you if you needed & wanted help?: yes, a little During the past 4 weeks, what was the hardest physical activity you could do for at least 2 minutes?: light Can you get to places out of walking distance without help? (For eg., can you travel alone on buses, taxis or drive your car?): Yes Can you go shopping for groceries or clothes without someone's help?: Yes Can you prepare your own meals?: Yes Can you do your housework without help?: No Because of any health problems, do you need the help of another person with your personal care needs such as eating, bathing, dressing or getting around the house?: No Can you handle your own money without help?: Yes During the past 4 weeks, how would you rate your health in general?: good During the past 4 weeks how have things been going for you?: good & bad parts about equal Are you having difficulties driving your car?: no Do you always fasten your seat belt when you are in a car?: yes, usually During past 4 weeks, have you been bothered by the following: never: Falling or dizzy when standing up, Sexual problems?, Trouble eating well?, Teeth or denture problems? and Problems using the telephone? and sometimes: Tiredness or fatigue? Have you fallen 2 or more times in the past year?: No Are you afraid of falling?: No Are you a smoker?: yes, and I might quit During the past 4 weeks, how many drinks of wine, beer, or other alcoholic beverages did you have?: no alcohol at all Do you exercise for about 20 minutes 3 or more times a week?: no, I usually do not exercise this much Have you been given information to help with the following?: no: Hazards in your house that might hurt you? How often do you have trouble taking medicines the way you have been told to take them?: I always take medicine as prescribed How confident are you that you can control & manage most of your health problems?: very confident What is your race?: White Mini Mental State Exam (MMSE) Orientation What is the (year) (season) (date) (day) (month)?: year, season, date, day and month Where are we (state) (county) (town or city) (hospital) (floor)?: state, county, town or city, hospital/clinic and floor Score Score: 10 Activity of Daily Living Bathing - sponge bath, tub bath or shower: receives no assistance (gets in/out by self, if usual bathing means Dressing - getting clothes from closets & drawers, including inner/outer garments & fasteners.: gets clothes & gets completely dressed without help Toileting - going to the 'toilet room' for urine/bowel elimination & cleaning self/arranging clothes: goes to toilet room, cleans self, arranges clothes without help Transfer: moves in & out of bed and chair without help (may use support object) Continence: controls urination/bowel movements completely by self Feeding: feeds self without help Total Score: 0 Information obtained from: patient Using telephone: independent Traveling: independent Shopping: independent Preparing meals: independent Housework: needs assistance Taking medicine: independent Managing money: independent PHQ-9 Over the last 2 weeks, how often have you been bothered by any of the following problems? 1. Little interest or pleasure in doing things: several days 2. Feeling down, depressed, or hopeless: several days 3. Trouble falling or staying asleep, or sleeping too much: several days 4. Feeling tired or having little energy: more than half the days 5. Poor appetite or overeating: not at all 6. Feeling bad about yourself - or that you are a failure or have let yourself or your family down: not at all 7. Trouble concentrating on things, such as reading the newspaper or watching television: not at all 8. Moving or speaking so slowly that other people could have noticed. Or the opposite - being so fidgety or restless that you have been moving around a lot more than usual: not at all 9. Thoughts that you would be better off or of hurting yourself in some way: not at all Total score: 5 Depression Screening Interpretation: Negative Depression Screening Done: Yes 73050 - PHQ-9 Billing: Yes Source: Developed by DrsYuliana Contreras, Florina Almanzar, Lionel Subramanian and colleagues, with an educational hipolito from [employer] Review of Systems Const All systems reviewed & are unremarkable except as noted in HPI and below Physical Exam Vital Signs: Last Vital Signs Pulse 74 02/11/24 08:47 BP 104/62 02/11/24 08:47 Pulse Ox 98 02/11/24 08:47 Oxygen Delivery Method Room Air 02/11/24 08:47 BMI result Body Mass Index 25.4 Const General: no acute distress Orientation/consciousness: patient oriented x3 Eyes General: appearance normal, both eyes and all related structures Resp Effort & Inspection: normal respiratory effort and able to speak in complete sentences Neuro General: patient oriented x3 Psych Mental Status: mental status grossly normal Assessment & Plan Assessment & Plan (1) Medicare annual wellness visit, initial: Code(s): Z00.00 - Encounter for general adult medical examination without abnormal findings (2) Diabetes 1.5, managed as type 2: Code(s): E13.9 - Other specified diabetes mellitus without complications (3) Lipid disorder: Code(s): E78.9 - Disorder of lipoprotein metabolism, unspecified (4) Left lumbar radiculitis: Code(s): M54.16 - Radiculopathy, lumbar region (5) Anxiety, generalized: Code(s): F41.1 - Generalized anxiety disorder Plan Patient is doing well, requesting pain medication refill which I have sent for her Patient have left-sided sciatica which flares up every now and then, she tells me that she tried to avoid the medication And only take it when she can not take the pain. Need to have fasting labs before next visit in 3 months. Orders: Orders Comprehensive [place]. Panel Fast Today E13.9 - Other specified diabetes mellitus without complications, E78.9 - Disorder of lipoprotein metabolism, unspecified, F41.1 - Generalized anxiety disorder, M54.16 - Radiculopathy, lumbar region Hemoglobin A1c Today E13.9 - Other specified diabetes mellitus without complications, E78.9 - Disorder of lipoprotein metabolism, unspecified, F41.1 - Generalized anxiety disorder, M54.16 - Radiculopathy, lumbar region Microalbumin, Random (w Creat) Today E13.9 - Other specified diabetes mellitus without complications, E78.9 - Disorder of lipoprotein metabolism, unspecified, F41.1 - Generalized anxiety disorder, M54.16 - Radiculopathy, lumbar region Complete Blood Count Auto Diff Today E13.9 - Other specified diabetes mellitus without complications, E78.9 - Disorder of lipoprotein metabolism, unspecified, F41.1 - Generalized anxiety disorder, M54.16 - Radiculopathy, lumbar region Lipid Panel Today E13.9 - Other specified diabetes mellitus without complications, E78.9 - Disorder of lipoprotein metabolism, unspecified, F41.1 - Generalized anxiety disorder, M54.16 - Radiculopathy, lumbar region Medications: Refilled oxycodone partial refill permitted 5 mg PO ONCE PRN 30 tabs 0RF pain 30 days Quality Reporting (2019) Depression/Bipolar (159/160/161/177) PHQ-9: Total score: 5 Coding Level of Care Code Medicare First (G0438) Est Pt Level 3 (54080) Diagnoses Medicare annual wellness visit, initial Z00.00 Diabetes 1.5, managed as type 2 E13.9 Lipid disorder E78.9 Left lumbar radiculitis M54.16 Anxiety, generalized F41.1
== END 2024-02-11 09:19 | disposition home or self-care (01) ==
PROVIDERS: PCP Internal Medicine; Visit Provider Internal Medicine
DX: Z00.00 Encounter for general adult medical examination without abnormal findings (principal); E13.9 Other specified diabetes mellitus without complications; E78.9 Disorder of lipoprotein metabolism, unspecified; M54.16 Radiculopathy, lumbar region; F41.1 Generalized anxiety disorder

== ENCOUNTER → 2024-02-11 08:43 | Outpatient (BNVA) | payer MEDICARE, OTHER, SELFPAY | PROVIDERS: PCP Internal Medicine; Visit Provider Internal Medicine | DX: E13.9 Other specified diabetes mellitus without complications (principal); E78.9 Disorder of lipoprotein metabolism, unspecified; M54.16 Radiculopathy, lumbar region; F41.1 Generalized anxiety disorder; Z79.899 Other long term (current) drug therapy | CPT/HCPCS: 99212 ==

== ENCOUNTER 2024-05-04 06:47 | Outpatient (REF) | payer MEDICARE, OTHER, SELFPAY ==
[2024-05-04 10:32] LABS: MANUAL DIFF FLAG NO
[2024-05-04 10:34] LABS: Basophils Absolute Auto 0.1 X10*3/uL (0.0-0.2); Basophils Percent Auto 0.7 % (0-2); Eosinophils Absolute Auto 0.1 X10*3/uL (0.0-0.4); Eosinophils Percent Auto 1.7 % (0-4); Hematocrit 48.5 % (37.0-47.0); Hemoglobin 16.1 g/dl (12.0-16.0); Imm Gran Abs Auto 0.02 X10*3/uL (0.00-0.03); Imm Gran Pct Auto 0.2 % (0.0-0.4); Lymphocytes Absolute Auto 2.9 X10*3/uL (1.2-4.9); Lymphocytes Percent Auto 34.2 % (20-40); Mean Corpuscular HGB Conc 33.2 g/dl (31.0-35.0); Mean Corpuscular Hemoglobin 32.5 pg (27.0-33.0); Mean Corpuscular Volume 97.8 fL (80.0-98.0); Mean Platelet Volume 11.1 fL (9.4-12.3); Monocytes Absolute Auto 0.6 X10*3/uL (0.1-1.2); Monocytes Percent Auto 7.3 % (2-11); Neutrophils Absolute Auto 4.7 x10*3/uL (2.0-8.3); Neutrophils Percent Auto 55.9 % (45-73); Platelet Count 243 X10*3/uL (160-400); Red Blood Count 4.96 X10*6/uL (4.20-5.50); Red Cell Distribution Width 12.5 % (11.0-16.0); White Blood Count 8.5 X10*3/uL (4.8-10.8)
[2024-05-04 10:48] LABS: Creatinine Urine 65.71 mg/dL; Microalbum/Creatinine Ratio Ur 10.6 ug/mg cr (<30)
[2024-05-04 10:48] LABS: Estimated Average Glucose 157 mg/dL; Hemoglobin A1C 218.6676 umol/L; Hemoglobin A1c % 7.1 % (<6.0); Total Hemoglobin (HGBA1C) 4041.9404 umol/L
[2024-05-04 10:59] LABS: Alanine Aminotransferase 35 U/L (0-31); Albumin Level 4.7 g/dL (3.5-5.0); Alkaline Phosphatase 50 U/L (39-117); Anion Gap 15 (12-20); Aspartate Amino Transferase 32 U/L (5-31); Bilirubin Total 0.6 mg/dL (0.0-1.0); Blood Urea Nitrogen 13 mg/dL (9-16); Calcium 10.2 mg/dL (8.4-10.2); Carbon Dioxide 24 mmol/L (22-29); Chloride 104 mmol/L (96-108); Cholesterol 259 mg/dL (<200); Estimated Glomerular Filt Rate > 60; Glucose Fasting 165 mg/dL (60-99); HDL Cholesterol 51 mg/dL (>40); LDL Cholesterol Calculated 165 mg/dL (<100); Potassium 4.1 mmol/L (3.3-5.1); Sodium 139 mmol/L (135-145); Total Protein 7.8 g/dL (6.5-8.0); Triglycerides 215 mg/dL (<150)
--- OUTSIDE RECORDS SUMMARY | 2024-05-06 12:31 | XMS_ITS | Patient Health Record ---
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 Name Role Phone Brendan DUTTON, [facility] Primary Care Provider Jian Beckham [phone] ALLERGIES Allergen (clinical drug ingredient) Drug/Non Drug Allergy documented on EMR Reaction Allergy Type Onset Date Status Levaquin Unknown Drug Allergy Active varenicline Chantix Unknown Drug Allergy Activ e REASON FOR REFERRAL No Information MEDICATIONS Medication SIG (Take, Route, Frequency, Duration) Notes Start Date End Date Status Multivitamin - 1 tablet Orally Once a day for 30 day(s) Active Simvastatin 20 MG 1 tablet in the even ing Orally Once a day for 30 day(s) Active metFORMIN HCl ER 500 MG 1 tablet with ev ening meal Orally Once a day for 30 day(s) Active Fenofibrate 160 MG 1 tablet with a meal Orally Once a day Active oxyCODONE HCl 5 MG 1 tablet as needed O rally every 6 hrs Active LORazepam 0.5 MG 1 tablet at bedtime as needed Orally Once a day Active Aspir-81 81 MG 1 tablet Orally Once a day Active busPIRone HCl 7.5 MG 1 tablet Orally Twi ce a day Active Vitamin D (Ergocalciferol) 33986 UNIT 1 capsule Orally ONCE A WEEK Active IMMUNIZATIONS Vaccine Route Administration Date Status Comme nts Influenza Unknown 01/24/2022 Refused SOCIAL HISTORY Sex Assigned At : Social History Observation Description Sex Assigned At Unknown PROBLEMS Problem Type ICD Code Onset Dates Problem Status W/U Status Risk SNOMED Code Notes Problem Encounter for screening for malignant neoplasm of colon (Z12.11) Active confirmed 640783940 Problem Encounter for screening for malignant neoplasm of rectum (Z12.12) Active confirmed Screening fo r malignant neoplasm of rectum (593396438) Problem History of adenomatous polyp of colon (Z86.010) Active confirmed 418748950 Problem Long-term use of aspirin therapy (Z79.82) Active confirmed 727463628 Problem Change in bowel habits (R19.4) Active confirmed Change in bow el habit (37896297) Problem Constipation (K59.00) Active confirmed Constipation (07218765) Problem Family history of colon cancer in father (Z80.0) Active confirmed Family histor y of malignant neoplasm of gastrointestinal tract (647196075) Problem Diverticulosis of colon (K57.30) Active confirmed Diverticulosi s of colon (664588727) PLAN OF TREATMENT Future Test Test Name Order Date COLONOSCOPY 08/03/2015 COLONOSCOPY 01/24/2022 Insurance Providers Payer Name Payer Address Payer Phone Subscriber Number Group Number Insured Name Patient Relationship to Insured Coverage Start Date Coverage End Date [place] [address] [place] [address] [phone] [id number] CANDELARIO NUNN Self - patient is the insured [employer] [address] [place] [address] [id number] CANDELARIO NUNN Self - patient is the insured MEDICAL (GENERAL) HISTORY Medical History History ICD Code Colonoscopy 10-31-2001--1 small tubular ad enoma, internal hemorrhoids Anxiety Urinary bladder cancer treated by cystos copy in 2000 Hyperlipidemia Denies HI,CVA,Lung disease,renal disease Negative screening colonoscopy in 11/2015 NIDDM Lumbar spine arthritis Surgical History Surgery Date(Month/Year) Hysterectomy and removal of one ovary Bladder suspension Cystoscopy for bladder cancer Lipoma
== END 2024-05-04 06:48 | disposition home or self-care (01) ==
LOC: HO.HMGCLDS 06:47
PROVIDERS: PCP Internal Medicine; Visit Provider Internal Medicine
DX: E13.9 Other specified diabetes mellitus without complications (principal); F41.1 Generalized anxiety disorder; M54.16 Radiculopathy, lumbar region; E78.9 Disorder of lipoprotein metabolism, unspecified
CPT/HCPCS: 36415; 80053; 80061; 82043; 82570; 83036; 85025

== ENCOUNTER 2024-05-08 08:47 | Outpatient (AMB) | payer MEDICARE, OTHER, SELFPAY ==
--- NOTE | 2024-05-08 08:48 | A.OFFPC_ITS ---
Vital Signs 05/08/24 08:49 Height 5 ft 5 in Weight 154 lb 2 oz BMI 25.6 BP 110/54 L Blood Pressure Location Rt brachial Position Sitting Intake Visit Reasons: 3m follow up Allergies levofloxacin [From LEVAQUIN] Allergy (Intermediate, Verified 05/08/24 08:49) RED LINE UP ARM FROM IV SITE, redness, itching, swelling barium sulfate Adverse Reaction (Intermediate, Verified 05/08/24 08:49) agitation varenicline Adverse Reaction (Intermediate, Verified 05/08/24 08:49) agitation Medication List - Last Reconciled 05/08/24 by Maciel Cardona MD albuterol sulfate 90 mcg/actuation (Ventolin HFA) 1 inh inhalation QID PRN 30 days aspirin (Adult Aspirin Regimen) 81 mg PO DAILY bimatoprost 0.01% 1 drp ophthalmic (eye) BEDTIME brimonidine 0.2% 1 drp ophthalmic (eye) BID cholecalciferol (vitamin D3) 25 mcg PO DAILY dorzolamide 2% 1 drp ophthalmic (eye) DAILY fenofibrate 160 mg PO DAILY 90 days lorazepam 0.5 mg PO DAILY PRN 90 days metformin 500 mg PO BID 90 days multivitamin 1 tab PO DAILY oxycodone 5 mg PO ONCE PRN 30 days simvastatin 20 mg PO DAILY 90 days Tobacco use date assessed: 05/08/24 Fall risk assessment: No Falls in past year Last assessed Fall Risk: 05/08/24 Dental Screening Dental Screen Date: 05/08/24 Did you have a dental visit in the last 12 months?: No Did you have a dental problem in the last 6 months where you did not have access to dental care?: No Was dental information given to patient?: No HPI 3m follow up HPI Details Chief Complaint Management of Type 2 Diabetes Mellitus with elevated hemoglobin A1c and associated symptoms. Assessment and Plan 69-year-old female with a history of Typ e 2 Diabetes Mellitus, presenting with elevated hemoglobin A1c. The patient reports a notable increase in A1c from 6.4 in September to 7.1 in the recent labs conducted in March. She is experiencing complications in managing her diabetes due to significant family-related stressors and an unbalanced diet. She also reports non-specific chest pain, likely related to dietary changes and a past history of gastroesophageal reflux disease (GERD). Additionally, hyperlipidemia is a concern, with the patient noting adverse effects from statin use. Degenerative lumbar disease is impacting her mobility, and she reports ongoing hypertension management. Also has been having chest pains off and on which are unrelated to eating 1. Hyperlipidemia Lipid profile shows elevated LDL of 165. Discussed the previous adverse effects from statin therapy. Alternative treatment options and lifestyle modifications should be considered. Suggest dietary changes targeting cholesterol management. 2. Hypertension Blood pressure readings are within target range, at 110/50 mmHg. Continue current antihypertensive medications without modification and encourage adherence to lifestyle modifications supportive of cardiovascular health. 3. Degenerative Lumbar Disease Identified as a long-standing issue with recent exacerbation impacting the patient's mobility. Current management includes symptomatic relief and discussion of limiting physical activities that exacerbate pain. Encourage regular follow-up for assessment and management of degenerative changes. Script for narcotic pain medication provided this visit 4. Gastroesophageal Reflux Disease Suspe cted Dietary habits possibly contributing to symptoms. Recommending lifestyle and diet adjustments to limit triggering foods, such as acidic or spicy foods. Discussed risks and benefits of starting an antacid or H2-receptor antagonist if symptoms persist. 5. Type 2 Diabetes Mellitus A1c has increased to 7.1, attributed to dietary inconsistencies and familial stress. Reinforce the importance of adhering to a diabetes-friendly diet and consistent intake of prescribed medications, including Metformin. Encourage structured mealtime habits to improve compliance. 6. Chest Pain Discussed potential GERD-related chest pain, noting dietary triggers. An EKG and chest imaging are planned to rule out cardiac causes. Initiate dietary modifications to reduce symptom occurrence. 7- anxiety: Patient is on lorazepam, re fill provided, she is aware of side effects Diagnostic results - Labs: - Hemoglobin A1c: 7.1 (increased from 6.4 in September) - LDL cholesterol: 165 mg - EKG shows no acute findings, 92 beats per minute normal sinus rhythm, possibility of left atrial enlargement for that I have ordered echocardiogram Problem List - Type 2 Diabetes Mellitus - Hyperlipidemia - Degenerative Lumbar Disease - Chest Pain - Gastroesophageal Reflux Disease (suspe cted) - Hypertension (controlled) Health Maintenance - Reinforced the importance of a diabete s-friendly diet and medication adherence. - Discussed lifestyle modifications to s upport hypertension and cholesterol management, highlighting cardiovascular disease prevention. - Addressed the relevance of regular mon itoring and adjustment of plan in response to familial and social stressors affecting health. Patient Instructions - Continue taking all prescribed medicat ions as directed and maintain consistent timing with doses. - Focus on a balanced diet and control p ortion sizes; prioritize diabetes- friendly meals. - Engage in regular physical activity as tolerated to improve overall health status and assist with weight management, where applicable. - Seek immediate medical attention if ch est pain persists or worsens. - Consider counseling or support for str ess management given significant family- related pressures. - Return for a follow-up visit as discus sed to reassess and make necessary adjustments in the management plan. Follow-up 3 months [facility] Medical History Fatty liver Bruit (arterial) Hx of lipoma Arthritis Anxiety Renal calculi Family history of colon cancer in father Family history of throat cancer Endometriosis Hyperlipidemia 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 Maternal Grandfather No problems noted. Paternal Grandfather No problems noted. Paternal Grandmother No problems noted. Sister No problems noted. Sister No problems noted. Son No problems noted. Daughter No problems noted. Daughter Substance use disorder Social History Housing: House Alcohol intake: never Patient Tobacco Use Status: Current everyday Tobacco user Tobacco use type: Cigarette Cigarette Packs Per Day: 0.5 Cigarettes Per Day: 10 e-Cigarette/Vaping Use: Never Used Second Hand Smoke Exposure: Yes service: No Current occupational status: retired Cognitive needs: No Hearing needs: No Vision needs: Yes Questionnaire PHQ-9 Over the last 2 weeks, how often have you been bothered by any of the following problems? 1. Little interest or pleasure in doing things: several days 2. Feeling down, depressed, or hopeless: not at all 3. Trouble falling or staying asleep, or sleeping too much: several days 4. Feeling tired or having little energy: several days 5. Poor appetite or overeating: not at all 6. Feeling bad about yourself - or that you are a failure or have let yourself or your family down: not at all 7. Trouble concentrating on things, such as reading the newspaper or watching television: not at all 8. Moving or speaking so slowly that other people could have noticed. Or the opposite - being so fidgety or restless that you have been moving around a lot more than usual: not at all 9. Thoughts that you would be better off or of hurting yourself in some w ay: not at all Total score: 3 Depression Screening Interpretation: Negative Depression Screening Done: Yes 04538 - PHQ-9 Billing: Yes Source: Developed by Drs. Jian Contreras, Florina Almanzar, Lionel Subramanian and colleagues, with an educational hipolito from [employer]. Thrive Questionnaire Date Thrive assessed: 05/08/24 I am a: Patient What is your living situation today?: I have a steady place to live Within the past 12 months, did the food you bought not last and you didn't have the money to get more?: Never true Within the past 12 months, did you worry whether your food would run out before you got money to buy more?: Never true Do you have trouble paying for medicines?: No Do you have trouble getting transportation to medical appointments?: No Do you have trouble paying your heating and electricity bill?: No Do you have trouble taking care of your child, family member or friend?: No Do you have trouble with day-to-day activities such as bathing, preparing meals, shopping, managing finances, etc.?: No Are you currently unemployed and looking for a job?: No Are you interested in more education?: No Please select the resources that you would like help with: None Currently or been in a relationship where the following occur: I choose not to answer THRIVE Score: 0 AUDIT C Alcohol Use Questionnaire (AUDIT-C) 1. How often do you have a drink containing alcohol?: Never 2. How many drinks containing alcohol do you have on a typical day when you are drinking?: 1 or 2 3. How often do you have six or more drinks on one occasion?: Never Total Score: 0 Score Reviewed/Action Taken: Yes HARSHIL-7 AMB Questionnaire HARSHIL-7 Date HARSHIL - 7 assessed: 11/06/23 Source: Developed by Drs. Jian Contreras, Florina Almanzar, Lionel Subramanian and colleagues, with an educational hipolito from [employer]. Review of Systems Const Denies chills and Denies fever(s) ENT Denies epistaxis and Denies nasal discharge Resp Denies chest congestion, Denies cough and Denies hemoptysis GI Denies diarrhea and Denies nausea Skin/Breast Denies rash Neuro Reports no additional complaints Psych Reports no additional complaints Endo Reports no additional complaints Physical exam (Primary Care) Vital Signs: Last Vital Signs BP 110/54 L 05/08/24 08:49 BMI result Body Mass Index 25.6 Tobacco/Smoking Status: Tobacco use Status Tobacco use date assessed 05/08/24 05/08/24 08:49 Patient Tobacco Use Status Current everyday Tobacco 05/08/24 08:49 Tobacco use type Cigarette 05/08/24 08:49 e-Cigarette/Vaping Use Never Used 05/08/24 08:49 PHQ-9: PHQ-9 Score PHQ-9: Total score 3 05/08/24 11:22 Depression Screening Interpretation: Negative Thrive Assessment: Date of Thrive Assessment Date Thrive assessed 05/08/24 05/08/24 08:54 Currently or been in a relationship where the following occur: I choose not to answer Const General: cooperative, comfortable and no acute distress Orientation/consciousness: patient oriented x3 HENMT Head: Yes normocephalic Eyes General: appearance normal, both eyes and all related structures Neck Neck: Yes supple Resp Effort & Inspection: normal respiratory effort, no cough and no stridor Cardio Rhythm: regular rhythm Heart sounds: S1 normal heart sound present and S2 normal heart sound present Skin General skin exam: turgor normal Neuro General: patient oriented x3, tone normal and moves all extremities Extrem Right lower extremity: no edema Left lower extremity: no edema Office Procedures EKG 55122-Iiesbcdbtkrpnkhxk, Complete Coding Level of Care Code Est Pt Level 5 (12145) Complex EM visit Add On G2211 Diagnoses Other chest pain R07.89 Chest pain type: other chest pain Diabetes 1.5, managed as type 2 E13.9 Anxiety, generalized F41.1 Lipid disorder E78.9 Difficulty sleeping G47.9 Tobacco dependence F17.200 Stress at home F43.9 Abnormal EKG R94.31 CPT Codes EKG - CPT: 16796-Mppagmwqhbavxolle, Complete ([id number]) Additional Codes PHQ-9 - 24466 - PHQ-9 Billing: Yes ([id number]) Assessment & Plan Assessment & Plan (1) Chest pain: Code(s): R07.9 - Chest pain, unspecified Category: Medical Qualifiers: Chest pain type: other chest pain Qualified Code(s): R07.89 - Other chest pain (2) Diabetes 1.5, managed as type 2: Code(s): E13.9 - Other specified diabetes mellitus without complications Category: Medical (3) Anxiety, generalized: Code(s): F41.1 - Generalized anxiety disorder Category: Medical (4) Lipid disorder: Code(s): E78.9 - Disorder of lipoprotein metabolism, unspecified Category: Medical (5) Difficulty sleeping: Code(s): G47.9 - Sleep disorder, unspecified Category: Medical (6) Tobacco dependence: Code(s): F17.200 - Nicotine dependence, unspecified, uncomplicated Category: Medical (7) Stress at home: Code(s): F43.9 - Reaction to severe stress, unspecified Category: Social Hx (8) Abnormal EKG: Code(s): R94.31 - Abnormal electrocardiogram [ECG] [EKG] Category: Medical Plan Chief Complaint Management of Type 2 Diabetes Mellitus with elevated hemoglobin A1c and associated symptoms. Assessment and Plan 69-year-old female with a history of Type 2 Diabetes Mellitus, presenting with elevated hemoglobin A1c. The patient reports a notable increase in A1c from 6.4 in September to 7.1 in the recent labs conducted in March. She is experiencing complications in managing her diabetes due to significant family-related stres sors and an unbalanced diet. She also reports non-specific chest pain, likely related to dietary changes and a past history of gastroesophageal reflux disease (GERD). Additionally, hyperlipidemia is a concern, with the patient noting adverse effects from statin use. Degenerative lumbar disease is impacting her mobility, and she reports ongoing hypertension management. Also has been having chest pains off and on which are unrelated to eating 1. Hyperlipidemia Lipid profile shows elevated LDL of 165. Discussed the previous adverse effects from statin therapy. Alternative treatment options and lifestyle modifications should be considered. Suggest dietary changes targeting cholesterol management. 2. Hypertension Blood pressure readings are within target range, at 110/50 mmHg. Continue current antihypertensive medications without modification and encourage adherence to lifestyle modifications supportive of cardiovascular health. 3. Degenerative Lumbar Disease Identified as a long-standing issue with recent exacerbation impacting the patient's mobility. Current management includes symptomatic relief and discussion of limiting physical activities that exacerbate pain. Encourage regular follow-up for assessment and management of degenerative changes. Script for narcotic pain medication provided this visit 4. Gastroesophageal Reflux Disease Suspected Dietary habits possibly contributing to symptoms. Recommending lifestyle and diet adjustments to limit triggering foods, such as acidic or spicy foods. Discussed risks and benefits of starting an antacid or H2-receptor antagonist if symptoms persist. 5. Type 2 Diabetes Mellitus A1c has increased to 7.1, attributed to dietary inconsistencies and familial stress. Reinforce the importance of adhering to a diabetes-friendly diet and consistent intake of prescribed medications, including Metformin. Encourage structured mealtime habits to improve compliance. 6. Chest Pain Discussed potential GERD-related chest pain, noting dietary triggers. An EKG and chest imaging are planned to rule out cardiac causes. Initiate dietary modifications to reduce symptom occurrence. 7- anxiety: Patient is on lorazepam, refill provided, she is aware of side effects Diagnostic results - Labs: - Hemoglobin A1c: 7.1 (increased from 6.4 in September) - LDL cholesterol: 165 mg - EKG shows no acute findings, 92 beats per minute normal sinus rhythm, possibility of left atrial enlargement for that I have ordered echocardiogram Problem List - Type 2 Diabetes Mellitus - Hyperlipidemia - Degenerative Lumbar Disease - Chest Pain - Gastroesophageal Reflux Disease (suspected) - Hypertension (controlled) Health Maintenance - Reinforced the importance of a diabetes-friendly diet and medication adherence . - Discussed lifestyle modifications to support hypertension and cholesterol management, highlighting cardiovascular disease prevention. - Addressed the relevance of regular monitoring and adjustment of plan in response to familial and social stressors affecting health. Patient Instructions - Continue taking all prescribed medications as directed and maintain consistent timing with doses. - Focus on a balanced diet and control portion sizes; prioritize diabetes- friendly meals. - Engage in regular physical activity as tolerated to improve overall health status and assist with weight management, where applicable. - Seek immediate medical attention if chest pain persists or worsens. - Consider counseling or support for stress management given significant family- related pressures. - Return for a follow-up visit as discussed to reassess and make necessary adjustments in the management plan. Follow-up 3 months 45 minutes spent in care of this patient Orders: Orders Hemoglobin A1c Today E13.9 - Other specified diabetes mellitus without complications, E78.9 - Disorder of lipoprotein metabolism, unspecified, F17.200 - Nicotine dependence, unspecified, uncomplicated, F41.1 - Generalized anxiety disorder, G47.9 - Sleep disorder, unspecified, R07.9 - Chest pain, unspecified LDL Cholesterol Direct Today E13.9 - Other specified diabetes mellitus without complications, E78.9 - Disorder of lipoprotein metabolism, unspecified, F17.200 - Nicotine dependence, unspecified, uncomplicated, F41.1 - Generalized anxiety disorder, G47.9 - Sleep disorder, unspecified, R07.9 - Chest pain, unspecified CA echo transthoracic complete Today R07.89 - Other chest pain, R94.31 - Abnormal electrocardiogram [ECG] [EKG] Comprehensive Met. Panel Today E13.9 - Other specified diabetes mellitus without complications, E78.9 - Disorder of lipoprotein metabolism, unspecified, F17.200 - Nicotine dependence, unspecified, uncomplicated, F41.1 - Generalized anxiety disorder, G47.9 - Sleep disorder, unspecified, R07.9 - Chest pain, unspecified Microalbumin, Random (w Creat) Today E13.9 - Other specified diabetes mellitus without complications, E78.9 - Disorder of lipoprotein metabolism, unspecified, F17.200 - Nicotine dependence, unspecified, uncomplicated, F41.1 - Generalized anxiety disorder, G47.9 - Sleep disorder, unspecified, R07.9 - Chest pain, unspecified Medications: Refilled fenofibrate 160 mg PO DAILY 90 tabs 1RF 90 days E78.9 - Disorder of lipoprotein metabolism, unspecified metformin 500 mg PO BID 180 tabs 1RF 90 days E13.9 - Other specified diabetes mellitus without complications oxycodone partial refill permitted 5 mg PO ONCE PRN 30 tabs 0RF pain 30 days lorazepam 0.5 mg PO DAILY PRN 45 tabs 0RF sleep 90 days G47.9 - Sleep disorder, unspecified
[2024-05-08 08:49] VITALS: BP 110/54; BMI 25.6
--- OUTSIDE RECORDS SUMMARY | 2024-05-08 08:51 | XMS_ITS | Patient Health Record ---
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 Level Accountant Name Role Phone Brendan DUTTON, [facility] Primary [facility] Provider Jian Beckham [phone] ALLERGIES Allergen (clinical drug ingredient) Drug/Non Drug [...] ce a day Active Vitamin D (Ergocalciferol) 43636 UNIT 1 capsule Orally ONCE A WEEK Active IMMUNIZATIONS Vaccine Route Administration Date Status Comme nts Influenza Unknown 01/24/2022 Refused SOCIAL HISTORY Sex Assigned At : Social History Observation Description Sex Assigned At Unknown PROBLEMS Problem Type ICD Code Onset Dates Problem Status W/U Status Risk SNOMED Code Notes Problem Encounter for screening for malignant neoplasm of colon (Z12.11) Active confirmed 632651096 Problem Encounter for screening for malignant neoplasm of rectum (Z12.12) Active confirmed Screening fo r malignant neoplasm of rectum (474952911) Problem History of adenomatous polyp of colon (Z86.010) Active confirmed 085630572 Problem Long-term use of aspirin therapy (Z79.82) Active confirmed 092478009 Problem Change in bowel habits (R19.4) Active confirmed Change in bow el habit (36779132) Problem Constipation (K59.00) Active confirmed Constipation (27240916) Problem Family history of colon cancer in father (Z80.0) Active confirmed Family histor y of malignant neoplasm of gastrointestinal tract (193753839) Problem Diverticulosis of colon (K57.30) Active confirmed Diverticulosi s of colon (913026185) PLAN OF TREATMENT Future Test Test Name Order Date COLONOSCOPY 08/03/2015 COLONOSCOPY 01/24/2022 Insurance Providers Payer Name Payer Address Payer Phone Subscriber Number Group Number Insured Name Patient Relationship to Insured Coverage Start Date Coverage End Date [place] [address] [place] [address] [phone] [id number] CANDELARIO NUNN Self - patient is the insured [employer] [address] [place] [address] [id number] CANDELARIO NUNN Self - patient is the insured MEDICAL (GENERAL) HISTORY Medical History History ICD Code Colonoscopy 10-31-2001--1 small tubular ad enoma, internal hemorrhoids Anxiety Urinary bladder cancer treated by cystos copy in 2000 Hyperlipidemia Denies MS,CVA,Lung disease,renal disease Negative screening colonoscopy in 11/2015 NIDDM Lumbar spine arthritis Surgical History Surgery Date(Month/Year) Hysterectomy and removal of one ovary Bladder suspension Cystoscopy for bladder cancer Lipoma
== END 2024-05-08 10:09 | disposition home or self-care (01) ==
PROVIDERS: PCP Internal Medicine; Visit Provider Internal Medicine
DX: R07.89 Other chest pain (principal); E13.9 Other specified diabetes mellitus without complications; F41.1 Generalized anxiety disorder; E78.9 Disorder of lipoprotein metabolism, unspecified; G47.9 Sleep disorder, unspecified; F17.200 Nicotine dependence, unspecified, uncomplicated; F43.9 Reaction to severe stress, unspecified; R94.31 Abnormal electrocardiogram [ECG] [EKG]

== ENCOUNTER → 2024-05-08 08:47 | Outpatient (BNVA) | payer MEDICARE, OTHER, SELFPAY | PROVIDERS: PCP Internal Medicine; Visit Provider Internal Medicine | DX: K21.9 Gastro-esophageal reflux disease without esophagitis (principal); E78.5 Hyperlipidemia, unspecified; I10 Essential (primary) hypertension; J98.4 Other disorders of lung; R07.89 Other chest pain; E13.9 Other specified diabetes mellitus without complications; F41.1 Generalized anxiety disorder; G47.9 Sleep disorder, unspecified; F43.9 Reaction to severe stress, unspecified; R94.31 Abnormal electrocardiogram [ECG] [EKG]; F17.210 Nicotine dependence, cigarettes, uncomplicated; Z79.899 Other long term (current) drug therapy | CPT/HCPCS: 93005; 96127; 99212 ==

== ENCOUNTER → 2024-05-18 14:48 | Outpatient (REF) | payer MEDICARE, OTHER, SELFPAY ==
--- NOTE | 2024-05-18 14:53 | CA_ITS ---
Transthoracic Echocardiogram Patient (Last, First, Middle): Jeimy Ambrose Jo Gender: Female Date of : 1955 Age: 69 Procedure Date: 05/18/2024 Procedure Type: Transthoracic Echocardiogram Location: OP Height: 165. cm Weight: 70.2 kg BSA: 1.77 m2 Heart Rate: 79 bpm BP: 148 / 65 mmHg Antenna Specialist: SALMA Referring MD: Maciel Cardona MD Symptoms: R07.89 - Other chest pain Study Quality: Fair ECG Rhythm: Sinus Conclusions: - The left ventricular systolic function is low normal. The calculated ejection fraction is 54% by biplane method. - No obvious valvular pathology seen on this study. Findings Left Ventricle Normal left ventricular cavity size. There is normal left ventricular wall thickness. The left ventricular systolic function is low normal. The calculated ejection fraction is 54% by biplane method. There is no evidence of regional wall motion abnormalities. Diastolic function is normal for age. Right Ventricle Normal right ventricular cavity size and systolic function. Atria Both atria are normal in size. Aortic Valve There is a normal trileaflet aortic valve. There is mild calcification of the aortic valve. There is no aortic valve stenosis. There is no aortic valve regurgitation. Mitral Valve There is mild mitral annular calcification. There is no mitral valve regurgitation. There is no mitral valve stenosis. Pulmonic Valve The pulmonic valve is likely normal. Tricuspid Valve Normal tricuspid valve structure. There is no tricuspid valve regurgitation. Tricuspid regurgitation envelope is inadequate for calculation of right ventricular systolic pressure. Great Vessels The asc aorta is normal in size. Venous The inferior vena cava is normal in size and collapses greater than 50% with inspiration. Pericardium/Pleural There is no evidence of pericardial effusion. Prior Study Comparison No prior study available for comparison. Recommendations, Care & Conclusions No obvious valvular pathology seen on this study. Measurements 2D Linear Measurements IVSd: 0.99 0.6-0.9/0.6-1.0 cm LVIDd: 4.01 3.9-5.3/4.2-5.9 cm LVIDd Index: 2.27 2.4-3.2/2.2-3.1 cm/m2 LVIDs: 2.57 2.0-3.6 cm LVPWd: 0.96 0.7-1.1 cm LA Diam: 3.00 2.7-3.8/3.0-4.0 cm LAIDs Index: 1.69 1.5-2.3 cm/m2 LV Mass: 153.12 67-162/88-224 g LV Mass Index: 86.51 43-95/49-115 g/m2 LVOT Diam: 1.80 3.0+(-)1.3 cm 2D Systolic Function EF 4C: 56.20 >55% EF 2C: 52.70 >55% EF BiP: 54.20 >55% Mitral Valve MV Pk E: 0.81 MV PK A: 0.86 MV Decel Time: 214.00 E/A: 0.90 E'Lateral: 6.96 E'Medial: 6.85 E/E' Med: 11.80 E/E' Lat: 11.60 PHT: 63.00 MVA PHT: 3.49 Decel [place]: 3.77 Aortic Valve AoV Pk Seb: 1.59 AoV Mn Seb: 1.05 AoV VTI: 0.30 AoV Pk Grad: 10.00 Aov Mn Grad: 5.00 DENG Cont.VTI: 1.58 LVOT LVOT Pk Seb: 1.02 LVOT Mn Seb: 0.63 LVOT VTI: 0.18 LVOT Pk Grad: 4.00 LVOT Mn Grad: 2.00 LVOT Diam: 1.80 LVOT Area: 2.54 Diastolic Function MV Pk E: 0.81 MV Pk A: 0.86 E/A: 0.90 E'Medial: 6.85 E/E' Med: 11.80 E' Laterial: 6.96 E/E' Lat: 11.60 Right Ventricle TAPSE (mm): 15.60 TVS' Seb: 10.90 Tricuspid Valve RA Press: 3.00 Great Vessels Aorta Sinus of Valsalva: 2.90 2.0-3.5 cm Ao Asc: 3.00 2.1-3.4 cm Pulmonary Valve PV Pk Seb: 1.45 Peak PV Grad: 8.00 Updated in Other Vendor System with Status of Final Cruz Oakes MD electronically signed on 05/19/2024 9:48:28 AM with status of Final
== END ==
LOC: HO.CARD 14:48
PROVIDERS: PCP Internal Medicine; Visit Provider Internal Medicine
DX: R07.89 Other chest pain (principal); R94.31 Abnormal electrocardiogram [ECG] [EKG]
CPT/HCPCS: 93306

== ENCOUNTER → 2024-05-18 14:53 | Outpatient (BNV) | payer MEDICARE, OTHER, SELFPAY | PROVIDERS: PCP Internal Medicine; Visit Provider Internal Medicine | DX: I35.8 Other nonrheumatic aortic valve disorders (principal); I34.81 Nonrheumatic mitral (valve) annulus calcification | CPT/HCPCS: 93306 ==

== ENCOUNTER 2024-05-21 11:15 | Outpatient (AMB) | payer MEDICARE, OTHER, SELFPAY ==
--- NOTE | 2024-05-20 19:46 | MHC.OFFVIS ---
Intake Visit Reasons: 6m/Recurrent UT/PVR Intake Note: Patient is present for 6 month follow up/PVR Urology Med: None Antibiotic Allergy: Levofloxacin Blood Thinner: Aspirin Todays PVR: 115ml'5 Patient Symptoms: None Secretarial Stenographer Required: No Accompanied by: Self / Same As Patient Allergies levofloxacin [From LEVAQUIN] Allergy (Intermediate, Verified 05/21/24 11:36) RED LINE UP ARM FROM IV SITE, redness, itching, swelling barium sulfate Adverse Reaction (Intermediate, Verified 05/21/24 11:36) agitation varenicline Adverse Reaction (Intermediate, Verified 05/21/24 11:36) agitation HPI Comments Details: 05/21/24--Jeimy Gaytan is a 69-year-old female with history of bladder cancer---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 She had cystoscopy with random bladder biopsies 12/11/2022-pathology benign urothelial tissue. LV-11/11/23-- Office cysto c/w cystitis. 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 She had cystoscopy with random bladder biopsies 12/11/2022-pathology benign urothelial tissue. She is here for surveillance 6 month office cystoscopy. She denies episode of gross hematuria. She did have a UTI in August, and again was seen on 11/01/2023 for UTI symptoms and treated with a 5 day course of Bactrim DS b.i.d.. The patient states that she has a hemorrhoid and notices intermittent fecal leakage, which may be contributing to the recurrent UTIs. The patient states that she used estrogen cream in the past which did not help. Discussed renal ultrasound-10/22/2023 was within normal limits no renal calculi visualized. Cystoscopy findings: Erythematous changes, consistent with cystitis follicularis, no suspicious bladder lesions visualized. Discussed therapeutic plan Macrobid b.i.d. for 5 days and continued suppressive therapy for 90 days of Macrobid 100 mg daily. 05/10/2023? 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 She originally presented due to gross hematuria. She is s/p Cystoscopy bladder biopsies on 12/11/2022, path results were benign. 05/10/23--Cystoscopy findings: WNL, no suspicious bladder lesions visualized She has had CAT scan of the kidney in the past which showed kidney stones and renal cysts which meets criteria of simple benign cysts. [facility] Medical History Fatty liver Bruit (arterial) Hx of lipoma Arthritis Anxiety Renal calculi Family history of colon cancer in father Family history of throat cancer Endometriosis Hyperlipidemia 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 Maternal Grandfather No problems noted. Paternal Grandfather No problems noted. Paternal Grandmother No problems noted. Sister No problems noted. Sister No problems noted. Son No problems noted. Daughter No problems noted. Daughter Substance use disorder Social History Housing: House Alcohol intake: never Patient Tobacco Use Status: Current everyday Tobacco user Tobacco use type: Cigarette Cigarette Packs Per Day: 0.5 Cigarettes Per Day: 10 e-Cigarette/Vaping Use: Never Used Second Hand Smoke Exposure: Yes service: No Current occupational status: retired Cognitive needs: No Hearing needs: No Vision needs: Yes Review of Systems Const All systems reviewed & are unremarkable except as noted in HPI and below Reports no additional complaints Eyes Reports no additional complaints ENT Reports no additional complaints Card Reports no additional complaints Resp Reports no additional complaints GI Reports no additional complaints Reports as per HPI Musc Reports no additional complaints Skin/Breast Reports system reviewed and no additional complaints, except as documented Neuro Reports no additional complaints Psych Reports no additional complaints Endo Reports no additional complaints Cristian/Lymph Reports no additional complaints Aller/Immun Reports no additional complaints Office Procedures Post Void Residual Post Residual Void Post Void Residual (PVR): 115 [id number] Void Residual by ultrasound Results AMB Urinalysis, Automated UA Leukoctes 0 Aubrey/uL Last Edit by Matilda Catalan, MAK on 05/21/24 11:45 UA Nitrite Negative Last Edit by Matilda Catalan, CALL CENTER NURSE on 05/21/24 11:45 UA Urobilinogen 0.2 mg/dL Last Edit by Matilda Catalan, CALL CENTER NURSE on 05/21/24 11:45 UA Protein 0 mg/dL Last Edit by Mtailda Catalan, CALL CENTER NURSE on 05/21/24 11:45 UA pH 6.0 Last Edit by Matilda Catalan, CALL CENTER NURSE on 05/21/24 11:45 UA Blood 0 Blaine/uL Last Edit by Matilda Catalan, CALL CENTER NURSE on 05/21/24 11:[address] [place] 1.015 Last Edit by Matilda Catalan, CALL CENTER NURSE on 05/21/24 11:45 UA Ketone Negative Last Edit by Matilda Catalan, CALL CENTER NURSE on 05/21/24 11:45 UA Bilirubin 0 mg/dL Last Edit by Matilda Catalan, CALL CENTER NURSE on 05/21/24 11:45 UA Glucose 0 mg/dL Last Edit by Matilda Catalan, CALL CENTER NURSE on 05/21/24 11:45 Results Reviewed Results Reviewed: Laboratory Last Values Urine pH (Auto) 6.0 05/21/24 11:[address] [place] (Auto) 1.015 05/21/24 11:37 Urine Protein (Auto) 0 mg/dL 05/21/24 11:37 Glucose (UA)(Auto) 0 mg/dL 05/21/24 11:37 Urine Ketones (Auto) Negative 05/21/24 11:37 Urine Blood (Auto) 0 Blaine/uL 05/21/24 11:37 Urine Nitrite (Auto) Negative 05/21/24 11:37 Urine Bilirubin (Auto) 0 mg/dL 05/21/24 11:37 Urine Urobilinogen (Auto) 0.2 mg/dL 05/21/24 11:37 Leukocyte Esterase (Auto) 0 Aubrey/uL 05/21/24 11:37 Assessment & Plan Assessment & Plan Orders: Orders AMB Urinalysis Automated Today Z13.9 - Encounter for screening, unspecified AMB Post Void Residual by ultrasound Today N39.0 - Urinary tract infection, site not specified Coding CPT Codes Post Residual Void - PVR CPT Code: [id number] Void Residual by ultrasound ([id number])
--- OUTSIDE RECORDS SUMMARY | 2024-05-21 11:17 | XMS_ITS | Patient Health Record ---
Author Organization [facility] Address [address] [place] [id number] Care Team Providers Care Delivery Route Driver Name Role Phone [facility]rendan [facility] Provider Jian Beckham [phone] ALLERGIES Allergen (clinical drug ingredient) Drug/Non Drug [...] ce a day Active Vitamin D (Ergocalciferol) 59538 UNIT 1 capsule Orally ONCE A WEEK Active IMMUNIZATIONS Vaccine Route Administration Date Status Comme nts Influenza Unknown 01/24/2022 Refused SOCIAL HISTORY Sex Assigned At : Social History Observation Description Sex Assigned At Unknown PROBLEMS Problem Type ICD Code Onset Dates Problem Status W/U Status Risk SNOMED Code Notes Problem Encounter for screening for malignant neoplasm of colon (Z12.11) Active confirmed 826622517 Problem Encounter for screening for malignant neoplasm of rectum (Z12.12) Active confirmed Screening fo r malignant neoplasm of rectum (667308255) Problem History of adenomatous polyp of colon (Z86.010) Active confirmed 529276408 Problem Long-term use of aspirin therapy (Z79.82) Active confirmed 201571278 Problem Change in bowel habits (R19.4) Active confirmed Change in bow el habit (64649584) Problem Constipation (K59.00) Active confirmed Constipation (04729157) Problem Family history of colon cancer in father (Z80.0) Active confirmed Family histor y of malignant neoplasm of gastrointestinal tract (985930700) Problem Diverticulosis of colon (K57.30) Active confirmed Diverticulosi s of colon (790561077) PLAN OF TREATMENT Future Test Test Name Order Date COLONOSCOPY 08/03/2015 COLONOSCOPY 01/24/2022 Insurance Providers Payer Name Payer Address Payer Phone Subscriber Number Group Number Insured Name Patient Relationship to Insured Coverage Start Date Coverage End Date MED[place]ARE OF [place] [address] [place] [address] [id number] CANDELARIO NUNN Self - patient is the insured [employer] [address] [place] [address] [id number] CANDELARIO NUNN Self - patient is the insured MEDICAL (GENERAL) HISTORY Medical History History ICD Code Colonoscopy 10-31-2001--1 small tubular ad enoma, internal hemorrhoids Anxiety Urinary bladder cancer treated by cystos copy in 2000 Hyperlipidemia Denies ID,CVA,Lung disease,renal disease Negative screening colonoscopy in 11/2015 NIDDM Lumbar spine arthritis Surgical History Surgery Date(Month/Year) Hysterectomy and removal of one ovary Bladder suspension Cystoscopy for bladder cancer Lipoma
== END 2024-05-21 12:04 | disposition home or self-care (01) ==
PROVIDERS: PCP Internal Medicine; Visit Provider Urology
DX: Z13.9 Encounter for screening, unspecified (principal)

== ENCOUNTER → 2024-05-21 11:15 | Outpatient (BNVA) | payer MEDICARE, OTHER, SELFPAY | PROVIDERS: PCP Internal Medicine; Visit Provider Urology | DX: N28.1 Cyst of kidney, acquired (principal); N39.0 Urinary tract infection, site not specified; Z85.51 Personal history of malignant neoplasm of bladder | CPT/HCPCS: 51798; 81003 ==

== ENCOUNTER 2024-08-21 09:03 | Outpatient (AMB) | payer MEDICARE, OTHER, SELFPAY ==
[2024-08-21 09:05] VITALS: BP 108/66; PULSE 102; O2SAT 96; BMI 25.5
--- NOTE | 2024-08-21 09:05 | A.OFFPC_ITS ---
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 Accompanied by: Self / Same As Patient Allergies levofloxacin [From LEVAQUIN] Allergy (Intermediate, Verified 08/21/24 09:06) RED LINE UP ARM FROM IV SITE, redness, itching, swelling barium sulfate Adverse Reaction (Intermediate, Verified 08/21/24 09:06) agitation varenicline Adverse Reaction (Intermediate, Verified 08/21/24 09:06) agitation Medication List - Last Reconciled 08/21/24 by Maciel Cardona MD albuterol sulfate 90 mcg/actuation (Ventolin HFA) 1 inh inhalation QID PRN 30 days aspirin (Adult Aspirin Regimen) 81 mg PO DAILY bimatoprost 0.01% 1 drp ophthalmic (eye) BEDTIME brimonidine 0.2% 1 drp ophthalmic (eye) BID cholecalciferol (vitamin D3) 25 mcg PO DAILY dorzolamide 2% 1 drp ophthalmic (eye) DAILY fenofibrate 160 mg PO DAILY 90 days lorazepam 0.5 mg PO DAILY PRN 90 days metformin 500 mg PO BID 90 days multivitamin 1 tab PO DAILY oxycodone 5 mg PO ONCE PRN 30 days simvastatin 20 mg PO DAILY 90 days Tobacco use date assessed: 08/21/24 Fall risk assessment: No Falls in past year Last assessed Fall Risk: 08/21/24 Dental Screening Dental Screen Date: 08/21/24 Did you have a dental visit in the last 12 months?: Yes Did you have a dental problem in the last 6 months where you did not have access to dental care?: No Was dental information given to patient?: Patient has dentist HPI 3 follow up HPI Details History The patient is a 69-year-old female presenting for follow-up on chronic conditions management. - Type 2 Diabetes Mellitus with an HbA1c level of 7.1%. The patient is on Metformin. - Experiences generalized fatigue but an emia is not detected; medication side effects and aging are potential factors. 1. Hyperlipidemia Lipid profile shows elevated LDL of 165. Discussed the previous adverse effects from statin therapy. Currently taking fenofibrate and is due for labs 2. Hypertension Blood pressure readings are within target range, without medication at this time 3. Degenerative Lumbar Disease Identified as a long-standing issue with recent exacerbation impacting the patient's mobility. Current management includes symptomatic relief and discussion of limiting physical activities that exacerbate pain. Encourage regular follow-up for assessment and management of degenerative changes. Taking oxycodone as needed no script was provided this visit 4. Gastroesophageal Reflux Disease Suspe cted Dietary habits possibly contributing to symptoms. Recommending lifestyle and diet adjustments to limit triggering foods, such as acidic or spicy foods. Discussed risks and benefits of starting an antacid or H2-receptor antagonist if symptoms persist. 5. Type 2 Diabetes Mellitus A1c is 7.1, same as before continue metformin 6- anxiety: Patient is on lorazepam, no script provided this visit Problem List - Type 2 Diabetes Mellitus - Hyperlipidemia - Degenerative Lumbar Disease - Gastroesophageal Reflux Disease (suspe cted) - Hypertension (controlled) Medications - Aspirin for cardiovascular prophylaxis . - Vitamin D supplementation. - Fenofibrate for hyperlipidemia managem ent. - Lorazepam for anxiety. - Metformin for Type 2 Diabetes Mellitus . - Oxycodone for pain management. - Simvastatin for hyperlipidemia. Diagnostic results - Labs: - Glycated Hemoglobin (HbA1c): 7 .1% - LDL Cholesterol: 165 mg/dL (from [facility]) - Tests and Diagnostics: - Echocardiogra m: Normal left ventricular systolic function, ejection fraction 54%, no valvular pathology. Patient Instructions - Continue current medications for diabe marv, hyperlipidemia, and hypertension. - Repeat lab tests for cholesterol monit oring before the next scheduled appointment. - Monitor symptoms of fatigue; contact t he office if symptoms worsen. - Maintain fasting prior to upcoming lab tests. Review of Systems General: No fever no chills neurological: No headaches no dizziness ear nose throat: No sore throat no hearing difficulty no ear pain cardiovascular: No syncope, no chest pain, no palpitations gastrointestinal: No nausea vomiting or diarrhea endocrine: No polyuria polydipsia no heat intolerance genitourinary: No dysuria skin: No new complaints Physical Exam general: No acute distress HEENT: No acute findings neck: Supple respiratory system: Lungs are fine, able to talk in full sentences, no audible wheeze, no stridor cardiovascular: Heart is fine, S1-S2 gastrointestinal: No pain extremities: No swelling, no new findings 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 x3 motor sensory intact skin: Normal turgor [facility] Medical History Fatty liver Bruit (arterial) Hx of lipoma Arthritis Anxiety Renal calculi Family history of colon cancer in father Family history of throat cancer Endometriosis Hyperlipidemia 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 Maternal Grandfather No problems noted. Paternal Grandfather No problems noted. Paternal Grandmother No problems noted. Sister No problems noted. Sister No problems noted. Son No problems noted. Daughter No problems noted. Daughter Substance use disorder Social History Housing: House Alcohol intake: never Patient Tobacco Use Status: Current everyday Tobacco user Tobacco use type: Cigarette Cigarette Packs Per Day: 0.5 Cigarettes Per Day: 10 e-Cigarette/Vaping Use: Never Used Second Hand Smoke Exposure: Yes service: No Current occupational status: retired Cognitive needs: No Hearing needs: No Vision needs: Yes Questionnaire PHQ-9 Over the last 2 weeks, how often have you been bothered by any of the following problems? 1. Little interest or pleasure in doing things: several days 2. Feeling down, depressed, or hopeless: not at all 3. Trouble falling or staying asleep, or sleeping too much: not at all 4. Feeling tired or having little energy: several days 5. Poor appetite or overeating: not at all 6. Feeling bad about yourself - or that you are a failure or have let yourself or your family down: not at all 7. Trouble concentrating on things, such as reading the newspaper or watching television: not at all 8. Moving or speaking so slowly that other people could have noticed. Or the opposite - being so fidgety or restless that you have been moving around a lot more than usual: not at all 9. Thoughts that you would be better off or of hurting yourself in some way: not at all Total score: 2 Depression Screening Interpretation: Negative Depression Screening Done: Yes 27115 - PHQ-9 Billing: Yes Source: Developed by Drs. Jian Contreras, Florina Almanzar, Lionel Subramanian and colleagues, with an educational hipolito from [employer]. Thrive Questionnaire Date Thrive assessed: 08/19/24 I am a: Patient What is your living situation today?: I have a steady place to live Within the past 12 months, did the food you bought not last and you didn't have the money to get more?: Never true Within the past 12 months, did you worry whether your food would run out before you got money to buy more?: Never true Do you have trouble paying for medicines?: No Do you have trouble getting transportation to medical appointments?: No Do you have trouble paying your heating and electricity bill?: No Do you have trouble taking care of your child, family member or friend?: No Do you have trouble with day-to-day activities such as bathing, preparing meals, shopping, managing finances, etc.?: No Are you currently unemployed and looking for a job?: No Are you interested in more education?: No Please select the resources that you would like help with: None Currently or been in a relationship where the following occur: No concerns reported THRIVE Score: 0 AUDIT C Alcohol Use Questionnaire (AUDIT-C) 1. How often do you have a drink containing alcohol?: Never 3. How often do you have six or more drinks on one occasion?: Never Total Score: 0 Score Reviewed/Action Taken: Yes HARSHIL-7 AMB Questionnaire HARSHIL-7 Date HARSHIL - 7 assessed: 08/21/24 Feeling nervous, anxious, or on edge: 1 = Several days Not being able to stop or control worryin = Not at all Worrying too much about different things: 0 = Not at all Trouble relaxin = Not at all Being so restless that it is hard to sit still: 0 = Not at all Becoming easily annoyed or irritable: 0 = Not at all Feeling afraid as if something awful might happen: 0 = Not at all Total HARSHIL-7 score (0-4 normal; 5-9 mild; 10-14 moderate; 15-21 severe): 1 Source: Developed by Drs. Jian Contreras, Florina Almanzar, Lionel Subramanian and colleagues, with an educational hipolito from [employer]. HARSHIL-7 Assessment Billing HARSHIL-7 Assessment Tool: HARSHIL-7 Assessment 17584 Physical exam (Primary Care) Vital Signs: Last Vital Signs Pulse 102 H 08/21/24 09:05 BP 108/66 08/21/24 09:05 Pulse Ox 96 08/21/24 09:05 Oxygen Delivery Method Room Air 08/21/24 09:05 BMI result Body Mass Index 25.5 Tobacco/Smoking Status: Tobacco use Status Tobacco use date assessed 08/21/24 08/21/24 09:07 Patient Tobacco Use Status Current everyday Tobacco 08/21/24 09:07 Tobacco use type Cigarette 08/21/24 09:07 e-Cigarette/Vaping Use Never Used 08/21/24 09:07 PHQ-9: PHQ-9 Score PHQ-9: Total score 2 08/21/24 09:34 Depression Screening Interpretation: Negative Thrive Assessment: Date of Thrive Assessment Date Thrive assessed 08/19/24 08/21/24 09:07 Currently or been in a relationship where the following occur: No concerns reported Results AMB Hemoglobin A1c AMB Hemoglobin A1c 7.1 % Last Edit by Eldon Godfrey CMA on 08/21/24 09: 24 Results Reviewed Results Reviewed: Laboratory Last Values Hgb A1c (Clinic) 7.1 % (4.0-6.0) H 08/21/24 09:23 Coding Level of Care Code Est Pt Level 4 (16065) Complex EM visit Add On G2211 Diagnoses Diabetes 1.5, managed as type 2 E13.9 Anxiety, generalized F41.1 Left lumbar radiculitis M54.16 Difficulty sleeping G47.9 Tobacco dependence F17.200 LFT elevation R79.89 Lipid disorder E78.9 Tired R53.83 Additional Codes HARSHIL-7 Assessment Billing - HARSHIL-7 Assessment Tool: HARSHIL-7 Assessment 96009 ([id number]) PHQ-9 - 49959 - PHQ-9 Billing: Yes ([id number]) Assessment & Plan Assessment & Plan (1) Diabetes 1.5, managed as type 2: Code(s): E13.9 - Other specified diabetes mellitus without complications Category: Medical (2) Anxiety, generalized: Code(s): F41.1 - Generalized anxiety disorder Category: Medical (3) Left lumbar radiculitis: Code(s): M54.16 - Radiculopathy, lumbar region Category: Medical (4) Difficulty sleeping: Code(s): G47.9 - Sleep disorder, unspecified Category: Medical (5) Tobacco dependence: Code(s): F17.200 - Nicotine dependence, unspecified, uncomplicated Category: Medical (6) LFT elevation: Code(s): R79.89 - Other specified abnormal findings of blood chemistry Category: Medical (7) Lipid disorder: Code(s): E78.9 - Disorder of lipoprotein metabolism, unspecified Category: Medical (8) Lipid disorder: Code(s): E78.9 - Disorder of lipoprotein metabolism, unspecified Category: Medical (9) Tired: Code(s): R53.83 - Other fatigue Category: Medical Plan History The patient is a 69-year-old female presenting for follow-up on chronic conditions management. - Type 2 Diabetes Mellitus with an HbA1c level of 7.1%. The patient is on Metformin. - Experiences generalized fatigue but anemia is not detected; medication side e ffects and aging are potential factors. 1. Hyperlipidemia Lipid profile shows elevated LDL of 165. Discussed the previous adverse effects from statin therapy. Currently taking fenofibrate and is due for labs 2. Hypertension Blood pressure readings are within target range, without medication at this time 3. Degenerative Lumbar Disease Identified as a long-standing issue with recent exacerbation impacting the patient's mobility. Current management includes symptomatic relief and discussion of limiting physical activities that exacerbate pain. Encourage regular follow-up for assessment and management of degenerative changes. Taking oxycodone as needed no script was provided this visit 4. Gastroesophageal Reflux Disease Suspected Dietary habits possibly contributing to symptoms. Recommending lifestyle and diet adjustments to limit triggering foods, such as acidic or spicy foods. Discussed risks and benefits of starting an antacid or H2-receptor antagonist if symptoms persist. 5. Type 2 Diabetes Mellitus A1c is 7.1, same as before continue metformin 6- anxiety: Patient is on lorazepam, no script provided this visit Problem List - Type 2 Diabetes Mellitus - Hyperlipidemia - Degenerative Lumbar Disease - Gastroesophageal Reflux Disease (suspected) - Hypertension (controlled) Medications - Aspirin for cardiovascular prophylaxis. - Vitamin D supplementation. - Fenofibrate for hyperlipidemia management. - Lorazepam for anxiety. - Metformin for Type 2 Diabetes Mellitus. - Oxycodone for pain management. - Simvastatin for hyperlipidemia. Diagnostic results - Labs: - Glycated Hemoglobin (HbA1c): 7.1% - LDL Cholesterol: 165 mg/dL (from April) - Tests and Diagnostics: - Echocardiogram: Normal left ventricular systolic function, ejection fraction 54%, no valvular pathology. Patient Instructions - Continue current medications for diabetes, hyperlipidemia, and hypertension. - Repeat lab tests for cholesterol monitoring before the next scheduled appointment. - Monitor symptoms of fatigue; contact the office if symptoms worsen. - Maintain fasting prior to upcoming lab tests. Orders: Orders Complete Blood Count Auto Diff Today E13.9 - Other specified diabetes mellitus without complications, E78.9 - Disorder of lipoprotein metabolism, unspecified, F17.200 - Nicotine dependence, unspecified, uncomplicated, F41.1 - Generalized anxiety disorder, G47.9 - Sleep disorder, unspecified, M54.16 - Radiculopathy, lumbar region, R79.89 - Other specified abnormal findings of blood chemistry Comprehensive [place]. Panel Fast Today E13.9 - Other specified diabetes mellitus without complications, E78.9 - Disorder of lipoprotein metabolism, unspecified, F17.200 - Nicotine dependence, unspecified, uncomplicated, F41.1 - Generalized anxiety disorder, G47.9 - Sleep disorder, unspecified, M54.16 - Radiculopathy, lumbar region, R79.89 - Other specified abnormal findings of blood chemistry Microalbumin, Random (w Creat) Today E13.9 - Other specified diabetes mellitus without complications, E78.9 - Disorder of lipoprotein metabolism, unspecified, F17.200 - Nicotine dependence, unspecified, uncomplicated, F41.1 - Generalized anxiety disorder, G47.9 - Sleep disorder, unspecified, M54.16 - Radiculopathy, lumbar region, R79.89 - Other specified abnormal findings of blood chemistry Lipid Panel Today E13.9 - Other specified diabetes mellitus without complications, E78.9 - Disorder of lipoprotein metabolism, unspecified, F17.200 - Nicotine dependence, unspecified, uncomplicated, F41.1 - Generalized anxiety disorder, G47.9 - Sleep disorder, unspecified, M54.16 - Radiculopathy, lumbar region, R79.89 - Other specified abnormal findings of blood chemistry Hemoglobin A1c Today E13.9 - Other specified diabetes mellitus without complications, E78.9 - Disorder of lipoprotein metabolism, unspecified, F17.200 - Nicotine dependence, unspecified, uncomplicated, F41.1 - Generalized anxiety disorder, G47.9 - Sleep disorder, unspecified, M54.16 - Radiculopathy, lumbar region, R79.89 - Other specified abnormal findings of blood chemistry AMB Hemoglobin A1c Today Z13.9 - Encounter for screening, unspecified
== END 2024-08-21 10:04 | disposition home or self-care (01) ==
LOC: HO.HMCC 09:04
PROVIDERS: PCP Internal Medicine; Visit Provider Internal Medicine
DX: E13.9 Other specified diabetes mellitus without complications (principal); F41.1 Generalized anxiety disorder; M54.16 Radiculopathy, lumbar region; G47.9 Sleep disorder, unspecified; F17.200 Nicotine dependence, unspecified, uncomplicated; R79.89 Other specified abnormal findings of blood chemistry; E78.9 Disorder of lipoprotein metabolism, unspecified; R53.83 Other fatigue; Z13.9 Encounter for screening, unspecified

== ENCOUNTER → 2024-08-21 09:03 | Outpatient (BNVA) | payer MEDICARE, OTHER, SELFPAY | PROVIDERS: PCP Internal Medicine; Visit Provider Internal Medicine | DX: E13.9 Other specified diabetes mellitus without complications (principal); F41.1 Generalized anxiety disorder; M54.16 Radiculopathy, lumbar region; G47.9 Sleep disorder, unspecified; R79.89 Other specified abnormal findings of blood chemistry; E78.9 Disorder of lipoprotein metabolism, unspecified; R53.83 Other fatigue; F17.200 Nicotine dependence, unspecified, uncomplicated; Z71.6 Tobacco abuse counseling | CPT/HCPCS: 83036; 96127; 99212 ==

== ENCOUNTER 2024-11-03 06:02 | Outpatient (REF) | payer MEDICARE, OTHER, SELFPAY ==
--- OUTSIDE RECORDS SUMMARY | 2024-11-03 06:04 | XMS_ITS | Patient Health Record ---
Author Organization [facility] Address [address] [place] [id number] Care Team Providers Care Hook Up Driver Name Role Phone Brendan DUTTON, [facility] Primary [facility] Provider Jian Beckham [phone] Allergies Allergen (clinical drug ingredient) Drug/Non Drug Allergy documented on EMR Reaction Allergy Type Onset Date Status Levaquin Unknown Drug Allergy Active varenicline Chantix Unknown Drug Allergy Activ e Reason For Referral No Information Medications Medication SIG (Take, Route, Frequency, Duration) Notes [...] ce a day Active Vitamin D (Ergocalciferol) 88569 UNIT 1 capsule Orally ONCE A WEEK Active Immunizations Vaccine Route Administration Date Status Comme nts Influenza Unknown 01/24/2022 Refused Problems Problem Type SNOMED Code ICD Code Onset Dates Problem Status W/U Status Risk Notes Problem 213890715 Encounter for screening for malignant neoplasm of colon (Z12.11) Active confirmed Problem 202488024 History of adenomatous polyp of colon (Z86.010) Active confirmed Problem Constipation (62154440) Constipation (K59.00) Active confirmed Problem Change in bowel habit (92257266) Change in bowel habits (R19.4) Active confirmed Problem Screening for malignant neoplasm of rectum (462007374) Encounter for screening for malignant neoplasm of rectum (Z12.12) Active confirmed Problem 851135751 Long-term use of aspirin therapy (Z79.82) Active confirmed Problem Family history of malignant neoplasm of gastrointestinal tract (857796737) Family history of colon cancer in father (Z80.0) Active confirmed Problem Diverticulosis of colon (724127270) Diverticulosis of colon (K57.30) Active confirmed Plan Of Treatment Future Test Test Name Order Date COLONOSCOPY 08/03/2015 COLONOSCOPY 01/24/2022 Insurance Providers Payer Name Payer Address Payer Phone Subscriber Number Group Number Insured Name Patient Relationship to Insured Coverage Start Date Coverage End Date MED[place] [address] [place] [address] [id number] CANDELARIO NUNN Self - patient is the insured [employer] [address] [place] [address] [id number] CANDELARIO NUNN Self - patient is the insured Medical (General) History Medical History History ICD Code Colonoscopy 10-31-2001--1 small tubular ad enoma, internal hemorrhoids Anxiety Urinary bladder cancer treated by cystos copy in 2000 Hyperlipidemia Denies LA,CVA,Lung disease,renal disease Negative screening colonoscopy in 11/2015 NIDDM Lumbar spine arthritis Surgical History Surgery Date(Month/Year) Hysterectomy and removal of one ovary Bladder suspension Cystoscopy for bladder cancer Lipoma
[2024-11-03 10:30] LABS: MANUAL DIFF FLAG NO
[2024-11-03 10:33] LABS: Basophils Percent Auto 0.5 % (0-2); Eosinophils Absolute Auto 0.2 X10*3/uL (0.0-0.4); Eosinophils Percent Auto 2.1 % (0-4); Hematocrit 43.3 % (37.0-47.0); Hemoglobin 14.2 g/dl (12.0-16.0); Imm Gran Abs Auto 0.02 X10*3/uL (0.00-0.03); Imm Gran Pct Auto 0.3 % (0.0-0.4); Lymphocytes Absolute Auto 2.6 X10*3/uL (1.2-4.9); Lymphocytes Percent Auto 33.9 % (20-40); Mean Corpuscular HGB Conc 32.8 g/dl (31.0-35.0); Mean Corpuscular Hemoglobin 32.1 pg (27.0-33.0); Mean Platelet Volume 10.8 fL (9.4-12.3); Monocytes Absolute Auto 0.6 X10*3/uL (0.1-1.2); Monocytes Percent Auto 7.5 % (2-11); Neutrophils Absolute Auto 4.2 x10*3/uL (2.0-8.3); Neutrophils Percent Auto 55.7 % (45-73); Platelet Count 234 X10*3/uL (160-400); Red Blood Count 4.42 X10*6/uL (4.20-5.50); Red Cell Distribution Width 12.8 % (11.0-16.0); White Blood Count 7.6 X10*3/uL (4.8-10.8)
[2024-11-03 10:43] LABS: Alanine Aminotransferase 37 U/L (0-31); Albumin Level 4.8 g/dL (3.5-5.0); Alkaline Phosphatase 43 U/L (39-117); Anion Gap 15 (12-20); Aspartate Amino Transferase 37 U/L (5-31); Bilirubin Total 0.6 mg/dL (0.0-1.0); Blood Urea Nitrogen 13 mg/dL (9-16); Calcium 9.9 mg/dL (8.4-10.2); Carbon Dioxide 27 mmol/L (22-29); Chloride 108 mmol/L (96-108); Cholesterol 235 mg/dL (<200); Estimated Average Glucose 143 mg/dL; Estimated Glomerular Filt Rate > 60; Glucose Fasting 139 mg/dL (60-99); HDL Cholesterol 50 mg/dL (>40); Hemoglobin A1c % 6.6 % (<6.0); LDL Cholesterol Calculated 152 mg/dL (<100); Potassium 4.6 mmol/L (3.3-5.1); Sodium 145 mmol/L (135-145); Total Protein 7.2 g/dL (6.5-8.0); Triglycerides 166 mg/dL (<150)
[2024-11-03 11:22] LABS: Creatinine Urine 126.23 mg/dL; Microalbum/Creatinine Ratio Ur 8.7 ug/mg cr (<30)
== END 2024-11-03 06:03 | disposition home or self-care (01) ==
LOC: HO.HMGCLDS 06:02
PROVIDERS: PCP Internal Medicine; Visit Provider Internal Medicine
DX: E13.9 Other specified diabetes mellitus without complications (principal); F41.1 Generalized anxiety disorder; M54.16 Radiculopathy, lumbar region; G47.9 Sleep disorder, unspecified; F17.200 Nicotine dependence, unspecified, uncomplicated; R79.89 Other specified abnormal findings of blood chemistry; E78.9 Disorder of lipoprotein metabolism, unspecified
CPT/HCPCS: 36415; 80053; 80061; 82043; 82570; 83036; 85025

== ENCOUNTER 2024-11-06 08:41 | Outpatient (AMB) | payer MEDICARE, OTHER, SELFPAY ==
[2024-11-06 08:43] VITALS: BP 128/66; PULSE 97; RESP 17; O2SAT 94; BMI 25.0
--- NOTE | 2024-11-06 08:43 | A.OFFPC_ITS ---
Vital Signs 11/06/24 08:43 Height 5 ft 5 in Weight 150 lb 8 oz BMI 25.0 BP 128/66 Blood Pressure Location Rt brachial Position Sitting Respiration 17 Pulse 97 Pulse Source Pulse Oximeter Pulse Oximetry (%) 94 Oxygen Delivery Method Room Air Intake Visit Reasons: 3 month med follow up Allergies levofloxacin [From LEVAQUIN] Allergy (Intermediate, Verified 11/06/24 08:47) RED LINE UP ARM FROM IV SITE, redness, itching, swelling barium sulfate Adverse Reaction (Intermediate, Verified 11/06/24 08:47) agitation varenicline Adverse Reaction (Intermediate, Verified 11/06/24 08:47) agitation Medication List - Last Reconciled 11/06/24 by Maciel Cardona MD albuterol sulfate 90 mcg/actuation (Ventolin HFA) 1 inh inhalation QID PRN 30 days aspirin (Adult Aspirin Regimen) 81 mg PO DAILY bimatoprost 0.01% 1 drp ophthalmic (eye) BEDTIME brimonidine 0.2% 1 drp ophthalmic (eye) BID cholecalciferol (vitamin D3) 25 mcg PO DAILY dorzolamide 2% 1 drp ophthalmic (eye) DAILY fenofibrate 160 mg PO DAILY 90 days lorazepam 0.5 mg PO DAILY PRN 90 days metformin 500 mg PO BID 90 days multivitamin 1 tab PO DAILY oxycodone 5 mg PO ONCE PRN 30 days simvastatin 20 mg PO DAILY 90 days Tobacco use date assessed: 11/06/24 Fall risk assessment: No Falls in past year Last assessed Fall Risk: 11/06/24 Dental Screening Dental Screen Date: 08/21/24 HPI 3 month med follow up HPI Details History - The patient is a 69 year old female pr esenting with presyncope episodes. - Reports dizziness and almost blacking out on two occasions: once while shopping at [employer] and another while entering [employer]. - Episodes began more than a month ago, with feelings of dizziness sometimes occurring when laying down. - No complete loss of consciousness repo rted, but intense feelings of impending fainting. - No sitting or standing triggering even ts noted. - Describes episodes as sudden onset wit h resolutions upon sitting or lying down. - Drinking water was inconsistent at the time; suspect dehydration as a potential factor. - During severe episodes, reports hearin g voices without being able to respond and a temporary loss of vision. - Previous echocardiogram in April no ronen normal ventricular function. Medical History: - Hyperlipidemia - Type 2 Diabetes Mellitus - anxiety - ch back pain - Presyncope episodes, as currently disc ussed Medications: - Simvastatin 20 mg every other day for hyperlipidemia - Metformin 500 mg twice daily for Type 2 Diabetes Mellitus - Fenofibrate for hyperlipidemia - Lorazepam as needed - Oxycodone, necessity mentioned, dosage not specified Social History: - Has a daughter whose behavior has been challenging due to substance abuse issues and marital troubles. Diagnostic Results: - Labs: - Complete Blood Count (CBC) nor mal - Hemoglobin levels normal - Electrolytes within normal range - Hemoglobin A1c improved from 7.1 to 6. 6 - Liver enzymes stable - LDL cholesterol improved from 165 to 1 52 - Tests and Diagnostics: - Echocardiogra m in April with normal ventricular systolic function and ejection fraction of 54%, no obvious valvular pathology. Problem List - Hyperlipidemia - Type 2 Diabetes Mellitus - Presyncope - DJD lumbar spine - anxiety - chronic GERD Patient Instructions - Drink plenty of water regularly to pre vent dehydration. - Sit or lie down immediately if dizzy o r feeling faint. - Ensure sufficient water intake, especi ally after getting up in the morning. - Reminder of upcoming appointment sched [facility] for February 12 at 9:00 AM. - Carotid US ordered - notify me if it start happening more f req Review of Systems - General: No fever no chills - Neurological: No headaches - Ear nose throat: No sore throat no hearing difficulty no ear pain - Cardiovascular: No syncope, no chest pain, no palpitations - Gastrointestinal: No nausea vomiting or diarrhea - Endocrine: No polyuria polydipsia no heat intolerance - Genitourinary: No dysuria , no blood in urine Physical Exam - General: No acute distress - HEENT: No acute findings - Neck: Supple - Respiratory system: Able to talk in f ull sentences, no audible wheeze - Cardiovascular: S1-S2 regular in rate and rhythm - Gastrointestinal: No pain - Extremities: No new findings - 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 HONING: Alert awake oriented x3 motor se nsory intact , non focal - Skin: Normal turgor [facility] Medical History Fatty liver Bruit (arterial) Hx of lipoma Arthritis Anxiety Renal calculi Family history of colon cancer in father Family history of throat cancer Endometriosis Hyperlipidemia 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 Maternal Grandfather No problems noted. Paternal Grandfather No problems noted. Paternal Grandmother No problems noted. Sister No problems noted. Sister No problems noted. Son No problems noted. Daughter No problems noted. Daughter Substance use disorder Social History Housing: House Alcohol intake: never Patient Tobacco Use Status: Current everyday Tobacco user Tobacco use type: Cigarette Cigarette Packs Per Day: 0.5 Cigarettes Per Day: 10 e-Cigarette/Vaping Use: Never Used Second Hand Smoke Exposure: Yes service: No Current occupational status: retired Cognitive needs: No Hearing needs: No Vision needs: Yes Questionnaire Thrive Questionnaire Date Thrive assessed: 11/06/24 I am a: Patient What is your living situation today?: I have a steady place to live Within the past 12 months, did the food you bought not last and you didn't have the money to get more?: Never true Within the past 12 months, did you worry whether your food would run out before you got money to buy more?: Never true Do you have trouble paying for medicines?: No Do you have trouble getting transportation to medical appointments?: No Do you have trouble paying your heating and electricity bill?: No Do you have trouble taking care of your child, family member or friend?: No Do you have trouble with day-to-day activities such as bathing, preparing meals, shopping, managing finances, etc.?: No Are you currently unemployed and looking for a job?: No Are you interested in more education?: No Please select the resources that you would like help with: None Currently or been in a relationship where the following occur: No concerns reported THRIVE Score: 0 AUDIT C Alcohol Use Questionnaire (AUDIT-C) 1. How often do you have a drink containing alcohol?: Monthly or less 2. How many drinks containing alcohol do you have on a typical day when you are drinking?: 1 or 2 3. How often do you have six or more drinks on one occasion?: Never Total Score: 1 Score Reviewed/Action Taken: Yes HARSHIL-7 AMB Questionnaire HARSHIL-7 Date HARSHIL - 7 assessed: 08/21/24 Source: Developed by Drs. Jian Contreras, Florina Almanzar, Lionel Subramanian and colleagues, with an educational hipolito from [employer]. Physical exam (Primary Care) Vital Signs: Last Vital Signs Pulse 97 11/06/24 08:43 Resp 17 11/06/24 08:43 BP 128/66 11/06/24 08:43 Pulse Ox 94 11/06/24 08:43 Oxygen Delivery Method Room Air 11/06/24 08:43 BMI result Body Mass Index 25.0 Tobacco/Smoking Status: Tobacco use Status Tobacco use date assessed 11/06/24 11/06/24 08:50 Patient Tobacco Use Status Current everyday Tobacco 11/06/24 08:44 Tobacco use type Cigarette 11/06/24 08:44 e-Cigarette/Vaping Use Never Used 11/06/24 08:44 Thrive Assessment: Date of Thrive Assessment Date Thrive assessed 11/06/24 11/06/24 08:50 Currently or been in a relationship where the following occur: No concerns reported Coding Level of Care Code Est Pt Level 5 (31655) Diagnoses Pre-syncope R55 Dizziness R42 Diabetes 1.5, managed as type 2 E13.9 Anxiety, generalized F41.1 Left lumbar radiculitis M54.16 Difficulty sleeping G47.9 Tobacco dependence F17.200 LFT elevation R79.89 Lipid disorder E78.9 Time Spent (min) 40 Comment reviewing chart/ labs/ face to face/ co ordination of care Assessment & Plan Assessment & Plan (1) Pre-syncope: Code(s): R55 - Syncope and collapse Category: Medical (2) Dizziness: Code(s): R42 - Dizziness and giddiness Category: Medical (3) Diabetes 1.5, managed as type 2: Code(s): E13.9 - Other specified diabetes mellitus without complications Category: Medical (4) Anxiety, generalized: Code(s): F41.1 - Generalized anxiety disorder Category: Medical (5) Left lumbar radiculitis: Code(s): M54.16 - Radiculopathy, lumbar region Category: Medical (6) Difficulty sleeping: Code(s): G47.9 - Sleep disorder, unspecified Category: Medical (7) Tobacco dependence: Code(s): F17.200 - Nicotine dependence, unspecified, uncomplicated Category: Medical (8) LFT elevation: Code(s): R79.89 - Other specified abnormal findings of blood chemistry Category: Medical (9) Lipid disorder: Code(s): E78.9 - Disorder of lipoprotein metabolism, unspecified Category: Medical Plan History - The patient is a 69 year old female presenting with presyncope episodes. - Reports dizziness and almost blacking out on two occasions: once while shoppin g at [employer] and another while entering [employer]. - Episodes began more than a month ago, with feelings of dizziness sometimes occurring when laying down. - No complete loss of consciousness reported, but intense feelings of impending fainting. - No sitting or standing triggering events noted. - Describes episodes as sudden onset with resolutions upon sitting or lying down. - Drinking water was inconsistent at the time; suspect dehydration as a potential factor. - During severe episodes, reports hearing voices without being able to respond and a temporary loss of vision. - Previous echocardiogram in April noted normal ventricular function. Medical History: - Hyperlipidemia - Type 2 Diabetes Mellitus - anxiety - ch back pain - Presyncope episodes, as currently discussed Medications: - Simvastatin 20 mg every other day for hyperlipidemia - Metformin 500 mg twice daily for Type 2 Diabetes Mellitus - Fenofibrate for hyperlipidemia - Lorazepam as needed - Oxycodone, necessity mentioned, dosage not specified Social History: - Has a daughter whose behavior has been challenging due to substance abuse issues and marital troubles. Diagnostic Results: - Labs: - Complete Blood Count (CBC) normal - Hemoglobin levels normal - Electrolytes within normal range - Hemoglobin A1c improved from 7.1 to 6.6 - Liver enzymes stable - LDL cholesterol improved from 165 to 152 - Tests and Diagnostics: - Echocardiogram in April with normal ventricular systolic function and ejection fraction of 54%, no obvious valvular pathology. Problem List - Hyperlipidemia - Type 2 Diabetes Mellitus - Presyncope - DJD lumbar spine - anxiety Patient Instructions - Drink plenty of water regularly to prevent dehydration. - Sit or lie down immediately if dizzy or feeling faint. - Ensure sufficient water intake, especially after getting up in the morning. - Reminder of upcoming appointment scheduled for February 12 at 9:00 AM. - Carotid US ordered - notify me if it start happening more freq stop smoking Orders: Orders US carotid duplex BI Today R42 - Dizziness and giddiness, R55 - Syncope and collapse Medications: Refilled fenofibrate 160 mg PO DAILY 90 days 90 tabs 1RF E78.9 - Disorder of lipoprotein metabolism, unspecified metformin 500 mg PO BID 90 days 180 tabs 1RF E13.9 - Other specified diabetes mellitus without complications simvastatin 20 mg PO DAILY 90 days 90 tabs 1RF E78.9 - Disorder of lipoprotein metabolism, unspecified lorazepam 0.5 mg PO DAILY 90 days PRN 45 tabs 0RF sleep G47.9 - Sleep disorder, unspecified oxycodone partial refill permitted 5 mg PO ONCE 30 days PRN 30 tabs 0RF pain
--- OUTSIDE RECORDS SUMMARY | 2024-11-06 08:52 | XMS_ITS | Patient Health Record ---
Author Organization [facility] Address [address] [place] [id number] Care Team Providers Care Automation Tech Name Role Phone Brendan DUTTON, [facility] Primary Care Provider Jian Beckham [phone] Allergies Allergen (clinical drug ingredient) Drug/Non Drug [...] ce a day Active Vitamin D (Ergocalciferol) 62786 UNIT 1 capsule Orally ONCE A WEEK Active Immunizations Vaccine Route Administration Date Status Comme nts Influenza Unknown 01/24/2022 Refused Problems Problem Type SNOMED Code ICD Code Onset Dates Problem Status W/U Status Risk Notes Problem 368204426 Encounter for screening for malignant neoplasm of colon (Z12.11) Active confirmed Problem 579449081 History of adenomatous polyp of colon (Z86.010) Active confirmed Problem Constipation (58724699) Constipation (K59.00) Active confirmed Problem Change in bowel habit (71248348) Change in bowel habits (R19.4) Active confirmed Problem Screening for malignant neoplasm of rectum (652026563) Encounter for screening for malignant neoplasm of rectum (Z12.12) Active confirmed Problem 322159646 Long-term use of aspirin therapy (Z79.82) Active confirmed Problem Family history of malignant neoplasm of gastrointestinal tract (209811614) Family history of colon cancer in father (Z80.0) Active confirmed Problem Diverticulosis of colon (290292616) Diverticulosis of colon (K57.30) Active confirmed Plan Of Treatment Future Test Test Name Order Date COLONOSCOPY 08/03/2015 COLONOSCOPY 01/24/2022 Insurance Providers Payer Name Payer Address Payer Phone Subscriber Number Group Number Insured Name Patient Relationship to Insured Coverage Start Date Coverage End Date [place] [address] [place] [address] [id number] CANDELARIO NUNN Self - patient is the insured [id number] [address] [place] [address] [id number] CANDELARIO NUNN Self - patient is the [...]
== END 2024-11-06 09:22 | disposition home or self-care (01) ==
LOC: HO.HMCC 08:41
PROVIDERS: PCP Internal Medicine; Visit Provider Internal Medicine
DX: R55 Syncope and collapse (principal); E13.9 Other specified diabetes mellitus without complications; R42 Dizziness and giddiness; F41.1 Generalized anxiety disorder; M54.16 Radiculopathy, lumbar region; G47.9 Sleep disorder, unspecified; F17.200 Nicotine dependence, unspecified, uncomplicated; R79.89 Other specified abnormal findings of blood chemistry; E78.9 Disorder of lipoprotein metabolism, unspecified

== ENCOUNTER → 2024-11-06 08:41 | Outpatient (BNVA) | payer MEDICARE, OTHER, SELFPAY | PROVIDERS: PCP Internal Medicine; Visit Provider Internal Medicine | DX: R55 Syncope and collapse (principal); R42 Dizziness and giddiness; E13.9 Other specified diabetes mellitus without complications; F41.1 Generalized anxiety disorder; M54.16 Radiculopathy, lumbar region; G47.9 Sleep disorder, unspecified; R79.89 Other specified abnormal findings of blood chemistry; E78.9 Disorder of lipoprotein metabolism, unspecified; F17.200 Nicotine dependence, unspecified, uncomplicated; Z71.6 Tobacco abuse counseling | CPT/HCPCS: 99212 ==

== ENCOUNTER 2024-12-09 13:52 | Outpatient (REF) | payer MEDICARE, OTHER, SELFPAY ==
--- NOTE | ~2024-12-09 | US_ITS ---
CLINICAL HISTORY: R55 - Syncope and collapse US bilateral carotid duplex Comparison: None Provided Findings: Waveforms demonstrate normal pattern. Peak systolic velocities: Right CCA: 113 cm/s Right ICA: 186 cm/s ICA/CCA ratio: 1.7 Right ECA: Unremarkable Right vertebral artery flow antegrade. Mild vertebral artery plaque noted. Mild carotid artery plaque noted. Left CCA: 153 cm/s Left ICA: 162 cm/s ICA/CCA ratio: 1.1 Left ECA: Unremarkable Left vertebral artery flow antegrade. Mild vertebral artery plaque. Mildcarotid artery plaque noted. Impression: Mild elevated right internal carotid velocity consistent with mild stenosis No significant disease in the left This document has been electronically signed by: Carlos A Giordano MD on 12/09/2024 19:19:37
--- OUTSIDE RECORDS SUMMARY | 2024-12-09 14:42 | XMS_ITS | Patient Health Record ---
Author Organization [facility] Address [address] [place] [id number] Care Team Providers Care Vp Ancillary Name Role Phone Brendan [facility], [facility] Primary Care Provider Jian Beckham [phone] Allergies Allergen (clinical drug ingredient) Drug/Non Drug [...] ce a day Active Vitamin D (Ergocalciferol) 08086 UNIT 1 capsule Orally ONCE A WEEK Active Immunizations Vaccine Route Administration Date Status Comme nts Influenza Unknown 01/24/2022 Refused Problems Problem Type SNOMED Code ICD Code Onset Dates Problem Status W/U Status Risk Notes Problem 705554473 Encounter for screening for malignant neoplasm of colon (Z12.11) Active confirmed Problem 860461689 History of adenomatous polyp of colon (Z86.010) Active confirmed Problem Constipation (57172043) Constipation (K59.00) Active confirmed Problem Change in bowel habit (77650589) Change in bowel habits (R19.4) Active confirmed Problem Screening for malignant neoplasm of rectum (220989869) Encounter for screening for malignant neoplasm of rectum (Z12.12) Active confirmed Problem 631492555 Long-term use of aspirin therapy (Z79.82) Active confirmed Problem Family history of malignant neoplasm of gastrointestinal tract (245856045) Family history of colon cancer in father (Z80.0) Active confirmed Problem Diverticulosis of colon (041279042) Diverticulosis of colon (K57.30) Active confirmed Plan Of Treatment Future Test Test Name Order Date COLONOSCOPY 08/03/2015 COLONOSCOPY 01/24/2022 Insurance Providers Payer Name Payer Address Payer Phone Subscriber Number Group Number Insured Name Patient Relationship to Insured Coverage Start Date Coverage End Date [place] OF [place] [address] [place] [address] [id number] CANDELARIO NUNN Self - patient is the insured [employer] [address] [place] [address] [id number] CANDELARIO NUNN Self - patient is the insured Medical (General) History Medical History History ICD Code Colonoscopy 10-31-2001--1 small tubular ad enoma, internal hemorrhoids Anxiety Urinary bladder cancer treated by cystos copy in 2000 Hyperlipidemia Denies SC,CVA,Lung disease,renal disease Negative screening colonoscopy in 11/2015 NIDDM Lumbar spine arthritis Surgical History Surgery Date(Month/Year) Hysterectomy and removal of one ovary Bladder suspension Cystoscopy for bladder cancer Lipoma
== END 2024-12-09 13:53 | disposition home or self-care (01) ==
LOC: HO.HMGCX 13:52
PROVIDERS: PCP Internal Medicine; Visit Provider Internal Medicine
DX: R42 Dizziness and giddiness (principal); R55 Syncope and collapse
CPT/HCPCS: 93880

== ENCOUNTER → 2024-12-09 13:53 | Outpatient (BNV) | payer MEDICARE, OTHER, SELFPAY | PROVIDERS: PCP Internal Medicine; Visit Provider Radiology Diagnostic Radiology | DX: I65.21 Occlusion and stenosis of right carotid artery (principal) | CPT/HCPCS: 93880 ==

== ENCOUNTER 2025-02-12 08:44 | Outpatient (AMB) | payer MEDICARE, OTHER, SELFPAY ==
[2025-02-12 08:53] VITALS: BP 118/68; PULSE 90; O2SAT 95; BMI 24.0
--- NOTE | 2025-02-12 08:53 | A.OFFVIS_ITS ---
Intake Vital Signs 02/12/25 08:53 Height 5 ft 5 in Weight 144 lb BMI 24.0 BP 118/68 Blood Pressure Location Rt brachial Position Sitting Pulse 90 Pulse Source Pulse Oximeter Pulse Oximetry (%) 95 Intake Visit Reasons: AWV Consumer Services Consultant Required: No Accompanied by: Self / Same As Patient Allergies levofloxacin (From LEVAQUIN) Allergy (Intermediate, Verified 02/12/25 08:53) RED LINE UP ARM FROM IV SITE, redness, itching, swelling barium sulfate Adverse Reaction (Intermediate, Verified 02/12/25 08:53) agitation varenicline Adverse Reaction (Intermediate, Verified 02/12/25 08:53) agitation Medication List - Last Reconciled 02/12/25 by Maciel Cardona MD albuterol sulfate 90 mcg/actuation (Ventolin HFA) 1 inh inhalation QID PRN 30 days aspirin (Adult Aspirin Regimen) 81 mg PO DAILY bimatoprost 0.01% 1 drp ophthalmic (eye) BEDTIME cholecalciferol (vitamin D3) 25 mcg PO DAILY dorzolamide 2% 1 drp ophthalmic (eye) DAILY fenofibrate 160 mg PO DAILY 90 days lorazepam 0.5 mg PO DAILY PRN 90 days metformin 500 mg PO BID 90 days multivitamin 1 tab PO DAILY oxycodone 5 mg PO ONCE PRN 30 days simvastatin 20 mg PO DAILY 90 days Is last menstrual period known: No Post menopausal: No Patient : No Do you need a note to return to daycare/school/sports/work: No HPI AWV HPI Details History of Present Illness The patient is a 69 year old female presenting with chronic back pain. Chronic back pain: - History of multilevel lumbar spondylos is, worsening each year. - Primarily affecting the L5-S1 segment with arthritic changes noted in previous imaging. - Utilizes oxycodone seasonally, particu larly effective during summer months. - Increased discomfort noted during cold nights and specific movement due to underlying conditions. Medical History: - History of elevated cholesterol and pa st use of simvastatin. - Past issues with slightly elevated willa er enzymes. - Chronic use of metformin for maintenan ce of diabetes, with latest HbA1c at 6.6%. - History of arthritis noted in previous medical exams. - Chronic back pain due to lumbar spondy losis and degenerative disc disease. Medications: - Fenofibrate 160 mg for cholesterol man agement. - Lorazepam 0.5 mg, usage not specified but available if needed. - Metformin 500 mg twice daily for diabe marv management. - Oxycodone 5 mg as needed for chronic b ack pain. - Daily aspirin therapy for blood pressu re stabilization. Social History: - Lives at home with daughter, but yvette reynolds family dynamics include difficulty with daughter's involvement in drug abuse. - States she is not sexually active sin e age 55. - Prefers not engaging in routine mammog johny due to concerns about discomfort and perceived harm. - Independently ambulatory, though activ ity limited by lower back and hip issues. Diagnostic Results: - Labs: HbA1c at 6.6%; LDL at 152. - Imaging: Prior X-ray indicating multil evel lumbar spondylosis and degenerative disc disease. Problem List - Chronic Back Pain secondary to Lumbar Spondylosis - Degenerative Disc Disease - Elevated Cholesterol - Type 2 Diabetes Mellitus - Hypertension Patient Instructions - Continue prescribed medications as dis cussed for pain management and diabetes. - Proceed with planned healthcare proxy documentation completion. - Follow the outlined timeline for labor atory testing and next clinical assessment. - Consider bringing healthcare proxy pap erwork and updated lab results to the next scheduled appointment in April. Review of Systems - General: No fever no chills - Neurological: No headaches no dizziness - Ear nose throat: No sore throat no hearing difficulty no ear pain - Cardiovascular: No syncope, no chest pain, no palpitations - Gastrointestinal: No nausea vomiting or diarrhea - Endocrine: No polyuria polydipsia no heat intolerance - Genitourinary: No dysuria , no blood in urine Physical Exam - General: No acute distress - HEENT: No acute findings - Neck: Supple - Respiratory system: Able to talk in f ull sentences, no audible wheeze - Cardiovascular: S1-S2 regular in rate and rhythm - Gastrointestinal: No pain - Extremities: No new findings - 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 HPI Comments History of Present Illness Details AWV Medical/social history reviewed Past medical history reviewed [place] of care / care team list updated Surgical/ hospitalization history reviewed Current medications including OTC and supplements reviewed Family history reviewed Tobacco controlled form updated Alcohol use form updated Illicit drug use in social history reviewed Current diagnosis of depression ?screening updated Appropriate PHQ 2/PHQ-9 completed . Vital signs reviewed Alcohol tobacco drug use reviewed and discussed . MMSE completed . ? Fall risk: ?Assessed Fall history: ?None Have you had any falls with injury in the past year?? No Have you had 2 or more falls in the past year?? No Fall risk assessment completed Home safety discussed with the patient Functional ability assessed and discussed and documented Activities of daily living reviewed and appropriate actions taken . HRA filled out by the patient and reviewed by provider and scanned . Appropriate written screening schedule established . Any health advise needed provided . Advance care planning discussed with the patient , necessary paperwork filled Examination IPPE/AWE: Balance intact Romberg intact Tandem walk intact walk-in turn intact rise from sit to stand intact . ?Hearing ?whisper test pass . Medication list reviewed, patient is stable on medications All other providers patient is seeing discussed and noted . 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 Maternal Grandfather No problems noted. Paternal Grandfather No problems noted. Paternal Grandmother No problems noted. Sister No problems noted. Sister No problems noted. Son No problems noted. Daughter No problems noted. Daughter Substance use disorder Social History Housing: House Alcohol intake: never Patient Tobacco Use Status: Current everyday Tobacco user Tobacco use type: Cigarette Cigarette Packs Per Day: 0.5 Cigarettes Per Day: 10 e-Cigarette/Vaping Use: Never Used Second Hand Smoke Exposure: Yes service: No Current occupational status: retired Cognitive needs: No Hearing needs: No Vision needs: Yes Questionnaire Medicare Wellness Checkup What [age] What gender do you identify with?: female During the past 4 weeks, how much have you been bothered by emotional problems such as feeling anxious, depressed, irritable, sad or downhearted, and blue?: slightly During the past 4 weeks, has your physical & emotional health limited your social activities with family, friends, neighbors, or groups?: not at all During the past 4 weeks, how much bodily pain have you generally had?: moderate pain During the past 4 weeks, was someone available to help you if you needed & wanted help?: yes, a little During the past 4 weeks, what was the hardest physical activity you could do for at least 2 minutes?: very light Can you get to places out of walking distance without help? (For eg., can you travel alone on buses, taxis or drive your car?): Yes Can you go shopping for groceries or clothes without someone's help?: Yes Can you prepare your own meals?: Yes Can you do your housework without help?: Yes Because of any health problems, do you need the help of another person with your personal care needs such as eating, bathing, dressing or getting around the house?: No Can you handle your own money without help?: Yes During the past 4 weeks, how would you rate your health in general?: good During the past 4 weeks how have things been going for you?: good & bad parts about equal Are you having difficulties driving your car?: no Do you always fasten your seat belt when you are in a car?: yes, usually During past 4 weeks, have you been bothered by the following: never: Sexual problems?, Teeth or denture problems? and Problems using the telephone?, seldom: Falling or dizzy when standing up and sometimes: Trouble eating well? and Tiredness or fatigue? Have you fallen 2 or more times in the past year?: No Are you afraid of falling?: Yes Are you a smoker?: yes, but I'm not ready to quit During the past 4 weeks, how many drinks of wine, beer, or other alcoholic beverages did you have?: no alcohol at all Do you exercise for about 20 minutes 3 or more times a week?: no, I usually do not exercise this much Have you been given information to help with the following?: no: Hazards in your house that might hurt you? and no: Keeping track of your medications? How often do you have trouble taking medicines the way you have been told to take them?: sometimes I take medicine as prescribed How confident are you that you can control & manage most of your health problems?: very confident What is your race?: White Mini Mental State Exam (MMSE) Orientation What is the (year) (season) (date) (day) (month)?: year, season, date, day and month Where are we (state) (county) (town or city) (hospital) (floor)?: state, county, town or city, hospital/clinic and floor Score Score: 10 Activity of Daily Living Bathing - sponge bath, tub bath or shower: receives no assistance (gets in/out by self, if usual bathing means Dressing - getting clothes from closets & drawers, including inner/outer garments & fasteners.: gets clothes & gets completely dressed without help Toileting - going to the 'toilet room' for urine/bowel elimination & cleaning self/arranging clothes: goes to toilet room, cleans self, arranges clothes without help Transfer: moves in & out of bed and chair without help (may use support object) Continence: controls urination/bowel movements completely by self Feeding: feeds self without help Total Score: 0 Information obtained from: patient Using telephone: independent Traveling: independent Shopping: independent Preparing meals: independent Housework: needs assistance Taking medicine: independent Managing money: independent PHQ-9 Over the last 2 weeks, how often have you been bothered by any of the following problems? 1. Little interest or pleasure in doing things: several days 2. Feeling down, depressed, or hopeless: not at all 3. Trouble falling or staying asleep, or sleeping too much: not at all 4. Feeling tired or having little energy: several days 5. Poor appetite or overeating: not at all 6. Feeling bad about yourself - or that you are a failure or have let yourself or your family down: not at all 7. Trouble concentrating on things, such as reading the newspaper or watching t elevision: not at all 8. Moving or speaking so slowly that other people could have noticed. Or the opposite - being so fidgety or restless that you have been moving around a lot more than usual: not at all 9. Thoughts that you would be better off or of hurting yourself in some way: not at all Total score: 2 Depression Screening Interpretation: Negative Depression Screening Done: Yes 33136 - PHQ-9 Billing: Yes Source: Developed by Drs. Jian Contreras, Florina Almanzar, Lionel Subramanian and colleagues, with an educational hipolito from [employer]. Physical Exam Vital Signs: Last Vital Signs Pulse 90 02/12/25 08:53 BP 118/68 02/12/25 08:53 Pulse Ox 95 02/12/25 08:53 BMI result Body Mass Index 24.0 Assessment & Plan Assessment & Plan (1) Medicare annual wellness visit, subsequent: Code(s): Z00.00 - Encounter for general adult medical examination without abnormal findings (2) Anxiety, generalized: Code(s): F41.1 - Generalized anxiety disorder (3) Lipid disorder: Code(s): E78.9 - Disorder of lipoprotein metabolism, unspecified (4) Diabetes 1.5, managed as type 2: Code(s): E13.9 - Other specified diabetes mellitus without complications (5) History of bladder cancer: Code(s): Z85.51 - Personal history of malignant neoplasm of bladder (6) Degenerative joint disease (DJD) of lumbar spine: Code(s): M47.816 - Spondylosis without myelopathy or radiculopathy, lumbar region Qualifiers: Spinal osteoarthritis complication: without myelopathy or radiculopathy Qualified Code(s): M47.816 - Spondylosis without myelopathy or radiculopathy, lumbar region (7) Facet arthropathy, lumbar: Code(s): M47.816 - Spondylosis without myelopathy or radiculopathy, lumbar region (8) Difficulty sleeping: Code(s): G47.9 - Sleep disorder, unspecified (9) Tobacco dependence: Code(s): F17.200 - Nicotine dependence, unspecified, uncomplicated Plan History of Present Illness The patient is a 69 year old female presenting with chronic back pain. Chronic back pain: - History of multilevel lumbar spondylosis, worsening each year. - Primarily affecting the L5-S1 segment with arthritic changes noted in previous imaging. - Utilizes oxycodone seasonally, particularly effective during summer months. - Increased discomfort noted during cold nights and specific movement due to underlying conditions. Medical History: - History of elevated cholesterol and past use of simvastatin. - Past issues with slightly elevated liver enzymes. - Chronic use of metformin for maintenance of diabetes, with latest HbA1c at 6.6%. - History of arthritis noted in previous medical exams. - Chronic back pain due to lumbar spondylosis and degenerative disc disease. Medications: - Fenofibrate 160 mg for cholesterol management. - Lorazepam 0.5 mg, usage not specified but available if needed. - Metformin 500 mg twice daily for diabetes management. - Oxycodone 5 mg as needed for chronic back pain. - Daily aspirin therapy for blood pressure stabilization. Social History: - Lives at home with daughter, but current family dynamics include difficulty with daughter's involvement in drug abuse. - States she is not sexually active since age 55. - Prefers not engaging in routine mammography due to concerns about discomfort and perceived harm. - Independently ambulatory, though activity limited by lower back and hip issues. Diagnostic Results: - Labs: HbA1c at 6.6%; LDL at 152. - Imaging: Prior X-ray indicating multilevel lumbar spondylosis and degenerative disc disease. Problem List - Chronic Back Pain secondary to Lumbar Spondylosis - Degenerative Disc Disease - Elevated Cholesterol - Type 2 Diabetes Mellitus - Hypertension Patient Instructions - Continue prescribed medications as discussed for pain management and diabetes. - Proceed with planned healthcare proxy documentation completion. - Follow the outlined timeline for laboratory testing and next clinical assessment. - Consider bringing healthcare proxy paperwork and updated lab results to the next scheduled appointment in April. Patient was informed and verbally consented to the use of an ambient scribe for clinic note documentation during this visit. Orders: Orders Hemoglobin A1c Today E13.9 - Other specified diabetes mellitus without complications, E78.9 - Disorder of lipoprotein metabolism, unspecified, F41.1 - Generalized anxiety disorder, G47.9 - Sleep disorder, unspecified, M47.816 - Spondylosis without myelopathy or radiculopathy, lumbar region, Z85.51 - Person al history of malignant neoplasm of bladder Complete Blood Count Auto Diff Today E13.9 - Other specified diabetes mellitus without complications, E78.9 - Disorder of lipoprotein metabolism, unspecified, F41.1 - Generalized anxiety disorder, G47.9 - Sleep disorder, unspecified, M47.816 - Spondylosis without myelopathy or radiculopathy, lumbar region, Z85.51 - Personal history of malignant neoplasm of bladder Comprehensive Met. Panel Today E13.9 - Other specified diabetes mellitus without complications, E78.9 - Disorder of lipoprotein metabolism, unspecified, F41.1 - Generalized anxiety disorder, G47.9 - Sleep disorder, unspecified, M47.816 - Spondylosis without myelopathy or radiculopathy, lumbar region, Z85.51 - Personal history of malignant neoplasm of bladder Microalbumin, Random (w Creat) Today E13.9 - Other specified diabetes mellitus without complications, E78.9 - Disorder of lipoprotein metabolism, unspecified, F41.1 - Generalized anxiety disorder, G47.9 - Sleep disorder, unspecified, M47.816 - Spondylosis without myelopathy or radiculopathy, lumbar region, Z85.51 - Personal history of malignant neoplasm of bladder UA CC w/rflx Micro + Cult Today Z85.51 - Personal history of malignant neoplasm of bladder LDL Cholesterol Direct Today E13.9 - Other specified diabetes mellitus without complications, E78.9 - Disorder of lipoprotein metabolism, unspecified, F41.1 - Generalized anxiety disorder, G47.9 - Sleep disorder, unspecified, M47.816 - Spondylosis without myelopathy or radiculopathy, lumbar region, Z85.51 - Personal history of malignant neoplasm of bladder Medications: Refilled oxycodone partial refill permitted 5 mg PO ONCE 30 days PRN 30 tabs 0RF pain oxycodone partial refill permitted 5 mg PO ONCE PRN 30 tabs 0RF pain 30 days lorazepam 0.5 mg PO DAILY PRN 45 tabs 0RF sleep 90 days G47.9 - Sleep disorder, unspecified Quality Reporting (2019) Depression/Bipolar (159/160/161/177) PHQ-9: Total score: 2 Coding Level of Care Code Medicare Subsequent (G0439) Est Pt Level 4 (21204) Diagnoses Medicare annual wellness visit, subsequent Z00.00 Anxiety, generalized F41.1 Lipid disorder E78.9 Diabetes 1.5, managed as type 2 E13.9 History of bladder cancer Z85.51 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 complication: without myelopathy or radiculopathy Facet arthropathy, lumbar M47.816 Difficulty sleeping G47.9 Tobacco dependence F17.200 Additional Codes PHQ-9 - 08895 - PHQ-9 Billing: Yes ([id number])
== END 2025-02-12 09:32 | disposition home or self-care (01) ==
LOC: HO.HMCC 08:44
PROVIDERS: PCP Internal Medicine; Visit Provider Internal Medicine
DX: Z00.00 Encounter for general adult medical examination without abnormal findings (principal); E13.9 Other specified diabetes mellitus without complications; F41.1 Generalized anxiety disorder; E78.9 Disorder of lipoprotein metabolism, unspecified; Z85.51 Personal history of malignant neoplasm of bladder; M47.816 Spondylosis without myelopathy or radiculopathy, lumbar region; G47.9 Sleep disorder, unspecified; F17.200 Nicotine dependence, unspecified, uncomplicated

== ENCOUNTER → 2025-02-12 08:44 | Outpatient (BNVA) | payer MEDICARE, OTHER, SELFPAY | PROVIDERS: PCP Internal Medicine; Visit Provider Internal Medicine | DX: Z00.00 Encounter for general adult medical examination without abnormal findings (principal); F41.1 Generalized anxiety disorder; E78.9 Disorder of lipoprotein metabolism, unspecified; E13.9 Other specified diabetes mellitus without complications; M47.816 Spondylosis without myelopathy or radiculopathy, lumbar region; G47.9 Sleep disorder, unspecified; Z85.51 Personal history of malignant neoplasm of bladder; F17.200 Nicotine dependence, unspecified, uncomplicated; Z71.6 Tobacco abuse counseling | CPT/HCPCS: 96127 ==

== ENCOUNTER 2025-05-17 06:09 | Outpatient (REF) | payer MEDICARE, OTHER, SELFPAY ==
--- OUTSIDE RECORDS SUMMARY | 2025-05-17 06:12 | XMS_ITS | Patient Health Record ---
Author Organization [facility] Address [address] [place] [id number] Care Team Providers Care Puff Ironer Name Role Phone Brendan DUTTON, [facility] Provider Jian Beckham [phone] Allergies Allergen (clinical drug ingredient) Drug/Non Drug Allergy documented on EMR Reaction Allergy Type Onset Date Status varenicline Chantix Unknown Drug Allergy Activ e Levaquin Unknown Drug Allergy Active Reason For Referral No Information Medications Medication SIG (Take, Route, Frequency, Duration) Notes Start Date End Date Status Multivitamin - Tablet 1 tablet Orally On ce a day; Duration: 30 day(s) Active Simvastatin 20 MG Tablet 1 tablet in the evening Orally Once a day; Duration: 30 day(s) Active metFORMIN HCl ER 500 MG Tablet Extended Release 24 Hour 1 tablet with evening meal Orally Once a day; Duration: 30 day(s) Active Fenofibrate 160 MG Tablet 1 tablet with a meal Orally Once a day Active oxyCODONE HCl 5 MG Tablet 1 tablet as ne eded Orally every 6 hrs Active LORazepam 0.5 MG Tablet 1 tablet at bedt janice as needed Orally Once a day Active Aspir-81 81 MG Tablet Delayed Release 1 tablet Orally Once a day Active busPIRone HCl 7.5 MG Tablet 1 tablet Ora lly Twice a day Active Vitamin D (Ergocalciferol) 95252 UNIT Capsule 1 capsule Orally ONCE A WEEK Active Immunizations Vaccine Route Administration Date Status Comme nts Influenza Unknown 01/24/2022 Refused Social History Social History Additional Details Category Social Info Options Details Miscellaneous: Marital status: Occupation: retired Section Notes: Smoker < 1ppd; no sig alcoho l Smoker < 1ppd; no sig alcoho l Problems Problem Type SNOMED Code ICD Code Onset Dates Problem Status W/U Status Risk Notes Problem Screening for malignant neoplasm of colon (197194942) Encounter for screening for malignant neoplasm of colon (Z12.11) Active confirmed Problem History of adenomatous polyp of colon (014170676) History of adenomatous polyp of colon (Z86.010) Active confirmed Problem Constipation (87803069) Constipation (K59.00) Active confirmed Problem Change in bowel habit (11131422) Change in bowel habits (R19.4) Active confirmed Problem Screening for malignant neoplasm of rectum (001308702) Encounter for screening for malignant neoplasm of rectum (Z12.12) Active confirmed Problem Long-term current use of antiplatelet drug (005053376857402) Long-term use of aspirin therapy (Z79.82) Active confirmed Problem Family history of malignant neoplasm of gastrointestinal tract (060698740) Family history of colon cancer in father (Z80.0) Active confirmed Problem Diverticulosis of colon (452698330) Diverticulosis of colon (K57.30) Active confirmed Plan Of Treatment Future Test Test Name Order Date COLONOSCOPY 08/03/2015 COLONOSCOPY 01/24/2022 Insurance Providers Payer Name Payer Address Payer Phone Subscriber Number Group Number Insured Name Patient Relationship to Insured Coverage Start Date Coverage End Date [place] [address] [facility] [place] [id number] [phone] [id number] CANDELARIO NUNN Self - patient is the insured [employer] [address] [place] [address] [id number] CANDELARIO NUNN Self - patient is the insured Medical (General) History Medical History History ICD Code Colonoscopy 10-31-2001--1 small tubular ad enoma, internal hemorrhoids Anxiety Urinary bladder cancer treated by cystos copy in 2000 Hyperlipidemia Denies DC,CVA,Lung disease,renal disease Negative screening colonoscopy in 11/2015 NIDDM Lumbar spine arthritis Surgical History Surgery Date(Month/Year) Hysterectomy and removal of one ovary Bladder suspension Cystoscopy for bladder cancer Lipoma
[2025-05-17 10:03] LABS: MANUAL DIFF FLAG NO
[2025-05-17 10:16] LABS: Appearance Urine Clear; Glucose Urine UA Negative (Negative); PH 6.0 (5.0-9.0); Specific Gravity - Urine 1.015 (1.005-1.025); UMIC TRIGGER UACC YES
[2025-05-17 10:19] LABS: Hematocrit 46.5 % (37.0-47.0); Hemoglobin 15.0 g/dl (12.0-16.0); Imm Gran Abs Auto 0.03 X10*3/uL (0.00-0.03); Imm Gran Pct Auto 0.3 % (0.0-0.4); Lymphocytes Absolute Auto 4.2 X10*3/uL (1.2-4.9); Mean Corpuscular HGB Conc 32.3 g/dl (31.0-35.0); Mean Corpuscular Hemoglobin 32.3 pg (27.0-33.0); Mean Corpuscular Volume 100.0 fL (80.0-98.0); NRBC Abs Auto 0.000 X10*3/uL (0.0-0.012); NRBC Pct Auto 0.0 /100WBC (0.0-0.2); Platelet Count 239 X10*3/uL (160-400); Red Blood Count 4.65 X10*6/uL (4.20-5.50); White Blood Count 9.3 X10*3/uL (4.8-10.8)
[2025-05-17 10:23] LABS: UACC Culture Trigger YES
[2025-05-17 10:34] LABS: Alanine Aminotransferase 30 U/L (0-31); Albumin Level 4.7 g/dL (3.5-5.0); Alkaline Phosphatase 48 U/L (39-117); Anion Gap 16 (12-20); Aspartate Amino Transferase 34 U/L (5-31); Blood Urea Nitrogen 11 mg/dL (9-16); Calcium 10.3 mg/dL (8.4-10.2); Carbon Dioxide 28 mmol/L (22-29); Chloride 107 mmol/L (96-108); Estimated Glomerular Filt Rate > 60; Potassium 4.5 mmol/L (3.3-5.1); Sodium 146 mmol/L (135-145); Total Protein 7.4 g/dL (6.5-8.0)
[2025-05-17 11:07] LABS: Microalbum/Creatinine Ratio Ur 10.0 ug/mg cr (<30)
== END 2025-05-17 06:10 ==
LOC: HO.HMGCLDS 06:09
PROVIDERS: Internal Medicine; PCP Internal Medicine; Visit Provider Internal Medicine
DX: F41.1 Generalized anxiety disorder (principal); E78.9 Disorder of lipoprotein metabolism, unspecified; E13.9 Other specified diabetes mellitus without complications; M47.816 Spondylosis without myelopathy or radiculopathy, lumbar region; G47.9 Sleep disorder, unspecified; Z85.51 Personal history of malignant neoplasm of bladder
CPT/HCPCS: 36415; 80053; 81001; 81003; 82043; 82570; 83036; 83721; 85025; 87086

== ENCOUNTER 2025-05-26 09:31 | Outpatient (REF) | payer MEDICARE, OTHER, SELFPAY ==
[2025-05-26 17:17] LABS: Appearance Urine Clear; Glucose Urine UA Negative (Negative); PH 6.5 (5.0-9.0); Specific Gravity - Urine 1.010 (1.005-1.025)
== END 2025-05-26 09:32 | disposition home or self-care (01) ==
LOC: HO.HMGCLDS 09:31
PROVIDERS: PCP Internal Medicine; Visit Provider Internal Medicine
DX: F41.1 Generalized anxiety disorder (principal); E78.5 Hyperlipidemia, unspecified; G89.29 Other chronic pain; G47.00 Insomnia, unspecified; E13.9 Other specified diabetes mellitus without complications; N39.0 Urinary tract infection, site not specified; M47.816 Spondylosis without myelopathy or radiculopathy, lumbar region; F43.9 Reaction to severe stress, unspecified; F17.210 Nicotine dependence, cigarettes, uncomplicated; Z79.899 Other long term (current) drug therapy
CPT/HCPCS: 81003; 99212

== ENCOUNTER 2025-05-26 09:31 | Outpatient (AMB) | payer MEDICARE, OTHER, SELFPAY ==
[2025-05-26 09:34] VITALS: BP 108/62; PULSE 85; RESP 17; O2SAT 95; BMI 24.0
--- NOTE | 2025-05-26 09:34 | A.OFFPC_ITS ---
Vital Signs 05/26/25 09:34 Height 5 ft 5 in Weight 144 lb 2 oz BMI 24.0 BP 108/62 Blood Pressure Location Rt brachial Position Sitting Respiration 17 Pulse 85 Pulse Source Pulse Oximeter Pulse Oximetry (%) 95 Oxygen Delivery Method Room Air Intake Visit Reasons: 3 mo follow up reschedule Allergies levofloxacin (From LEVAQUIN) Allergy (Intermediate, Verified 05/26/25 09:34) RED LINE UP ARM FROM IV SITE, redness, itching, swelling barium sulfate Adverse Reaction (Intermediate, Verified 05/26/25 09:34) agitation varenicline Adverse Reaction (Intermediate, Verified 05/26/25 09:34) agitation Medication List - Last Reconciled 05/26/25 by Maciel Cardona MD albuterol sulfate 90 mcg/actuation (Ventolin HFA) 1 inh inhalation QID PRN 30 days aspirin (Adult Aspirin Regimen) 81 mg PO DAILY bimatoprost 0.01% 1 drp ophthalmic (eye) BEDTIME cholecalciferol (vitamin D3) 25 mcg PO DAILY dorzolamide 2% 1 drp ophthalmic (eye) DAILY fenofibrate 160 mg PO DAILY 90 days lorazepam 0.5 mg PO DAILY PRN 90 days metformin 500 mg PO BID 90 days multivitamin 1 tab PO DAILY oxycodone 5 mg PO ONCE PRN 30 days simvastatin 20 mg PO DAILY 90 days Tobacco use date assessed: 05/26/25 Fall risk assessment: No Falls in past year Last assessed Fall Risk: 05/26/25 Dental Screening Dental Screen Date: 05/26/25 Did you have a dental visit in the last 12 months?: No Did you have a dental problem in the last 6 months where you did not have access to dental care?: No Was dental information given to patient?: Patient declined HPI HPI Comments History of Present Illness Details History of Present Illness The patient is a 70 year old female presenting for a 3-month follow-up appointment. Hyperlipidemia: - The patient has a history of a lipid d isorder and difficulty tolerating statins. - Recent non-fasting labs from May 17 showed a very high LDL of 209. - She was prescribed simvastatin in October but is not currently taking it due to chronic diarrhea as a side effect. - She is currently taking fenofibrate 16 0 mg. Type 2 diabetes mellitus: - The patient has type 2 diabetes and re cent labs showed a hemoglobin A1c of 6.6 and a random glucose of 134. - She takes metformin 500 mg BID. Chronic Pain: - The patient experiences chronic joint aches and pains, which can be exacerbated by cold weather. - She takes oxycodone 5 mg as needed for this pain, though her usage is rare. Anxiety and Insomnia: - The patient has a history of anxiety a nd difficulty sleeping. - She is prescribed lorazepam 0.5 mg as needed and reports using it less frequently, even during a recent stressful month. Urinary Tract Infections: - The patient has a history of recurrent UTIs. - A week or two ago, she experienced a r espiratory flu and was concerned she might also have a UTI. - A urine culture was performed but was contaminated, so no antibiotics were prescribed as no bacteria was grown. Medical History: - Hyperlipidemia - Type 2 diabetes mellitus - Chronic joint aches and pains - Recurrent urinary tract infections - Anxiety - Insomnia - Tobacco dependence - Had respiratory flu approximately one to two weeks ago. Medications: - Fenofibrate 160mg for hyperlipidemia. - Metformin 500mg BID for type 2 diabete s. - Oxycodone 5mg as needed for chronic vijaya int aches and pains. - Lorazepam 0.5mg as needed for anxiety. - Simvastatin, prescribed in October, which the patient has not been taking. Social History: - Tobacco Use: The patient has a depende nce on tobacco and is trying to quit. - Stress: The patient reports stressors at home but feels she is managing them well. Diagnostic Results: - Labs from 05/17: - CBC: No anemia. - CMP: Sodium 146, electrolytes within n ormal limits, kidney function intact, calcium 10.3 (up from 9.9 in October), AST 34 (down from 37 in October). - Random glucose: 134. - Hemoglobin A1c: 6.6. - Non-fasting lipids: LDL 209. - Urinalysis: A previous urine culture w as contaminated with skin dom and did not grow any pathogenic bacteria. [facility] Medical History Fatty liver Bruit (arterial) Hx of lipoma Arthritis Anxiety Renal calculi Family history of colon cancer in father Family history of throat cancer Endometriosis Hyperlipidemia 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 Maternal Grandfather No problems noted. Paternal Grandfather No problems noted. Paternal Grandmother No problems noted. Sister No problems noted. Sister No problems noted. Son No problems noted. Daughter No problems noted. Daughter Substance use disorder Social History Housing: House Alcohol intake: never Patient Tobacco Use Status: Current everyday Tobacco user Tobacco use type: Cigarette Cigarette Packs Per Day: 0.5 Cigarettes Per Day: 10 e-Cigarette/Vaping Use: Never Used Second Hand Smoke Exposure: Yes service: No Current occupational status: retired Cognitive needs: No Hearing needs: No Vision needs: Yes Questionnaire Thrive Questionnaire Date Thrive assessed: 08/19/24 I am a: Patient What is your living situation today?: I have a steady place to live Within the past 12 months, did the food you bought not last and you didn't have the money to get more?: Never true Within the past 12 months, did you worry whether your food would run out before you got money to buy more?: Never true Do you have trouble paying for medicines?: No Do you have trouble getting transportation to medical appointments?: No Do you have trouble paying your heating and electricity bill?: No Do you have trouble taking care of your child, family member or friend?: No Do you have trouble with day-to-day activities such as bathing, preparing meals, shopping, managing finances, etc.?: No Are you currently unemployed and looking for a job?: No Are you interested in more education?: No Currently or been in a relationship where the following occur: No concerns reported THRIVE Score: 0 AUDIT C Alcohol Use Questionnaire (AUDIT-C) 1. How often do you have a drink containing alcohol?: Monthly or less 2. How many drinks containing alcohol do you have on a typical day when you are drinking?: 1 or 2 3. How often do you have six or more drinks on one occasion?: Never Total Score: 1 Score Reviewed/Action Taken: Yes HARSHIL-7 AMB Questionnaire HARSHIL-7 Date HARSHIL - 7 assessed: 08/21/24 Source: Developed by Drs. Jian Contreras, Florina Almanzar, Lionel Subramanian and colleagues, with an educational hipolito from [employer]. Review of Systems Narrative Review of Systems - General: No fever no chills - Neurological: No headaches no dizziness - Ear nose throat: No sore throat no hearing difficulty no ear pain - Cardiovascular: No syncope, no chest pain, no palpitations - Gastrointestinal: No nausea vomiting or diarrhea - Endocrine: No polyuria polydipsia no heat intolerance - Genitourinary: No dysuria , no blood in urine Physical exam (Primary Care) Vital Signs: Last Vital Signs Pulse 85 05/26/25 09:34 Resp 17 05/26/25 09:34 BP 108/62 05/26/25 09:34 Pulse Ox 95 05/26/25 09:34 Oxygen Delivery Method Room Air 05/26/25 09:34 BMI result Body Mass Index 24.0 Tobacco/Smoking Status: Tobacco use Status Tobacco use date assessed 05/26/25 05/26/25 09:36 Patient Tobacco Use Status Current everyday Tobacco 05/26/25 09:36 Tobacco use type Cigarette 05/26/25 09:36 e-Cigarette/Vaping Use Never Used 05/26/25 09:36 Thrive Assessment: Date of Thrive Assessment Date Thrive assessed 08/19/24 05/26/25 09:36 Currently or been in a relationship where the following occur: No concerns reported Narrative Physical Exam - General: No acute distress - HEENT: No acute findings - Neck: Supple - Respiratory system: Able to talk in full sentences, no audible wheeze - Cardiovascular: S1-S2 regular in rate and rhythm - Gastrointestinal: No pain - Extremities: No new findings - FIELD KILN BURNER: Alert awake oriented x3 motor intact - Skin: Normal turgor Coding Level of Care Code Est Pt Level 4 (50631) Add On Problem Visit Only Diagnoses Diabetes 1.5, managed as type 2 E13.9 Recurrent UTI N39.0 Anxiety, generalized F41.1 Lipid disorder E78.9 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 complication: without myelopathy or radiculopathy Facet arthropathy, lumbar M47.816 Difficulty sleeping G47.9 Stress at home F43.9 Tobacco dependence F17.200 Assessment & Plan Assessment & Plan (1) Diabetes 1.5, managed as type 2: Code(s): E13.9 - Other specified diabetes mellitus without complications Category: Medical (2) Recurrent UTI: Code(s): N39.0 - Urinary tract infection, site not specified Category: Medical (3) Anxiety, generalized: Code(s): F41.1 - Generalized anxiety disorder Category: Medical (4) Lipid disorder: Code(s): E78.9 - Disorder of lipoprotein metabolism, unspecified Category: Medical (5) Degenerative joint disease (DJD) of lumbar spine: Code(s): M47.816 - Spondylosis without myelopathy or radiculopathy, lumbar region Category: Medical Qualifiers: Spinal osteoarthritis complication: without myelopathy or radiculopathy Qualified Code(s): M47.816 - Spondylosis without myelopathy or radiculopathy, lumbar region (6) Facet arthropathy, lumbar: Code(s): M47.816 - Spondylosis without myelopathy or radiculopathy, lumbar region Category: Medical (7) Difficulty sleeping: Code(s): G47.9 - Sleep disorder, unspecified Category: Medical (8) Stress at home: Code(s): F43.9 - Reaction to severe stress, unspecified Category: Social Hx (9) Tobacco dependence: Code(s): F17.200 - Nicotine dependence, unspecified, uncomplicated Category: Medical Plan Problem List - Hyperlipidemia - Type 2 diabetes mellitus - Chronic pain - Anxiety - Recurrent urinary tract infections - Tobacco dependence - Insomnia Plan - Hyperlipidemia: Reintroduce simvastatin; the patient will try the 20 mg dose and decrease to 10 mg if side effects occur. - labs: The patient will have repeat fasting labs in three months to monitor the lipid panel, including a breakdown of HDL and triglycerides. - Urinary concerns: A repeat urinalysis will be performed today to rule out a urinary tract infection, although one is not suspected. - Medications: A 30-day supply of oxycodone will be sent to the pharmacy. - Medications: no lorazepam precribed this visit. - Medications: The pharmacy will be instructed to contact the office for refills of metformin and fenofibrate when the patient needs them, as she currently has a three-month supply. - Follow-up: The patient will return in three months for her scheduled appointment in July. Orders: Orders Complete Blood Count Auto Diff Today E13.9 - Other specified diabetes mellitus without complications, E78.9 - Disorder of lipoprotein metabolism, unspecified, F41.1 - Generalized anxiety disorder, R94.31 - Abnormal electrocardiogram [ECG] [EKG] Comprehensive [place]. Panel Fast Today E13.9 - Other specified diabetes mellitus without complications, E78.9 - Disorder of lipoprotein metabolism, unspecified, F41.1 - Generalized anxiety disorder, R94.31 - Abnormal electrocardiogram [ECG] [EKG] Microalbumin, Random (w Creat) Today E13.9 - Other specified diabetes mellitus without complications UA CC w/rflx Micro + Cult Today N39.0 - Urinary tract infection, site not specified Lipid Panel Today E13.9 - Other specified diabetes mellitus without complications, E78.9 - Disorder of lipoprotein metabolism, unspecified, F41.1 - Generalized anxiety disorder, R94.31 - Abnormal electrocardiogram [ECG] [EKG] Hemoglobin A1c Today E13.9 - Other specified diabetes mellitus without complications Medications: Refilled oxycodone partial refill permitted 5 mg PO ONCE PRN 30 tabs 0RF pain 30 days
--- OUTSIDE RECORDS SUMMARY | 2025-05-26 09:55 | XMS_ITS | Patient Health Record ---
Author Organization [facility] Address [address] [place] [id number] Care Team Providers Care Environmental Journalist Name Role Phone Brendan DUTTON, [facility] Primary Care Provider Jian Beckham [phone] Allergies Allergen (clinical drug ingredient) Drug/Non Drug [...] Twice a day Active Vitamin D (Ergocalciferol) 29804 UNIT Capsule 1 capsule Orally ONCE A [...] Problem Screening for malignant neoplasm of colon (713010966) Encounter for screening for malignant neoplasm of colon (Z12.11) Active confirmed Problem History of adenomatous polyp of colon (423046766) History of adenomatous polyp of colon (Z86.010) Active confirmed Problem Constipation (78250414) Constipation (K59.00) Active confirmed Problem Change in bowel habit (54220125) Change in bowel habits (R19.4) Active confirmed Problem Screening for malignant neoplasm of rectum (353176451) Encounter for screening for malignant neoplasm of rectum (Z12.12) Active confirmed Problem Long-term current use of antiplatelet drug (860989829513419) Long-term use of aspirin therapy (Z79.82) Active confirmed Problem Family history of malignant neoplasm of gastrointestinal tract (442944302) Family history of colon cancer in father (Z80.0) Active confirmed Problem Diverticulosis of colon (765006161) Diverticulosis of colon (K57.30) Active confirmed Plan Of Treatment Future Test Test Name Order Date COLONOSCOPY 08/03/2015 COLONOSCOPY 01/24/2022 Insurance Providers Payer Name Payer Address Payer Phone Subscriber Number Group Number Insured Name Patient Relationship to Insured Coverage Start Date Coverage End Date [place] [address] [facility] [place] [id number] [phone] [id number] CANDELARIO NUNN Self - patient is the insured [employer] [address] [place] [address] [id number] CANDELARIO NUNN Self - patient is the insured Medical (General) History Medical History History ICD Code Colonoscopy 10-31-2001--1 small tubular ad enoma, internal hemorrhoids Anxiety Urinary bladder cancer treated by cystos copy in [address],CVA,Lung disease,renal disease Negative screening colonoscopy in 11/2015 NIDDM Lumbar spine arthritis Surgical History Surgery Date(Month/Year) Hysterectomy and removal of one ovary Bladder suspension Cystoscopy for bladder cancer Lipoma
== END 2025-05-26 10:53 | disposition home or self-care (01) ==
LOC: HO.HMCC 09:32
PROVIDERS: PCP Internal Medicine; Visit Provider Internal Medicine
DX: E13.9 Other specified diabetes mellitus without complications (principal); N39.0 Urinary tract infection, site not specified; F41.1 Generalized anxiety disorder; E78.9 Disorder of lipoprotein metabolism, unspecified; M47.816 Spondylosis without myelopathy or radiculopathy, lumbar region; G47.9 Sleep disorder, unspecified; F43.9 Reaction to severe stress, unspecified; F17.200 Nicotine dependence, unspecified, uncomplicated